=== PATIENT | male | born 1965 | race Caucasian/White ===

== ENCOUNTER 2018-12-09 13:43 | Outpatient (CLI) | payer MEDICARE, MEDICAID ==
[~2018-12-09 13:43] MED LIST: ALBU18HF2 INH; ALLO300T2 PO; ATEN-169 PO; ATOR20TA PO; BACL10TA PO; DILT30TA34 PO; DULO60CA45 PO; FLO0.4C PO; GABA-530 PO; GARL1TAB2 PO; LISI1TAB13 PO; MULT-1074 PO; NABU500T2 PO; NITR0.4T SL; OMEG1CAP2; OMEG300C3; OXYC-511 PO; PANT40TA4 PO; ZIPR60CA2 PO; marijuana
[2018-12-09] MEDS ORDERED: ALBU18HF2 INH (14:40)
[2018-12-09 15:03] LABS: BASOPHILS % (AUTO) 0.5 % (0-1); EOSINOPHILS # (AUTO) 0.3 X10'3 (0-0.9); LYMPHOCYTES # (AUTO) 1.2 X10'3 (1.1-4.8); LYMPHOCYTES % (AUTO) 14.3 % (21-51); MEAN CORPUSCULAR HEMOGLOBIN 31.1 PG (27.0-31.0); MEAN CORPUSCULAR HGB CONC 34.5 g/dL (33.0-36.5); MEAN CORPUSCULAR VOLUME 90.1 FL (78-98); MEAN PLATELET VOLUME 8.6 FL (7.4-10.4); MONOCYTES # (AUTO) 0.5 X10'3 (0-0.9); MONOCYTES % (AUTO) 6.3 % (2-12); NEUTROPHILS # (AUTO) 6.4 X10'3 (1.8-7.7); NEUTROPHILS % (AUTO) 75.9 % (42-75); PRE OP HEMATOCRIT 41.2 % (42.0-52.0); PRE OP HEMOGLOBIN 14.2 g/dL (14.0-17.9); PRE OP PLATELET COUNT 258 X10'3 (140-440); RED BLOOD COUNT 4.57 X10'6 (4.70-6.10); RED CELL DISTRIBUTION WIDTH 13.7 % (11.5-14.5)
[2018-12-09 15:10] LABS: CLARITY,URINE CLOUDY (Clear); COLOR,URINE YELLOW (Yellow); GLUCOSE, URINE NEGATIVE (Neg); KETONES,URINE NEGATIVE (Neg); LEUKOCYTE ESTERASE ,URINE MODERATE (Neg); NITRITES, URINE POSITIVE (Neg); OCCULT BLOOD,URINE TRACE-INTACT (Neg); PH,URINE 6.5 (4.8-8.0); PROTEIN,URINE NEGATIVE (Neg); UROBILINOGEN,URINE 0.2 E.U/dL (0.2-1.0)
[2018-12-09 15:12] LABS: UA COLLECTION TYPE NON-SPECIFIED
[2018-12-09 15:13] LABS: ALBUMIN 3.8 G/DL (3.4-5.0); ALBUMIN/GLOBULIN RATIO 1.1 (1.1-1.5); ALKALINE PHOSPHATASE 69 IU/L (46-116); BLOOD UREA NITROGEN 19 MG/DL (7-18); BUN/CREATININE RATIO 14.7 (5.4-32.0); CALCIUM 9.6 MG/DL (8.5-10.1); CHLORIDE 106 MMOL/L (99-107); CREATININE 1.29 MG/DL (0.60-1.10); PRE OP ALT 27 U/L (30-65); PRE OP ANION GAP 10 (8-16); PRE OP AST 15 U/L (10-37); PRE OP BILIRUB, TOTAL 0.2 MG/DL (0.0-1.0); PRE OP GLUCOSE 159 MG/DL (70-104); PRE OP POTASSIUM 4.4 MMOL/L (3.4-5.1); PRE OP SODIUM 142 MMOL/L (135-145); TOTAL CARBON DIOXIDE 26.5 MMOL/L (24-32); TOTAL PROTEIN 7.3 G/DL (6.4-8.2); eGFR 58 ML/MIN
[2018-12-09 15:18] LABS: BACTERIA,URINE 3+ /HPF (Neg); SQUAMOUS EPITHELIAL CELL,UR FEW /LPF (FEW)
[2018-12-09 15:19] LABS: RBC,URINE 0-2 /HPF (0-2)
[2018-12-09] MEDS ORDERED: ASCO500C15 PO (17:44)
[2018-12-09] MEDS ORDERED: NAPR220T67 PO (17:44)
[2018-12-09] MEDS ORDERED: ATOR20TA66 PO (17:47)
[2018-12-09] MEDS ORDERED: HYDR50TA3 PO (17:47)
[2018-12-09] MEDS ORDERED: LISI40TA4 PO (17:47)
[2018-12-09] MEDS ORDERED: METO-411 PO (17:47)
[2018-12-09] MEDS ORDERED: FENO160T30 PO (17:47)
== END 2018-12-09 23:59 | disposition home or self-care (01) ==
LOC: PRE-OP 13:43 → EDSTATUS 12-14 09:15
PROVIDERS: ATTEND Surgery
DX: K43.2 Incisional hernia without obstruction or gangrene (principal); Z53.9 Procedure and treatment not carried out, unspecified reason; Z01.810 Encounter for preprocedural cardiovascular examination; Z01.812 Encounter for preprocedural laboratory examination; N39.0 Urinary tract infection, site not specified; B96.20 Unspecified Escherichia coli [E. coli] as the cause of diseases classified elsewhere
CPT/HCPCS: 36415; 80053; 81001; 85025; 87077; 87088; 87186; 93005

== ENCOUNTER 2019-03-15 06:19 | Day surgery (SDC) | payer MEDICARE, MEDICAID ==
[2019-03-11 10:47] LABS: BASOPHILS # (AUTO) 0.1 X10'3 (0-0.2); BASOPHILS % (AUTO) 0.5 % (0-1); EOSINOPHILS # (AUTO) 0.2 X10'3 (0-0.9); EOSINOPHILS % (AUTO) 1.9 % (0-6); LYMPHOCYTES # (AUTO) 1.4 X10'3 (1.1-4.8); LYMPHOCYTES % (AUTO) 15.5 % (21-51); MEAN CORPUSCULAR HEMOGLOBIN 30.8 PG (27.0-31.0); MEAN CORPUSCULAR HGB CONC 33.5 g/dL (33.0-36.5); MONOCYTES # (AUTO) 0.8 X10'3 (0-0.9); MONOCYTES % (AUTO) 8.9 % (2-12); NEUTROPHILS # (AUTO) 6.8 X10'3 (1.8-7.7); NEUTROPHILS % (AUTO) 73.2 % (42-75); PRE OP HEMATOCRIT 43.8 % (42.0-52.0); PRE OP HEMOGLOBIN 14.7 g/dL (14.0-17.9); PRE OP PLATELET COUNT 245 X10'3 (140-440); RED BLOOD COUNT 4.77 X10'6 (4.70-6.10); RED CELL DISTRIBUTION WIDTH 13.3 % (11.5-14.5)
[2019-03-11 10:52] LABS: CLARITY,URINE CLEAR (Clear); COLOR,URINE YELLOW (Yellow); GLUCOSE, URINE NEGATIVE (Neg); KETONES,URINE NEGATIVE (Neg); LEUKOCYTE ESTERASE ,URINE NEGATIVE (Neg); NITRITES, URINE NEGATIVE (Neg); OCCULT BLOOD,URINE NEGATIVE (Neg); PROTEIN,URINE NEGATIVE (Neg); UROBILINOGEN,URINE 0.2 E.U/dL (0.2-1.0)
[2019-03-11 10:58] LABS: PRE OP PROTIME 10.6 SECONDS (9.0-12.0)
[2019-03-11 10:59] LABS: UA COLLECTION TYPE NON-SPECIFIED
[2019-03-11 11:01] LABS: ALBUMIN 4.5 G/DL (3.4-5.0); ALBUMIN/GLOBULIN RATIO 1.4 (1.1-1.5); ALKALINE PHOSPHATASE 63 IU/L (46-116); BLOOD UREA NITROGEN 32 MG/DL (7-18); BUN/CREATININE RATIO 18.3 (5.4-32.0); CALCIUM 9.5 MG/DL (8.5-10.1); CHLORIDE 99 MMOL/L (99-107); CREATININE 1.75 MG/DL (0.60-1.10); PRE OP ALT 30 U/L (30-65); PRE OP ANION GAP 11 (8-16); PRE OP AST 15 U/L (10-37); PRE OP BILIRUB, TOTAL 0.4 MG/DL (0.0-1.0); PRE OP GLUCOSE 109 MG/DL (70-104); PRE OP POTASSIUM 4.5 MMOL/L (3.4-5.1); PRE OP SODIUM 135 MMOL/L (135-145); TOTAL CARBON DIOXIDE 25.4 MMOL/L (24-32); TOTAL PROTEIN 7.7 G/DL (6.4-8.2); eGFR 41 ML/MIN
[~2019-03-15] VITALS: Ht 172.7 cm; Wt 122.5 kg
[~2019-03-15 06:19] MED LIST changes: +ALBU2.5V10; -ATEN-169 PO; -ATOR20TA PO; -BACL10TA PO; +DILT120C51 PO; -DILT30TA34 PO; +DOCUMENT DATE & TIME OF BETA-BLOCKER PO ONE; +FENO160T30 PO; +FISH12002 PO; -GARL1TAB2 PO; +HYDR50TA3 PO; +IBUP-1984 PO; -LISI1TAB13 PO; +LISI40TA4 PO; +METO-411 PO; -NABU500T2 PO; -NITR0.4T SL; +NUGENIX PO; -OMEG1CAP2; -OMEG300C3; -OXYC-511 PO; +albuterol 2.5 MG/3 ML nebule NEB ONE; +clindamycin-Cleocin 900mg/D5W 50 ML IV ONE; +famotidine 20mg tablet PO ONE; +ringers solution, lacted 1,000 ML IV SCH
[2019-03-15] MEDS ORDERED: BUPIVAcaine/PF 2.5 mg/ml (0.25%) 30ml vial ONE (06:46)
[2019-03-15] MEDS ORDERED: ceFAZolin 1000mg inj ONE (06:46)
[2019-03-15] MEDS ORDERED: acetaminophen 325mg tablet PO ONE (08:45)
--- NOTE | 2019-03-15 09:00 | NUR ---
(0650) ARRIVED TO PAS UNIT VS: T 103.3, BP139/75, P 101, R 20, SAO2 95%. PT STATES HE STARTED TO FEEL "BAD" YESTERDAY. MOIST COUGH PRESENT, DENIES SPUTUM. LS DIMINISHED BILAT. DR DACOSTA NOTIFIED. SURGERY CANCELED AND NEW ORDERS RECEIVED. (0840) CURRENT T 102.0. DR DACOSTA PRESENT AT BEDSIDE, DISCUSSED TREATMENT AND RESCHEDULING OF SURGERY WITH PT. PRESCRIPTION FAXED TO PT'S PHARMACY. (0900) PT VERBALIZED UNDERSTANDING OF DC INSTRUCTIONS, HOME VIA AMBULATORY WITH SON TO PRIVATE CAR.
== END 2019-03-15 09:00 | disposition home or self-care (01) ==
LOC: PAS 06:19
PROVIDERS: ATTEND Surgery
DX: K43.2 Incisional hernia without obstruction or gangrene (principal); Z53.8 Procedure and treatment not carried out for other reasons; J44.9 Chronic obstructive pulmonary disease, unspecified; K21.9 Gastro-esophageal reflux disease without esophagitis; F32.9 Major depressive disorder, single episode, unspecified; F41.9 Anxiety disorder, unspecified; Z87.891 Personal history of nicotine dependence; Z98.890 Other specified postprocedural states; Z90.49 Acquired absence of other specified parts of digestive tract; Z96.653 Presence of artificial knee joint, bilateral; Z88.0 Allergy status to penicillin
CPT/HCPCS: 36415; 71045; 80053; 81003; 85025; 85610; 85730; J0690; J3490; J7120

== ENCOUNTER 2019-03-29 10:48 | Observation (INO) | payer MEDICARE, MEDICAID ==
[2019-03-28 12:02] LABS: BASOPHILS % (AUTO) 0.4 % (0-1); EOSINOPHILS # (AUTO) 0.2 X10'3 (0-0.9); EOSINOPHILS % (AUTO) 1.6 % (0-6); LYMPHOCYTES # (AUTO) 1.2 X10'3 (1.1-4.8); LYMPHOCYTES % (AUTO) 11.5 % (21-51); MEAN CORPUSCULAR HEMOGLOBIN 30.9 PG (27.0-31.0); MEAN CORPUSCULAR HGB CONC 33.8 g/dL (33.0-36.5); MEAN CORPUSCULAR VOLUME 91.6 FL (78-98); MEAN PLATELET VOLUME 8.5 FL (7.4-10.4); MONOCYTES # (AUTO) 0.6 X10'3 (0-0.9); MONOCYTES % (AUTO) 6.2 % (2-12); NEUTROPHILS # (AUTO) 8.1 X10'3 (1.8-7.7); NEUTROPHILS % (AUTO) 80.3 % (42-75); PRE OP HEMATOCRIT 41.9 % (42.0-52.0); PRE OP HEMOGLOBIN 14.2 g/dL (14.0-17.9); PRE OP PLATELET COUNT 266 X10'3 (140-440); RED BLOOD COUNT 4.58 X10'6 (4.70-6.10); RED CELL DISTRIBUTION WIDTH 13.4 % (11.5-14.5)
[2019-03-28 12:07] LABS: CLARITY,URINE CLEAR (Clear); COLOR,URINE YELLOW (Yellow); GLUCOSE, URINE NEGATIVE (Neg); KETONES,URINE NEGATIVE (Neg); LEUKOCYTE ESTERASE ,URINE NEGATIVE (Neg); NITRITES, URINE NEGATIVE (Neg); OCCULT BLOOD,URINE NEGATIVE (Neg); PROTEIN,URINE NEGATIVE (Neg); UROBILINOGEN,URINE 0.2 E.U/dL (0.2-1.0)
[2019-03-28 12:09] LABS: UA COLLECTION TYPE CLN CATCH MIDSTREAM
[2019-03-28 12:12] LABS: ALBUMIN 3.9 G/DL (3.4-5.0); ALBUMIN/GLOBULIN RATIO 1.1 (1.1-1.5); ALKALINE PHOSPHATASE 64 IU/L (46-116); BLOOD UREA NITROGEN 28 MG/DL (7-18); BUN/CREATININE RATIO 19.2 (5.4-32.0); CALCIUM 9.2 MG/DL (8.5-10.1); CHLORIDE 107 MMOL/L (99-107); CREATININE 1.46 MG/DL (0.60-1.10); PRE OP ALT 33 U/L (30-65); PRE OP ANION GAP 6 (8-16); PRE OP AST 17 U/L (10-37); PRE OP BILIRUB, TOTAL 0.3 MG/DL (0.0-1.0); PRE OP GLUCOSE 129 MG/DL (70-104); PRE OP POTASSIUM 4.6 MMOL/L (3.4-5.1); PRE OP SODIUM 141 MMOL/L (135-145); TOTAL CARBON DIOXIDE 28.1 MMOL/L (24-32); TOTAL PROTEIN 7.3 G/DL (6.4-8.2); eGFR 50 ML/MIN
[2019-03-29] VITALS (20 sets, daily range): BP systolic 123–155; BP diastolic 73–94
[~2019-03-29] VITALS: Ht 172.7 cm; Wt 123.6 kg
[~2019-03-29 10:48] MED LIST changes: -albuterol 2.5 MG/3 ML nebule NEB ONE; -ringers solution, lacted 1,000 ML IV SCH
[2019-03-29] MEDS ORDERED: ringers solution, lacted 1,000 ML IV SCH (13:01)
[2019-03-29] MEDS ORDERED: ondansetron/PF 4mg/2ml inj IV PRN ×2 (13:05→15:30)
[2019-03-29] MEDS ORDERED: proCHLORperazine 10 MG/2 ml inj IV PRN (13:05)
[2019-03-29] MEDS ORDERED: meperidine/PF 25mg/ml syringe IV PRN ×3 (13:05)
[2019-03-29] MEDS ORDERED: morphine 4 MG/ML inj SYRINge IV PRN ×2 (13:05)
[2019-03-29] MEDS ORDERED: ceFAZolin 1000mg inj ONE (13:42)
[2019-03-29] MEDS ORDERED: BUPIVAcaine/PF 2.5 mg/ml (0.25%) 30ml vial ONE (13:42)
[2019-03-29] MEDS ORDERED: sevoflurane 250ml liquid IH ONE (13:46)
[2019-03-29] MEDS ORDERED: glycopyrrolate 0.2mg/ml inj ONE (13:46)
[2019-03-29] MEDS ORDERED: rocuronium 10mg/ml inj IV ONE ×2 (13:46→14:57)
[2019-03-29] MEDS ORDERED: midazolam 2 mg/2 ml injection ONE (13:56)
[2019-03-29] MEDS ORDERED: fentaNYL /PF 50mcg/ml 5ml ampule ONE (13:57)
[2019-03-29] MEDS ORDERED: propofol inj 20 ML IV ONE ×2 (13:57→14:57)
[2019-03-29] MEDS ORDERED: dexamethasone sod phosphate 4mg/ml inj. ONE (14:57)
[2019-03-29] MEDS ORDERED: neostigmine methylsulfate 1 MG/ML 10ml vial ONE (14:58)
[2019-03-29] MEDS ORDERED: ondansetron/PF 4mg/2ml inj ONE (14:58)
[2019-03-29] MEDS ORDERED: ePHEDrine 50MG/ML INJ. ONE (15:07)
[2019-03-29] MEDS ORDERED: HYDROcodone/acetaminophen 5mg/325mg tablet PO PRN (15:30)
--- NOTE | 2019-03-29 15:30 | NUR ---
Received from OR via bed, accompanied by Anesthesiologist. Report received. Initial physical assessment done and recorded.
--- NOTE | 2019-03-29 17:00 | NUR ---
Discharge criteria met, report to receiving floor. Transferred to room in stable condition.
[2019-03-29] MEDS: HYDROcodone/acetaminophen 10/325mg tab PO PRN ×2 (17:06→21:37)
[2019-03-29] MEDS: ketorolac tromethamine 15mg/ml inj. IV PRN (17:15)
[2019-03-29] MEDS ORDERED: ibuprofen 200mg tablet PO PRN (17:15)
[2019-03-29] MEDS ORDERED: albuterol 2.5 MG/3 ML nebule NEB PRN (17:15)
--- NOTE | 2019-03-29 17:29 | NUR ---
Patient arrived to unit in a lot of pain after walking to the bed. Patient tolerated well but needed pain medication right away. Pain meds given. Water given. Patient oriented to the room, call light within reach.
[2019-03-29] MEDS: potassium CL 20mEq in D5-1/2NS 1,000 ML IV SCH (18:40)
--- NOTE | 2019-03-29 18:40 | NUR ---
Received report from MARBELLA Reyes. Patient is awake and alert on room air, in no apparent distress. Call light and items of frequent use within reach. Will continue to monitor.
--- NOTE | 2019-03-29 18:50 | NUR ---
Report given to [facility] nurse.
[2019-03-29] MEDS: gabapentin 300mg capsule PO SCH (20:31)
[2019-03-29] MEDS: enoxaparin 30mg/0.3ml syringe SQ SCH (20:32)
[2019-03-29] MEDS: clindamycin 600mg/D5W 50ml 50 ML IV SCH (20:32)
[2019-03-29] MEDS ORDERED: ziprasidone 20mg capsule PO SCH (21:00)
[2019-03-29] MEDS ORDERED: diltiazem CD 120mg capsule (once-daily) PO SCH (21:00)
[2019-03-29] MEDS ORDERED: tamsulosin 0.4mg capsule PO SCH (21:00)
[2019-03-29] MEDS ORDERED: NUGENIX PO SCH (21:00)
[2019-03-30] VITALS: BP 106/76
[2019-03-30] MEDS: potassium CL 20mEq in D5-1/2NS 1,000 ML IV SCH ×2 (00:45→07:30)
[2019-03-30] MEDS: ketorolac tromethamine 15mg/ml inj. IV PRN ×2 (00:47→10:56)
[2019-03-30 04:00] VITALS: BP 139/85
[2019-03-30] MEDS: HYDROcodone/acetaminophen 10/325mg tab PO PRN ×2 (05:28→10:57)
--- NOTE | 2019-03-30 06:35 | NUR ---
Problems reprioritized. Patient report given, questions answered & plan of care reviewed with MARBELLA Reyes.
[2019-03-30 07:24] VITALS: BP 162/69
[2019-03-30] MEDS ORDERED: fenofibrate 145mg tablet PO SCH (08:00)
[2019-03-30] MEDS ORDERED: duloxetine 30mg CAPSULE.DR PO SCH (08:00)
[2019-03-30] MEDS ORDERED: HYDROchlorothiazide 25mg tablet PO SCH (08:00)
[2019-03-30] MEDS ORDERED: non-formulary drug (Fish Oil/Borage/Flax/Om3,6,9#1 (Omega 3-6-9 1,200 mg Softgel) 1 CAP) PO SCH (08:00)
[2019-03-30] MEDS ORDERED: lisinopril 20mg tablet PO SCH (08:00)
[2019-03-30] MEDS ORDERED: multivitamins, therapeutics tablet PO SCH (08:00)
[2019-03-30] MEDS ORDERED: metoprolol succinate 25mg (24-HOUR) SR. Tablet PO SCH (08:00)
[2019-03-30] MEDS ORDERED: allopurinol 300 MG tablet PO SCH (08:00)
[2019-03-30] MEDS ORDERED: pantoprazole 40mg Tablet.DR PO SCH (08:00)
[2019-03-30] MEDS: gabapentin 300mg capsule PO SCH ×2 (08:08→13:01)
[2019-03-30] MEDS: clindamycin 600mg/D5W 50ml 50 ML IV SCH (08:17)
[2019-03-30] MEDS: enoxaparin 30mg/0.3ml syringe SQ SCH (08:17)
[2019-03-30 11:00] VITALS: BP 139/80
--- NOTE | 2019-03-30 15:39 | NUR ---
Patient discharge on nursing end, waiting on ride from . all belongings packed with patient, VSS. Education completed. Patient will make appointment to see Dr. Rivera in 1 week. Medication doses went over with patient with understanding.
== END 2019-03-30 15:45 | disposition home or self-care (01) ==
LOC: PAS 10:48 → OBSVTOIN 17:13 → INTOOBSV 17:13 → SUR 3N 17:13
PROVIDERS: ADMIT Surgery; ATTEND Surgery
DX: K43.2 Incisional hernia without obstruction or gangrene (principal)
CPT/HCPCS: 36415; 49561; 80053; 81003; 82948; 85025; 87081; 96365; 96366; 96372; 96375; 96376; C1713; C1781; G0378; J0690; J1100; J1650; J1885; J2250; J2270; J2405; J2704; J2710; J3010; J3480; J3490; 88302; A4215; A4618; A6449; A7000; J7120

== ENCOUNTER 2019-04-01 09:20 | Inpatient (IN) | payer MEDICARE, MEDICAID ==
[~2019-04-01] VITALS: Ht 172.7 cm; Wt 125.0 kg
[2019-04-01] VITALS (15 sets, daily range): BP systolic 99–144; BP diastolic 48–90
[~2019-04-01 09:20] MED LIST changes: -DOCUMENT DATE & TIME OF BETA-BLOCKER PO ONE; -clindamycin-Cleocin 900mg/D5W 50 ML IV ONE; -famotidine 20mg tablet PO ONE
[2019-04-01 10:09] LABS: CLARITY,URINE CLEAR (Clear); COLOR,URINE STRAW (Yellow); GLUCOSE, URINE NEGATIVE (Neg); KETONES,URINE NEGATIVE (Neg); LEUKOCYTE ESTERASE ,URINE NEGATIVE (Neg); NITRITES, URINE NEGATIVE (Neg); OCCULT BLOOD,URINE NEGATIVE (Neg); PH,URINE 5.5 (4.8-8.0); PROTEIN,URINE NEGATIVE (Neg); UROBILINOGEN,URINE 0.2 E.U/dL (0.2-1.0)
[2019-04-01 10:11] LABS: UA COLLECTION TYPE NON-SPECIFIED
[2019-04-01 10:23] LABS: ALANINE AMINOTRANSFERASE 26 U/L (12-78); ALBUMIN/GLOBULIN RATIO 0.9 (1.1-1.5); ALKALINE PHOSPHATASE 49 IU/L (46-116); ANION GAP 6 (8-16); ASPARTATE AMINO TRANSFERASE 17 U/L (10-37); BASOPHILS % (AUTO) 0.1 % (0-1); BILIRUBIN,TOTAL 0.3 MG/DL (0.1-1.0); BLOOD UREA NITROGEN 50 MG/DL (7-18); BUN/CREATININE RATIO 25.5 (5.4-32.0); CALCIUM 9.1 MG/DL (8.5-10.1); CHLORIDE 101 MMOL/L (99-107); CREATININE 1.96 MG/DL (0.60-1.10); EOSINOPHILS # (AUTO) 0.1 X10'3 (0-0.9); EOSINOPHILS % (AUTO) 1.1 % (0-6); GLUCOSE 107 MG/DL (70-104); HEMATOCRIT 23.8 % (42.0-52.0); HEMOGLOBIN 8.2 g/dl (14.0-17.9); LIPASE 181 U/L (73-393); LYMPHOCYTES # (AUTO) 0.8 X10'3 (1.1-4.8); LYMPHOCYTES % (AUTO) 7.8 % (21-51); MEAN CORPUSCULAR HEMOGLOBIN 31.3 PG (27.0-31.0); MEAN CORPUSCULAR HGB CONC 34.5 g/dL (33.0-36.5); MEAN PLATELET VOLUME 9.4 FL (7.4-10.4); MONOCYTES # (AUTO) 1.3 X10'3 (0-0.9); MONOCYTES % (AUTO) 12.2 % (2-12); NEUTROPHILS # (AUTO) 8.4 X10'3 (1.8-7.7); NEUTROPHILS % (AUTO) 78.8 % (42-75); PLATELET COUNT 220 X10'3 (140-440); POTASSIUM 5.6 MMOL/L (3.5-5.1); RED BLOOD COUNT 2.61 X10'6 (4.70-6.10); RED CELL DISTRIBUTION WIDTH 13.7 % (11.5-14.5); SODIUM 134 MMOL/L (135-145); TOTAL CARBON DIOXIDE 27.1 MMOL/L (24-32); TOTAL PROTEIN 6.3 G/DL (6.4-8.2); WHITE BLOOD COUNT 10.7 X10'3 (4.5-11.0); eGFR 36 ML/MIN
[2019-04-01] MEDS ORDERED: insulin regular, human 10 units/0.1 ml syringe IV ONE (10:45)
[2019-04-01] MEDS ORDERED: dextrose 50%-water 50ml dispensing syringe IV ONE (10:45)
--- NOTE | 2019-04-01 10:54 | NUR ---
ASAD FRANCES [phone]
--- NOTE | 2019-04-01 10:58 | NUR ---
DR DACOSTA WAS AT BEDSIDE, BOTH DR DACOSTA AND DR LYA INFORMED THAT PATIENT HAS NO RETROPERITONEAL BRUISING OR TENDERNESS
[2019-04-01] MEDS ORDERED: sodium bicarbonate (8.4%) 1 mEq/ml syringe IV ONE (11:00)
[2019-04-01] MEDS ORDERED: normal saline 1000ML IV soln IVB ONE (11:00)
[2019-04-01] MEDS ORDERED: ondansetron/PF 4mg/2ml inj IV ONE (11:15)
[2019-04-01 11:21] LABS: PARTIAL THROMBOPLASTIN TIME 28 SECONDS (22-32)
[2019-04-01] MEDS: morphine 4 MG/ML inj SYRINge IV PRN ×2 (11:21→13:26)
--- NOTE | 2019-04-01 11:38 | NUR ---
PT TO CT AND BACK
[2019-04-01 11:46] LABS: MAGNESIUM 2.2 MG/DL (1.5-2.4)
[2019-04-01] MEDS ORDERED: ATOR20TA66 PO (12:46)
[2019-04-01] MEDS ORDERED: BACL20TA7 PO (12:46)
[2019-04-01] MEDS ORDERED: magnesium 4gm in 100ml NS 100 ML IV PRN (12:55)
[2019-04-01] MEDS ORDERED: ondansetron/PF 4mg/2ml inj IV PRN ×2 (12:55→17:30)
[2019-04-01] MEDS ORDERED: magnesium Cl slow-release 64mg tablet PO PRN (12:55)
[2019-04-01] MEDS ORDERED: HYDROmorphone inj. 0.5 MG/0.5 ML DISP.SYRIN IV PRN (12:55)
[2019-04-01] MEDS ORDERED: potassium Cl 20 mEq SR tablet PO PRN ×2 (12:55)
[2019-04-01] MEDS ORDERED: HYDROmorphone 1 mg/ml syringe IV PRN (12:55)
[2019-04-01] MEDS ORDERED: magnesium 2GM in 50ml NS 50 ML IV PRN (12:55)
[2019-04-01] MEDS ORDERED: potassium CL 10mEq/100ml bag 100 ML IV PRN ×2 (12:55)
[2019-04-01] MEDS: normal saline 1000ml 1,000 ML IV SCH ×2 (13:25→22:47)
[2019-04-01] MEDS: gabapentin 300mg capsule PO SCH ×2 (13:26→20:41)
[2019-04-01 13:34] LABS: BASOPHILS % (AUTO) 0.2 % (0-1); EOSINOPHILS # (AUTO) 0.2 X10'3 (0-0.9); EOSINOPHILS % (AUTO) 1.4 % (0-6); HEMATOCRIT 22.5 % (42.0-52.0); HEMOGLOBIN 7.7 g/dl (14.0-17.9); LYMPHOCYTES % (AUTO) 9.2 % (21-51); MEAN CORPUSCULAR HEMOGLOBIN 31.1 PG (27.0-31.0); MEAN CORPUSCULAR VOLUME 91.3 FL (78-98); MEAN PLATELET VOLUME 8.8 FL (7.4-10.4); MONOCYTES # (AUTO) 1.4 X10'3 (0-0.9); MONOCYTES % (AUTO) 13.1 % (2-12); NEUTROPHILS # (AUTO) 8.2 X10'3 (1.8-7.7); NEUTROPHILS % (AUTO) 76.1 % (42-75); PLATELET COUNT 235 X10'3 (140-440); RED BLOOD COUNT 2.46 X10'6 (4.70-6.10); RED CELL DISTRIBUTION WIDTH 13.5 % (11.5-14.5); WHITE BLOOD COUNT 10.8 X10'3 (4.5-11.0)
--- NOTE | 2019-04-01 13:41 | NUR ---
attempted to call report to surgical per Gretchen"RN is in a room"
[2019-04-01 13:50] LABS: ALANINE AMINOTRANSFERASE 24 U/L (12-78); ALBUMIN 2.8 G/DL (3.4-5.0); ALBUMIN/GLOBULIN RATIO 0.9 (1.1-1.5); ALKALINE PHOSPHATASE 44 IU/L (46-116); ANION GAP 3 (8-16); ASPARTATE AMINO TRANSFERASE 18 U/L (10-37); BILIRUBIN,TOTAL 0.4 MG/DL (0.1-1.0); BLOOD UREA NITROGEN 49 MG/DL (7-18); BUN/CREATININE RATIO 27.1 (5.4-32.0); CALCIUM 8.6 MG/DL (8.5-10.1); CHLORIDE 105 MMOL/L (99-107); CREATININE 1.81 MG/DL (0.60-1.10); GLUCOSE 93 MG/DL (70-104); SODIUM 137 MMOL/L (135-145); TOTAL CARBON DIOXIDE 29.5 MMOL/L (24-32); eGFR 39 ML/MIN
--- NOTE | 2019-04-01 14:00 | NUR ---
Received report from MARBELLA Vera in ED. Patient arrived to floor with BP 99/48, HR 83, temp of 97.9, O2 sats 98% on room air. Will continue to monitor.
[2019-04-01] MEDS ORDERED: dronabinol 2.5mg capsule PO PRN (15:50)
[2019-04-01] MEDS ORDERED: hydrALAZINE 20mg/ml inj. IV PRN (17:30)
[2019-04-01] MEDS ORDERED: ringers solution, lacted 1,000 ML IV SCH (17:30)
[2019-04-01] MEDS ORDERED: labetalol 20mg/4ml (5mg/ml) syringe IV PRN (17:30)
[2019-04-01] MEDS ORDERED: morphine 4 MG/ML inj SYRINge IV PRN ×2 (17:30)
[2019-04-01] MEDS ORDERED: fentaNYL/PF 50MCG/1 ML 2ML syringe IV PRN (17:30)
--- NOTE | 2019-04-01 17:37 | NUR ---
Report given to MARBELLA Clarke in OR -nurse will be taking care of this patient. All questions and concerns addressed. Patient to go to surgery will continue to monitor.
--- NOTE | 2019-04-01 17:51 | NUR ---
Patient left in hospital bed to OR with OR staff. Pre-op checklist completed, chlorahexadine prep done on abdominal area. Blood to be transfused in OR.
[2019-04-01] MEDS ORDERED: sevoflurane 250ml liquid IH ONE (17:57)
[2019-04-01] MEDS ORDERED: MIDAZolam 5mg/5ml vial ONE (17:59)
[2019-04-01] MEDS ORDERED: fentaNYL /PF 50mcg/ml 5ml ampule ONE (17:59)
[2019-04-01] MEDS ORDERED: clindamycin phosphate 150mg/ml inj. ONE (18:15)
[2019-04-01] MEDS ORDERED: etomidate 2mg/ml inj. ONE (18:18)
[2019-04-01] MEDS ORDERED: rocuronium 10mg/ml inj IV ONE (18:18)
[2019-04-01] MEDS ORDERED: phenylephrine 10mg/ml inj. ONE ×2 (18:18→18:39)
[2019-04-01] MEDS ORDERED: albumin (Human) 5% 250ml 250 ML IV ONE ×4 (18:20→18:34)
[2019-04-01] MEDS ORDERED: albumin (Human) 5% 250ml 750 ML IV ONE (18:28)
--- NOTE | 2019-04-01 18:30 | NUR ---
Patient in room RAO 344. I have received report from Mile TYSON and had the opportunity to ask questions and assume patient care.
[2019-04-01] MEDS ORDERED: dexamethasone sod phosphate 4mg/ml inj. ONE (18:38)
[2019-04-01] MEDS ORDERED: ondansetron/PF 4mg/2ml inj ONE (18:38)
[2019-04-01] MEDS ORDERED: ePHEDrine 50MG/ML INJ. ONE (18:39)
[2019-04-01] MEDS ORDERED: neostigmine methylsulfate 1 MG/ML 10ml vial ONE (18:47)
[2019-04-01] MEDS ORDERED: glycopyrrolate 0.2mg/ml inj ONE (18:47)
--- NOTE | 2019-04-01 19:35 | NUR ---
Received from OR via BED , accompanied by Anesthesiologist DR SOW and report given by Anesthesiolgist, PATIENT WAKING UP, DENIES PAIN, V/S WNL, CSM INTACT, ABDOMEN DRESSING CDI WITH RILEY DRAIN X2 WITH MINIMAL OUTPUT AT THIS TIME, SCD ON, 20G PIV TO RUE, , SCD ON, F/C DRAINING CLEAR YELLOW URINE. ISTAT DRAWN AND NO NEW ORDERS AFTER IOT BEING REVIEWED BY DR SOW.
[2019-04-01 19:50] LABS: ISTAT CREATININE 1.7 mg/dL (0.8-1.3); ISTAT HGB 8.5 g/dl (14.0-18.0); ISTAT IONIZED CALCIUM 1.27 mmol/L (1.03-1.32); ISTAT K 5.2 mmol/L (3.5-5.1); POC BUN/CREATININE RATIO 23.5 (5.4-32.0)
[2019-04-01] MEDS: fentaNYL/PF 50MCG/1 ML 2ML syringe IV PRN ×2 (20:16→20:21)
--- NOTE | 2019-04-01 20:25 | NUR ---
PATIENT A&OX4, STATES PAIN BETTER CONTROLLED NOW, V/S WNL, CSM INTACT, ABDOMEN DRESSING CDI WITH RILEY DRAIN X2 WITH MINIMAL OUTPUT AT THIS TIME, SCD ON, 20G PIV TO RUE, , SCD ON, F/C DRAINING CLEAR YELLOW URINE. PATIENT TAKEN TO 344A WITH ALL BELONGINGS AND HOOKED UP TO MONITORS IN ROOM AND REPORT GIVEN TO RN WHO HAS TAKEN OVER PATIENT CARE. ADMIT
[2019-04-01] MEDS: diltiazem CD 120mg capsule (once-daily) PO SCH (20:41)
[2019-04-01] MEDS: ziprasidone 20mg capsule PO SCH (20:41)
[2019-04-01] MEDS: tamsulosin 0.4mg capsule PO SCH (20:41)
[2019-04-01 21:57] LABS: BASOPHILS % (AUTO) 0.1 % (0-1); EOSINOPHILS # (AUTO) 0.1 X10'3 (0-0.9); EOSINOPHILS % (AUTO) 0.6 % (0-6); HEMATOCRIT 25.7 % (42.0-52.0); HEMOGLOBIN 8.7 g/dl (14.0-17.9); LYMPHOCYTES # (AUTO) 0.5 X10'3 (1.1-4.8); LYMPHOCYTES % (AUTO) 4.6 % (21-51); MEAN CORPUSCULAR HEMOGLOBIN 30.1 PG (27.0-31.0); MEAN CORPUSCULAR HGB CONC 33.9 g/dL (33.0-36.5); MEAN CORPUSCULAR VOLUME 88.8 FL (78-98); MONOCYTES # (AUTO) 0.6 X10'3 (0-0.9); MONOCYTES % (AUTO) 5.6 % (2-12); NEUTROPHILS # (AUTO) 9.2 X10'3 (1.8-7.7); NEUTROPHILS % (AUTO) 89.1 % (42-75); PLATELET COUNT 191 X10'3 (140-440); RED BLOOD COUNT 2.89 X10'6 (4.70-6.10); WHITE BLOOD COUNT 10.4 X10'3 (4.5-11.0)
[2019-04-01] MEDS ORDERED: CADD PCA waste documentation MC PRN (22:20)
[2019-04-01] MEDS ORDERED: naloxone 0.4 mg/ml inj IV PRN (22:20)
[2019-04-01] MEDS: HYDROmorphone/NS 1 mg/ml CADD 50 ML IV SCH (22:38)
[2019-04-02] VITALS: BP 119/71
[2019-04-02 00:15] VITALS: BP 114/65
[2019-04-02] MEDS: HYDROmorphone/NS 1 mg/ml CADD 50 ML IV SCH ×12 (00:43→22:38)
[2019-04-02 03:27] VITALS: BP 121/60
[2019-04-02 05:13] LABS: BASOPHILS % (AUTO) 0.1 % (0-1); EOSINOPHILS % (AUTO) 0 % (0-6); HEMOGLOBIN 8.4 g/dl (14.0-17.9); LYMPHOCYTES # (AUTO) 0.3 X10'3 (1.1-4.8); LYMPHOCYTES % (AUTO) 2.4 % (21-51); MEAN CORPUSCULAR HEMOGLOBIN 29.9 PG (27.0-31.0); MEAN CORPUSCULAR HGB CONC 33.4 g/dL (33.0-36.5); MEAN CORPUSCULAR VOLUME 89.5 FL (78-98); MEAN PLATELET VOLUME 8.8 FL (7.4-10.4); MONOCYTES # (AUTO) 0.7 X10'3 (0-0.9); MONOCYTES % (AUTO) 5.8 % (2-12); NEUTROPHILS # (AUTO) 10.8 X10'3 (1.8-7.7); NEUTROPHILS % (AUTO) 91.7 % (42-75); PLATELET COUNT 215 X10'3 (140-440); RED CELL DISTRIBUTION WIDTH 15.5 % (11.5-14.5); WHITE BLOOD COUNT 11.8 X10'3 (4.5-11.0)
[2019-04-02 05:42] LABS: ALANINE AMINOTRANSFERASE 23 U/L (12-78); ALBUMIN 3.2 G/DL (3.4-5.0); ALKALINE PHOSPHATASE 38 IU/L (46-116); ANION GAP 6 (8-16); ASPARTATE AMINO TRANSFERASE 15 U/L (10-37); BILIRUBIN,TOTAL 0.4 MG/DL (0.1-1.0); BLOOD UREA NITROGEN 33 MG/DL (7-18); BUN/CREATININE RATIO 21.9 (5.4-32.0); CALCIUM 8.6 MG/DL (8.5-10.1); CHLORIDE 106 MMOL/L (99-107); CREATININE 1.51 MG/DL (0.60-1.10); GLUCOSE 149 MG/DL (70-104); SODIUM 139 MMOL/L (135-145); TOTAL CARBON DIOXIDE 26.8 MMOL/L (24-32); TOTAL PROTEIN 6.4 G/DL (6.4-8.2); eGFR 48 ML/MIN
[2019-04-02 06:00] VITALS: BP 119/73
[2019-04-02 06:03] LABS: POTASSIUM 6.4 MMOL/L (3.5-5.1)
--- NOTE | 2019-04-02 06:10 | NUR ---
Patient in room RAO 344. I have received report from Flako TYSON and had the opportunity to ask questions and assume patient care.
--- NOTE | 2019-04-02 06:57 | NUR ---
Problems reprioritized. Patient report given, questions answered & plan of care reviewed with Julia TYSON.
--- NOTE | 2019-04-02 07:10 | NUR ---
Spoke with , no new diet order for pt,only small amt of ice chips and lozenges (Sucrets)
[2019-04-02] MEDS ORDERED: non-formulary drug (Fish Oil/Borage/Flax/Om3,6,9#1 (Omega 3-6-9 1,200 mg Softgel) 1 CAP) PO SCH (08:00)
[2019-04-02] MEDS: K and/or MAG REPLACEMENT MC SCH (08:00)
[2019-04-02] MEDS: benzocaine/menthol oral lozeng 1 EACH BOX MM PRN ×2 (08:17→09:10)
[2019-04-02] MEDS: normal saline 1000ml 1,000 ML IV SCH ×2 (09:02→19:21)
[2019-04-02] MEDS: duloxetine 30mg CAPSULE.DR PO SCH (09:09)
[2019-04-02] MEDS: pantoprazole 40mg Tablet.DR PO SCH (09:09)
[2019-04-02] MEDS: ziprasidone 20mg capsule PO SCH ×2 (09:09→21:07)
[2019-04-02] MEDS: gabapentin 300mg capsule PO SCH ×3 (09:09→21:07)
[2019-04-02] MEDS: fenofibrate 145mg tablet PO SCH (09:09)
[2019-04-02] MEDS: atorvastatin 20mg tablet PO SCH (09:09)
[2019-04-02] MEDS: metoprolol succinate 25mg (24-HOUR) SR. Tablet PO SCH (09:10)
[2019-04-02] MEDS: multivitamins, therapeutics tablet PO SCH (09:10)
[2019-04-02] MEDS ORDERED: sodium bicarbonate (8.4%) 1 mEq/ml syringe IV ONE ×2 (10:05→18:45)
[2019-04-02] MEDS ORDERED: dextrose 50%-water 50ml dispensing syringe IV ONE ×2 (10:05→18:45)
[2019-04-02] MEDS ORDERED: insulin regular, human 10 units/0.1 ml syringe IV ONE ×2 (10:05→18:45)
[2019-04-02] MEDS ORDERED: calcium chloride 100 MG/1 ML inj IV ONE ×2 (10:05→18:45)
[2019-04-02] MEDS ORDERED: albuterol 2.5 MG/3 ML nebule NEB ONE (10:05)
[2019-04-02] MEDS ORDERED: LORazepam 1 MG tablet PO PRN (10:10)
--- NOTE | 2019-04-02 10:10 | NUR ---
spoke with MD alvarado elevated potassium,new orders received
[2019-04-02 11:00] VITALS: BP 126/69
[2019-04-02 11:37] LABS: BASOPHILS % (AUTO) 0.1 % (0-1); EOSINOPHILS % (AUTO) 0 % (0-6); HEMATOCRIT 25.4 % (42.0-52.0); HEMOGLOBIN 8.6 g/dl (14.0-17.9); LYMPHOCYTES # (AUTO) 0.4 X10'3 (1.1-4.8); LYMPHOCYTES % (AUTO) 3.3 % (21-51); MEAN CORPUSCULAR HEMOGLOBIN 30.7 PG (27.0-31.0); MEAN CORPUSCULAR HGB CONC 34.1 g/dL (33.0-36.5); MEAN CORPUSCULAR VOLUME 90.2 FL (78-98); MEAN PLATELET VOLUME 8.6 FL (7.4-10.4); MONOCYTES # (AUTO) 1.2 X10'3 (0-0.9); MONOCYTES % (AUTO) 8.7 % (2-12); NEUTROPHILS # (AUTO) 11.8 X10'3 (1.8-7.7); NEUTROPHILS % (AUTO) 87.9 % (42-75); PLATELET COUNT 255 X10'3 (140-440); RED BLOOD COUNT 2.81 X10'6 (4.70-6.10); RED CELL DISTRIBUTION WIDTH 15.5 % (11.5-14.5); WHITE BLOOD COUNT 13.4 X10'3 (4.5-11.0)
[2019-04-02 12:35] LABS: BASOPHILS % (AUTO) 0.3 % (0-1); EOSINOPHILS % (AUTO) 0 % (0-6); HEMATOCRIT 26.1 % (42.0-52.0); HEMOGLOBIN 8.8 g/dl (14.0-17.9); LYMPHOCYTES # (AUTO) 0.4 X10'3 (1.1-4.8); LYMPHOCYTES % (AUTO) 3.3 % (21-51); MEAN CORPUSCULAR HEMOGLOBIN 29.9 PG (27.0-31.0); MEAN CORPUSCULAR HGB CONC 33.8 g/dL (33.0-36.5); MEAN CORPUSCULAR VOLUME 88.6 FL (78-98); MEAN PLATELET VOLUME 8.3 FL (7.4-10.4); MONOCYTES # (AUTO) 1.2 X10'3 (0-0.9); MONOCYTES % (AUTO) 9.8 % (2-12); NEUTROPHILS # (AUTO) 10.9 X10'3 (1.8-7.7); NEUTROPHILS % (AUTO) 86.6 % (42-75); PLATELET COUNT 261 X10'3 (140-440); RED BLOOD COUNT 2.95 X10'6 (4.70-6.10); RED CELL DISTRIBUTION WIDTH 15.4 % (11.5-14.5); WHITE BLOOD COUNT 12.6 X10'3 (4.5-11.0)
[2019-04-02 12:51] LABS: ALANINE AMINOTRANSFERASE 24 U/L (12-78); ALBUMIN 3.1 G/DL (3.4-5.0); ALBUMIN/GLOBULIN RATIO 0.9 (1.1-1.5); ALKALINE PHOSPHATASE 40 IU/L (46-116); ANION GAP 7 (8-16); ASPARTATE AMINO TRANSFERASE 18 U/L (10-37); BILIRUBIN,TOTAL 0.5 MG/DL (0.1-1.0); BLOOD UREA NITROGEN 25 MG/DL (7-18); BUN/CREATININE RATIO 17.6 (5.4-32.0); CALCIUM 9.9 MG/DL (8.5-10.1); CHLORIDE 106 MMOL/L (99-107); CREATININE 1.42 MG/DL (0.60-1.10); GLUCOSE 114 MG/DL (70-104); POTASSIUM 5.2 MMOL/L (3.5-5.1); SODIUM 141 MMOL/L (135-145); TOTAL CARBON DIOXIDE 28.4 MMOL/L (24-32); TOTAL PROTEIN 6.6 G/DL (6.4-8.2); eGFR 52 ML/MIN
[2019-04-02 18:00] VITALS: BP 131/67
--- NOTE | 2019-04-02 18:03 | NUR ---
Problems reprioritized. Patient report given, questions answered & plan of care reviewed with Flako TYSON.
--- NOTE | 2019-04-02 18:30 | NUR ---
Patient in room RAO 344. I have received report from Julia TYSON and had the opportunity to ask questions and assume patient care.
[2019-04-02 18:35] LABS: ALANINE AMINOTRANSFERASE 25 U/L (12-78); ALBUMIN 3.1 G/DL (3.4-5.0); ALBUMIN/GLOBULIN RATIO 0.8 (1.1-1.5); ALKALINE PHOSPHATASE 43 IU/L (46-116); ANION GAP 8 (8-16); ASPARTATE AMINO TRANSFERASE 25 U/L (10-37); BILIRUBIN,TOTAL 0.7 MG/DL (0.1-1.0); BLOOD UREA NITROGEN 22 MG/DL (7-18); BUN/CREATININE RATIO 16.4 (5.4-32.0); CALCIUM 9.9 MG/DL (8.5-10.1); CHLORIDE 104 MMOL/L (99-107); CREATININE 1.34 MG/DL (0.60-1.10); GLUCOSE 121 MG/DL (70-104); POTASSIUM 5.5 MMOL/L (3.5-5.1); SODIUM 141 MMOL/L (135-145); TOTAL CARBON DIOXIDE 28.6 MMOL/L (24-32); TOTAL PROTEIN 6.8 G/DL (6.4-8.2); eGFR 55 ML/MIN
[2019-04-02] MEDS ORDERED: sodium polystyrene sulfonate 15gm/60ml oral suspension PO ONE (18:45)
--- NOTE | 2019-04-02 19:11 | NUR ---
Per pharmacist Santos, Sodium Bicarbonate and calcium chloride do not have to be diluted for IV push in the case of hyperkalemia. These medications were given to this patient earlier today for hyperkalemia undiluted.
[2019-04-02] MEDS ORDERED: calcium chloride inj. 1,000 MG in normal saline 100ml IV soln 90 ML IV ONE (19:35)
--- NOTE | 2019-04-02 20:22 | NUR ---
Called Tru GREENE about pt c/o and some altered mental state at times. Pt states odd things like " I thought I was in a different room" and is acting impulsive. Will continue to monitor patient closely and recheck K+ in AM per .
[2019-04-02] MEDS: diltiazem CD 120mg capsule (once-daily) PO SCH (21:07)
[2019-04-02] MEDS: tamsulosin 0.4mg capsule PO SCH (21:07)
[2019-04-03] VITALS (9 sets, daily range): BP systolic 133–185; BP diastolic 73–111
[2019-04-03] MEDS: HYDROmorphone/NS 1 mg/ml CADD 50 ML IV SCH ×12 (00:37→23:00)
--- NOTE | 2019-04-03 02:15 | NUR ---
Patient found to have drank "two sips" of a soda that his snuck into the hospital for him. Pt began to vomit the soda he drank and stated "help, I drank something I wasn't supposed to" several times. Pt soda put away and pt reeducated on post-op diet. Pt soon said he did not have nausea and did not have pain. Will continue to monitor.
--- NOTE | 2019-04-03 04:27 | NUR ---
Mor Ott MD PAGER ID: [phone] MESSAGE: Selene LaughlinA Surgical 5471 Flako RN Pt drank soda his gave him, is now vomiting bile. Pt was NPO post surgery. Batsheva not working. Please advise. Addendum: 04/03/19 at 0655 by Lux Linares RN Received order for NG tube, this RN, another RN, and ore charger attempted to place 16 fr in each nostril with no success. Pt stated "I have had my nose broken several times." Pt continued to vomit dark green emesis during this process. Order for reglan received and given IV. At this time, pt stated he felt a "pop" in his abdomen. Abdomen midline observed and seen that alexis were still intact under dressing, but small amts of serosanguinous drainage on gauze over midline. Drainage circled at 0600. Miguel GREENE called and gave orders for strict NPO and lidocaine for ng insertion and ok to try 14 fr ng tube. Lidocaine used, and 14 fr NG placed successfully. Placement was confirmed. 1400 Dark green stomach contents removed and ng set to low continuous. Pt states he felt relief. Continuing to monitor closely. Vitals as charted. As of 644, patient is lying in bed asleep with no s/s of distress. Breathing even and unlabored.
[2019-04-03] MEDS ORDERED: metoclopramide 5 mg/ml inj IV ONE (05:25)
[2019-04-03] MEDS ORDERED: LORazepam 2 mg/ml vial IV PRN (05:40)
[2019-04-03] MEDS ORDERED: LIDOcaine 2% 5ml jelly MM ONE (05:45)
[2019-04-03] MEDS: normal saline 1000ml 1,000 ML IV SCH ×2 (05:47→15:14)
[2019-04-03 06:18] LABS: BASOPHILS % (AUTO) 0.2 % (0-1); EOSINOPHILS % (AUTO) 0.1 % (0-6); HEMATOCRIT 31.2 % (42.0-52.0); HEMOGLOBIN 10.3 g/dl (14.0-17.9); LYMPHOCYTES # (AUTO) 0.7 X10'3 (1.1-4.8); LYMPHOCYTES % (AUTO) 4.1 % (21-51); MEAN CORPUSCULAR HEMOGLOBIN 29.9 PG (27.0-31.0); MEAN CORPUSCULAR HGB CONC 33.1 g/dL (33.0-36.5); MEAN CORPUSCULAR VOLUME 90.2 FL (78-98); MEAN PLATELET VOLUME 8.8 FL (7.4-10.4); MONOCYTES # (AUTO) 2.2 X10'3 (0-0.9); MONOCYTES % (AUTO) 12.5 % (2-12); NEUTROPHILS # (AUTO) 14.5 X10'3 (1.8-7.7); NEUTROPHILS % (AUTO) 83.1 % (42-75); PLATELET COUNT 398 X10'3 (140-440); RED BLOOD COUNT 3.46 X10'6 (4.70-6.10); RED CELL DISTRIBUTION WIDTH 15.8 % (11.5-14.5); WHITE BLOOD COUNT 17.4 X10'3 (4.5-11.0)
--- NOTE | 2019-04-03 06:24 | NUR ---
Patient in room RAO 344. I have received report from Flako TYSON and had the opportunity to ask questions and assume patient care.
[2019-04-03 06:27] LABS: ALANINE AMINOTRANSFERASE 25 U/L (12-78); ALBUMIN 2.9 G/DL (3.4-5.0); ALBUMIN/GLOBULIN RATIO 0.8 (1.1-1.5); ALKALINE PHOSPHATASE 47 IU/L (46-116); ANION GAP 6 (8-16); ASPARTATE AMINO TRANSFERASE 23 U/L (10-37); BLOOD UREA NITROGEN 19 MG/DL (7-18); BUN/CREATININE RATIO 13.7 (5.4-32.0); CALCIUM 10.2 MG/DL (8.5-10.1); CHLORIDE 105 MMOL/L (99-107); CREATININE 1.39 MG/DL (0.60-1.10); GLUCOSE 145 MG/DL (70-104); MAGNESIUM 1.4 MG/DL (1.5-2.4); POTASSIUM 4.7 MMOL/L (3.5-5.1); SODIUM 141 MMOL/L (135-145); TOTAL CARBON DIOXIDE 29.6 MMOL/L (24-32); TOTAL PROTEIN 6.7 G/DL (6.4-8.2); eGFR 53 ML/MIN
--- NOTE | 2019-04-03 06:30 | NUR ---
Problems reprioritized. Patient report given, questions answered & plan of care reviewed with Chey TYSON.
[2019-04-03 06:48] LABS: TOTAL CELLS COUNTED 100
[2019-04-03 06:49] LABS: ANISOCYTOSIS 1+; HYPOCHROMASIA 1+; PLATELET ESTIMATE NORMAL; POLYCHROMASIA 1+; TOXIC GRANULATION 1+
[2019-04-03] MEDS: gabapentin 300mg capsule PO SCH ×3 (08:00→20:37)
[2019-04-03] MEDS: multivitamins, therapeutics tablet PO SCH (08:00)
[2019-04-03] MEDS: ziprasidone 20mg capsule PO SCH ×2 (08:00→20:00)
[2019-04-03] MEDS: duloxetine 30mg CAPSULE.DR PO SCH (08:00)
[2019-04-03] MEDS: atorvastatin 20mg tablet PO SCH (08:00)
[2019-04-03] MEDS: pantoprazole 40mg Tablet.DR PO SCH (08:00)
[2019-04-03] MEDS: K and/or MAG REPLACEMENT MC SCH (08:00)
[2019-04-03] MEDS: metoprolol succinate 25mg (24-HOUR) SR. Tablet PO SCH (08:00)
[2019-04-03] MEDS: fenofibrate 145mg tablet PO SCH (08:10)
--- NOTE | 2019-04-03 11:59 | NUR ---
1100 vital signs 185/[address] Claros paged. manually rechecked 185/[address] Ladonna Claros Repaged awaiting reply
--- NOTE | 2019-04-03 12:22 | NUR ---
Repeat B/P 151/[address] Claros present on floor to see patient.
--- NOTE | 2019-04-03 13:34 | NUR ---
pt arrived to unit in a [facility] bed with all known belongings from Surgical unit. family at bed side. pt vss.
--- NOTE | 2019-04-03 13:34 | NUR ---
patient is for transfer to ACCE unit . Report given to christine TYSON. patient transferred 1330hrs . family present.
[2019-04-03] MEDS: metoprolol tartrate 1mg/ml inj IV SCH ×3 (13:52→20:06)
[2019-04-03] MEDS: baclofen 10mg tablet PO PRN (14:35)
--- NOTE | 2019-04-03 15:16 | NUR ---
TPN Consult: Pt s/p evacuation of large abdominal wall hematoma, reduction of small bowel, and repair of midline dehiscence per MD note. Per RN pt abdomen became distended today 2 days post-op and NG placed -1400ml output noted. To remains NPO pending PICC for TPN tomorrow per RN. Pt is only 2 days post-op and would benefit from opioid antagonist per MD approval for further GI stimulation post-op which RD d/w RN; received dilaudid previously. Pt did receive once dose reglan. LBM 03/31. Given only 2 days post-op, no BM yet post-op, and GI integrity remains intact TPN only indicated if expected 7-10 days NPO per ASPEN guidelines. No new notes yet today; will monitor for further GI results and MD notes. TPN recs below in case prolonged NPO. Rec: 1. IF TPN; Clinimix E 5/15 at 100ml/hr goal 2. IF TPN; separate 120ml 20% intralipid infusion to run Q12 hours daily at 10ml/hr 3. In total; to provide 2400ml fluid, 120g AA, 360g DEX(2.04mg/kg/min), and 1464 total non-protein kcals. Initiate at 30ml/hr and if tolerated Q12 advance to goal. 4. pro-kinetics and opioid antagonist post-op per MD approval 5. advance diet per MD to heart healthy Addendum: 04/03/19 at [address] Amended: Links added.
--- NOTE | 2019-04-03 16:50 | NUR ---
Pt O2 sat was dropping, so pt placed on 2L NC. Also, pt IV had been pulled out, so new access was obtained.
--- NOTE | 2019-04-03 17:36 | NUR ---
PAGER ID: [phone] MESSAGE: Good afternoon Dr. Loi Morton in 313 is dropping in saturation. We have called RT, but they would like you to evaluate for C-pap, Bi-pap. Art, [phone]
--- NOTE | 2019-04-03 18:00 | NUR ---
Patient in room MED 315. I have received report from MARBELLA Alcantar and had the opportunity to ask questions and assume patient care.
--- NOTE | 2019-04-03 18:19 | NUR ---
PAGER ID: [phone] MESSAGE: pt Nitish Morton rm 315. he has PO meds ordered. would you like the NG turned off for 30 mins after giving or how should we address the PO meds. Thank you MARBELLA Harrison ext [phone]
[2019-04-03] MEDS: metroNIDAZOLE-Flagyl 500mg/NS 100 ML IV SCH (18:40)
[2019-04-03] MEDS: lactobacillus rhamnosus 10,000 MMU CELLS/CAPSULE PO SCH (20:00)
[2019-04-03] MEDS: ciprofloxacin/D5W 200mg/100mL 100 ML IV SCH (20:06)
[2019-04-03] MEDS: tamsulosin 0.4mg capsule PO SCH (20:37)
--- NOTE | 2019-04-03 22:18 | NUR ---
Respiratory- Patient in 315 on ACCE, has high flow in the room. Need assistance setting up. Patient currently on NC with 2L. MARBELLA Bull ACCE [id number]
[2019-04-04] MEDS: metroNIDAZOLE-Flagyl 500mg/NS 100 ML IV SCH ×4 (00:14→23:58)
[2019-04-04] MEDS: normal saline 1000ml 1,000 ML IV SCH ×3 (00:55→20:55)
[2019-04-04 02:00] VITALS: BP 133/82
[2019-04-04] MEDS: HYDROmorphone/NS 1 mg/ml CADD 50 ML IV SCH ×12 (02:00→23:00)
--- NOTE | 2019-04-04 02:02 | NUR ---
Respiratory- pt: Blaire Morton in rm 315, orders in place for BiPaP/CPAP. Sent RT notification. Thank you, MARBELLA Bull [phone]
[2019-04-04] MEDS: metoprolol tartrate 1mg/ml inj IV SCH ×3 (02:13→21:00)
[2019-04-04 05:17] LABS: BASOPHILS % (AUTO) 0.1 % (0-1); EOSINOPHILS # (AUTO) 0.2 X10'3 (0-0.9); EOSINOPHILS % (AUTO) 2.3 % (0-6); HEMOGLOBIN 9.7 g/dl (14.0-17.9); LYMPHOCYTES # (AUTO) 0.7 X10'3 (1.1-4.8); LYMPHOCYTES % (AUTO) 9.2 % (21-51); MEAN CORPUSCULAR HEMOGLOBIN 30.3 PG (27.0-31.0); MEAN CORPUSCULAR HGB CONC 33.3 g/dL (33.0-36.5); MONOCYTES # (AUTO) 1.3 X10'3 (0-0.9); MONOCYTES % (AUTO) 17.1 % (2-12); NEUTROPHILS # (AUTO) 5.2 X10'3 (1.8-7.7); NEUTROPHILS % (AUTO) 71.3 % (42-75); PLATELET COUNT 374 X10'3 (140-440); RED BLOOD COUNT 3.19 X10'6 (4.70-6.10); RED CELL DISTRIBUTION WIDTH 15.2 % (11.5-14.5); WHITE BLOOD COUNT 7.3 X10'3 (4.5-11.0)
[2019-04-04 05:28] LABS: ALANINE AMINOTRANSFERASE 30 U/L (12-78); ALBUMIN 2.4 G/DL (3.4-5.0); ALBUMIN/GLOBULIN RATIO 0.6 (1.1-1.5); ALKALINE PHOSPHATASE 49 IU/L (46-116); ANION GAP 6 (8-16); ASPARTATE AMINO TRANSFERASE 23 U/L (10-37); BILIRUBIN,TOTAL 1.2 MG/DL (0.1-1.0); BLOOD UREA NITROGEN 23 MG/DL (7-18); BUN/CREATININE RATIO 18.5 (5.4-32.0); CALCIUM 9.2 MG/DL (8.5-10.1); CHLORIDE 105 MMOL/L (99-107); CREATININE 1.24 MG/DL (0.60-1.10); GLUCOSE 121 MG/DL (70-104); MAGNESIUM 1.5 MG/DL (1.5-2.4); POTASSIUM 4.2 MMOL/L (3.5-5.1); SODIUM 141 MMOL/L (135-145); TOTAL PROTEIN 6.1 G/DL (6.4-8.2); eGFR 61 ML/MIN
[2019-04-04 06:00] VITALS: BP 138/79
[2019-04-04 06:05] LABS: TOTAL CELLS COUNTED 100
[2019-04-04 06:06] LABS: PLATELET ESTIMATE NORMAL
[2019-04-04 06:07] LABS: POLYCHROMASIA 1+
--- NOTE | 2019-04-04 06:33 | NUR ---
Patient in room MED 315. I have received report from Katharine and had the opportunity to ask questions and assume patient care.
--- NOTE | 2019-04-04 06:38 | NUR ---
Patient in room MED 315. I have received report from Ml and had the opportunity to ask questions and assume patient care.
[2019-04-04] MEDS: gabapentin 300mg capsule PO SCH ×3 (07:58→20:30)
[2019-04-04] MEDS: ziprasidone 20mg capsule PO SCH ×2 (07:59→20:00)
[2019-04-04] MEDS: duloxetine 30mg CAPSULE.DR PO SCH (08:00)
[2019-04-04] MEDS: K and/or MAG REPLACEMENT MC SCH (08:00)
[2019-04-04] MEDS: lactobacillus rhamnosus 10,000 MMU CELLS/CAPSULE PO SCH ×2 (08:01→20:00)
[2019-04-04] MEDS: multivitamins, therapeutics tablet PO SCH (08:01)
[2019-04-04] MEDS: atorvastatin 20mg tablet PO SCH (08:01)
[2019-04-04] MEDS: fenofibrate 145mg tablet PO SCH (08:01)
[2019-04-04] MEDS: ciprofloxacin/D5W 200mg/100mL 100 ML IV SCH ×2 (08:05→21:00)
--- NOTE | 2019-04-04 08:10 | NUR ---
PAGER ID: [phone] MESSAGE: [phone]-Karen. Can I start this pt's oral meds and hold suction for 30mins or do you want to continue to hold. Pt. does have psyc meds. Do you want to switch to IV? Dennys TYSON [phone]
[2019-04-04] MEDS: ipratropium/albuterol 3ml nebule NEB PRN (09:45)
[2019-04-04 11:00] VITALS: BP 144/90
--- NOTE | 2019-04-04 12:09 | NUR ---
PAGER ID: [phone] MESSAGE: [phone]-[id number]. Do you want to sign this pt's PICC consent? Dr. Rivera did not do it. Dennys TYSON [phone]
--- NOTE | 2019-04-04 13:34 | NUR ---
TPN Consult: per CT note from today patient has dilated, air filled loops concerning for small bowel obstruction. Pt s/p evacuation of large abdominal wall hematoma, reduction of small bowel, and repair of midline dehiscence per MD note. PICC line placement pending. Per RN pt abdomen became distended today 2 days post-op and NG placed -1400ml output noted. LBM 8/1. Given only 2 days post-op, no BM yet post-op, and GI integrity remains intact TPN only indicated if expected 7-10 days NPO. Rec: 1. Clinimix E 5/15 at 100ml/hr goal to run continuously 2. Separate 120ml 20% intralipid infusion to run Q12 hours daily at 10ml/hr 3. In total; to provide 2400ml fluid, 120g AA, 360g DEX(2.04mg/kg/min), and 1464 total non-protein kcals. Initiate at 30ml/hr and if tolerated Q12 advance to goal. 4. advance diet per MD as medically indicated when bowel obstruction resolves to heart healthy Addendum: 04/04/19 at [address] Amended: Links added.
[2019-04-04] MEDS ORDERED: metoprolol tartrate 1mg/ml inj IV SCH (14:00)
[2019-04-04 15:00] VITALS: BP 149/85
[2019-04-04] MEDS ORDERED: metroNIDAZOLE 500mg tablet PO SCH (16:00)
[2019-04-04] MEDS ORDERED: Trace element-5 inj. 0.5 ML in AA 5%/cal/electrolyte-TPN/D15W 1,000 ML IV SCH (17:00)
[2019-04-04 18:00] VITALS: BP 150/85
--- NOTE | 2019-04-04 19:29 | NUR ---
Patient in room MED 315. I have received report from Dennys TYSON and had the opportunity to ask questions and assume patient care.
[2019-04-04] MEDS: tamsulosin 0.4mg capsule PO SCH (20:30)
[2019-04-04] MEDS: fat emulsion IV bag 250 ML IV SCH (21:00)
[2019-04-04 22:00] VITALS: BP 139/78
[2019-04-04] MEDS ORDERED: ciprofloxacin 250mg tablet PO SCH (22:00)
[2019-04-05] MEDS: HYDROmorphone/NS 1 mg/ml CADD 50 ML IV SCH ×12 (01:00→23:00)
[2019-04-05 02:00] VITALS: BP 158/87
[2019-04-05] MEDS: metoprolol tartrate 1mg/ml inj IV SCH ×4 (02:05→20:59)
[2019-04-05] MEDS: normal saline 1000ml 1,000 ML IV SCH ×2 (02:29→17:04)
[2019-04-05 05:42] LABS: ALANINE AMINOTRANSFERASE 34 U/L (12-78); ALBUMIN 2.3 G/DL (3.4-5.0); ALBUMIN/GLOBULIN RATIO 0.6 (1.1-1.5); ALKALINE PHOSPHATASE 56 IU/L (46-116); ANION GAP 5 (8-16); ASPARTATE AMINO TRANSFERASE 25 U/L (10-37); BLOOD UREA NITROGEN 25 MG/DL (7-18); BUN/CREATININE RATIO 21.2 (5.4-32.0); CHLORIDE 107 MMOL/L (99-107); CREATININE 1.18 MG/DL (0.60-1.10); GLUCOSE 125 MG/DL (70-104); MAGNESIUM 1.7 MG/DL (1.5-2.4); POTASSIUM 3.9 MMOL/L (3.5-5.1); SODIUM 143 MMOL/L (135-145); TOTAL CARBON DIOXIDE 30.7 MMOL/L (24-32); TOTAL PROTEIN 5.9 G/DL (6.4-8.2); eGFR 64 ML/MIN
[2019-04-05 05:48] LABS: BASOPHILS % (AUTO) 0.1 % (0-1); EOSINOPHILS # (AUTO) 0.3 X10'3 (0-0.9); EOSINOPHILS % (AUTO) 3.7 % (0-6); HEMATOCRIT 26.3 % (42.0-52.0); HEMOGLOBIN 8.9 g/dl (14.0-17.9); LYMPHOCYTES # (AUTO) 0.6 X10'3 (1.1-4.8); LYMPHOCYTES % (AUTO) 9.1 % (21-51); MEAN CORPUSCULAR HEMOGLOBIN 30.3 PG (27.0-31.0); MEAN CORPUSCULAR HGB CONC 33.9 g/dL (33.0-36.5); MEAN CORPUSCULAR VOLUME 89.3 FL (78-98); MEAN PLATELET VOLUME 7.9 FL (7.4-10.4); MONOCYTES # (AUTO) 0.9 X10'3 (0-0.9); MONOCYTES % (AUTO) 13.2 % (2-12); NEUTROPHILS # (AUTO) 5.2 X10'3 (1.8-7.7); NEUTROPHILS % (AUTO) 73.9 % (42-75); PLATELET COUNT 358 X10'3 (140-440); RED BLOOD COUNT 2.95 X10'6 (4.70-6.10); RED CELL DISTRIBUTION WIDTH 15.2 % (11.5-14.5)
[2019-04-05 06:00] VITALS: BP 145/78
--- NOTE | 2019-04-05 06:28 | NUR ---
orienteer documentation: I have reviewed and agree with all interventions, assessments performed and documented by MARBELLA Coleman. Orienteer Medication Administration: For this medication-pass time frame, all medication were reviewed, dispensed, administered and documented per hospital policy by MARBELLA Coleman .
--- NOTE | 2019-04-05 06:34 | NUR ---
Problems reprioritized. Patient report given, questions answered & plan of care reviewed with MARBELLA Noyola.
[2019-04-05] MEDS: lactobacillus rhamnosus 10,000 MMU CELLS/CAPSULE PO SCH ×2 (08:00→19:47)
[2019-04-05] MEDS: duloxetine 30mg CAPSULE.DR PO SCH (08:00)
[2019-04-05] MEDS: ziprasidone 20mg capsule PO SCH ×2 (08:00→19:47)
[2019-04-05] MEDS: K and/or MAG REPLACEMENT MC SCH (08:00)
[2019-04-05] MEDS: atorvastatin 20mg tablet PO SCH (08:00)
[2019-04-05] MEDS: gabapentin 300mg capsule PO SCH ×3 (08:00→21:00)
[2019-04-05] MEDS ORDERED: metoprolol succinate 25mg (24-HOUR) SR. Tablet PO SCH (08:00)
[2019-04-05] MEDS: fenofibrate 145mg tablet PO SCH (08:30)
[2019-04-05] MEDS: metroNIDAZOLE-Flagyl 500mg/NS 100 ML IV SCH ×2 (08:40→16:41)
[2019-04-05] MEDS: ciprofloxacin/D5W 200mg/100mL 100 ML IV SCH ×2 (08:41→20:58)
[2019-04-05 08:59] LABS: PHOSPHORUS 3.6 MG/DL (2.3-4.5)
--- NOTE | 2019-04-05 09:20 | NUR ---
PAGER ID: [phone] MESSAGE: 315, Nitish Morton. radiologist called and said he was concerned with morning x-ray . Anastasia [phone]
[2019-04-05] MEDS: MVI, adult No.4 with vit. K 10 ML in normal saline 500ml IV soln 500 ML IV SCH ×2 (10:00)
[2019-04-05 11:00] VITALS: BP 128/79
[2019-04-05] MEDS: Trace element-5 inj. 0.5 ML in AA 5%/cal/electrolyte-TPN/D15W 1,000 ML IV SCH (13:49)
[2019-04-05 15:00] VITALS: BP 152/93
--- NOTE | 2019-04-05 17:56 | NUR ---
Orienteer documentation: I have reviewed and agree with all interventions, assessments performed and documented by Anastasia TYSON.
[2019-04-05 18:00] VITALS: BP 154/81
[2019-04-05] MEDS: fat emulsion IV bag 250 ML IV SCH (20:58)
[2019-04-05] MEDS: tamsulosin 0.4mg capsule PO SCH (21:00)
[2019-04-05 22:00] VITALS: BP 147/87
[2019-04-06] MEDS: metroNIDAZOLE-Flagyl 500mg/NS 100 ML IV SCH ×3 (00:39→16:34)
[2019-04-06] MEDS: HYDROmorphone/NS 1 mg/ml CADD 50 ML IV SCH ×12 (01:00→23:00)
[2019-04-06 02:00] VITALS: BP 137/79
[2019-04-06] MEDS: Trace element-5 inj. 0.5 ML in AA 5%/cal/electrolyte-TPN/D15W 1,000 ML IV SCH ×3 (02:35→20:10)
[2019-04-06] MEDS: normal saline 1000ml 1,000 ML IV SCH ×3 (02:55→22:55)
[2019-04-06] MEDS: metoprolol tartrate 1mg/ml inj IV SCH ×4 (03:09→20:05)
[2019-04-06 03:24] LABS: BASOPHILS % (AUTO) 0.4 % (0-1); EOSINOPHILS # (AUTO) 0.3 X10'3 (0-0.9); EOSINOPHILS % (AUTO) 3.3 % (0-6); HEMATOCRIT 23.4 % (42.0-52.0); HEMOGLOBIN 8.4 g/dl (14.0-17.9); LYMPHOCYTES # (AUTO) 0.6 X10'3 (1.1-4.8); LYMPHOCYTES % (AUTO) 7.2 % (21-51); MEAN CORPUSCULAR HEMOGLOBIN 32.5 PG (27.0-31.0); MEAN CORPUSCULAR HGB CONC 35.8 g/dL (33.0-36.5); MEAN CORPUSCULAR VOLUME 90.9 FL (78-98); MEAN PLATELET VOLUME 7.8 FL (7.4-10.4); MONOCYTES # (AUTO) 0.9 X10'3 (0-0.9); NEUTROPHILS # (AUTO) 6.4 X10'3 (1.8-7.7); NEUTROPHILS % (AUTO) 78.1 % (42-75); PLATELET COUNT 345 X10'3 (140-440); RED BLOOD COUNT 2.57 X10'6 (4.70-6.10); RED CELL DISTRIBUTION WIDTH 15.1 % (11.5-14.5); WHITE BLOOD COUNT 8.2 X10'3 (4.5-11.0)
[2019-04-06 03:35] LABS: ALBUMIN 1.9 G/DL (3.4-5.0); ALKALINE PHOSPHATASE 49 IU/L (46-116); ANION GAP 7 (8-16); BILIRUBIN,TOTAL 0.8 MG/DL (0.1-1.0); BLOOD UREA NITROGEN 19 MG/DL (7-18); BUN/CREATININE RATIO 21.6 (5.4-32.0); CALCIUM 7.3 MG/DL (8.5-10.1); CHLORIDE 109 MMOL/L (99-107); CREATININE 0.88 MG/DL (0.60-1.10); MAGNESIUM 1.3 MG/DL (1.5-2.4); PHOSPHORUS 3.3 MG/DL (2.3-4.5); PREALBUMIN 13.7 MG/DL (19-36); SODIUM 142 MMOL/L (135-145); TOTAL CARBON DIOXIDE 26.1 MMOL/L (24-32); TRIGLYCERIDES 605 MG/DL (20-135); eGFR 90 ML/MIN
[2019-04-06 03:51] LABS: ALANINE AMINOTRANSFERASE 34 U/L (12-78); ASPARTATE AMINO TRANSFERASE 20 U/L (10-37)
[2019-04-06 03:53] LABS: ALBUMIN/GLOBULIN RATIO 0.6 (1.1-1.5); GLUCOSE 126 MG/DL (70-104); POTASSIUM 3.3 MMOL/L (3.5-5.1)
[2019-04-06 06:00] VITALS: BP 146/84
--- NOTE | 2019-04-06 06:31 | NUR ---
Problems reprioritized. Patient report given, questions answered & plan of care reviewed with Art, RN.
[2019-04-06] MEDS: gabapentin 300mg capsule PO SCH ×3 (08:00→19:50)
[2019-04-06] MEDS: ziprasidone 20mg capsule PO SCH ×2 (08:00→19:50)
[2019-04-06] MEDS: duloxetine 30mg CAPSULE.DR PO SCH (08:00)
[2019-04-06] MEDS: atorvastatin 20mg tablet PO SCH (08:00)
[2019-04-06] MEDS: K and/or MAG REPLACEMENT MC SCH (08:00)
[2019-04-06] MEDS: lactobacillus rhamnosus 10,000 MMU CELLS/CAPSULE PO SCH ×2 (08:00→19:48)
[2019-04-06] MEDS: fenofibrate 145mg tablet PO SCH (08:30)
[2019-04-06] MEDS: ciprofloxacin/D5W 200mg/100mL 100 ML IV SCH ×2 (08:33→20:05)
[2019-04-06 11:00] VITALS: BP 149/81
[2019-04-06] MEDS: MVI, adult No.4 with vit. K 10 ML in normal saline 500ml IV soln 500 ML IV SCH ×2 (12:11)
--- NOTE | 2019-04-06 12:44 | NUR ---
Reassessment: Patient now receiving TPN at goal rate. Noted that K and mag now below normal limits not receiving replacement, d/w pharmacy. Patient with elevated TG of 605 however this is the first TG lab draw so unknown if serum TG has changed since initiation of TPN. Per FDA a minimum 8-10% of the caloric input should be supplied by intralipid 20% in order to provide adequate amounts of EFAs, recommend Clinimix-E 5/15 increase to 110 mL/hr with separate 84 mL intralipids 20% to run for 7 mL/hr to provide 16.8 g lipids (8% of total kcal). Recommendations d/w pharmacy. Per MD notes patient's SO brought in soda despite pt being NPO which resulted in pt vomiting all night. Pt to remain strict NPO at this time. Pt continue with NG tube for suctioning with decreasing output of 180 mL 04/05 per I&O. Patient's weight has changed +15.37 kg with no documented method of how new wt was obtained. Likely pt has not gained this much weight as he is NPO and with -11,789 mL fluid balance over the last 5 days. LBM 04/06. Will continue to follow. Rec: 1. Clinimix E 5/15 at 110ml/hr goal to run continuously for 24 hours to provide: 132 g AA and 396 g dextrose (2.24 mg/kg/min dext load) 2. Separate 84 mL 20% intralipid infusion to run Q12 hours daily at 7 mL/hr to provide 16.8 g lipids (8% total kcal from fat) 3. In total; to provide 2,724 mL volume/day, 1514.4 total non-protein kcals and 2042.4 total kcal. Initiate at 30ml/hr and if tolerated Q12 advance to goal. 4. electrolyte replacement PRN 5. advance diet per MD as medically indicated to heart healthy Addendum: 04/06/19 at [address] Amended: Links added.
[2019-04-06] MEDS ORDERED: magnesium 2GM in 50ml NS 50 ML IV PRN (12:50)
[2019-04-06] MEDS ORDERED: magnesium 4gm in 100ml NS 100 ML IV PRN (12:50)
[2019-04-06] MEDS ORDERED: potassium Cl 20 mEq SR tablet PO PRN ×2 (12:50)
[2019-04-06 15:00] VITALS: BP 141/78
[2019-04-06] MEDS: fat emulsion IV bag 250 ML IV SCH (16:34)
--- NOTE | 2019-04-06 17:53 | NUR ---
Orientee documentation: I have reviewed and agree with all interventions, assessments performed and documented by MARBELLA Harrison .
--- NOTE | 2019-04-06 18:10 | NUR ---
Patient in room MED 315. I have received report from Christy-RN and Art-RN and had the opportunity to ask questions and assume patient care.
--- NOTE | 2019-04-06 18:15 | NUR ---
Patient in room MED 315. I have received report from Christy RN (orienteer) and Mio RN and had the opportunity to ask questions and assume patient care. Noted that Lipids continued to run through day shift. Will keep off until tommorow night NOC shift since this ran for 24 hours. I spoke with pharmacist regarding this matter. He advised me to keep the Lipids off until the next time they are due.
--- NOTE | 2019-04-06 18:19 | NUR ---
Problems reprioritized. Patient report given, questions answered & plan of care reviewed with MARBELLA Bull.
--- NOTE | 2019-04-06 19:20 | NUR ---
CT-Patient Nitish Morton in room 315, scheduled for 0300. Looking at the [employer] orders for prep. Confusion about when to start the prep as unsure of actual time of CT scan. [phone]. MARBELLA BullE
--- NOTE | 2019-04-06 19:25 | NUR ---
Juliet from CT called back to let me know that she is unsure of the order as well and that she is going to contact Dr. Rivera and Dr. Claros to Clarify exactly what they are wanting with the order is. Dr. Claros came by with Juliet and clarified the order to start prep per usual: 2100, [address] before administering for the last time.
[2019-04-06] MEDS: tamsulosin 0.4mg capsule PO SCH (19:50)
[2019-04-06 21:59] VITALS: BP 136/65
[2019-04-06 22:00] VITALS: BP 137/75
[2019-04-06] MEDS: diatr meglu/diatrizoate 30ml oral sol.-(3 dose) bottle PO SCH (22:35)
[2019-04-06] MEDS: ipratropium/albuterol 3ml nebule NEB PRN (23:38)
[2019-04-07] MEDS: HYDROmorphone/NS 1 mg/ml CADD 50 ML IV SCH ×12 (01:00→23:00)
[2019-04-07] MEDS: metroNIDAZOLE-Flagyl 500mg/NS 100 ML IV SCH ×3 (01:13→15:26)
[2019-04-07] MEDS: metoprolol tartrate 1mg/ml inj IV SCH ×4 (01:14→19:47)
[2019-04-07 02:00] VITALS: BP 136/76
[2019-04-07] MEDS: potassium CL 10mEq/100ml bag 100 ML IV PRN ×2 (02:44→04:32)
[2019-04-07] MEDS: Trace element-5 inj. 0.5 ML in AA 5%/cal/electrolyte-TPN/D15W 1,000 ML IV SCH ×3 (05:10→21:44)
--- NOTE | 2019-04-07 05:30 | NUR ---
Orienteer documentation: I have reviewed and agree with all interventions, assessments performed and documented by MARBELLA Sun. Orienteer Medication Administration: For this medication-pass time frame, all medication were reviewed, dispensed, administered and documented per hospital policy by MARBELLA Sun.
[2019-04-07 06:00] VITALS: BP 150/85
--- NOTE | 2019-04-07 06:00 | NUR ---
Patient in room MED 315. I have received report from Ml and had the opportunity to ask questions and assume patient care. Addendum: 04/07/19 at 0952 by José Marquez RN CADD settings assessment were not completed for 0500 in [facility]
--- NOTE | 2019-04-07 06:32 | NUR ---
Problems reprioritized. Patient report given, questions answered & plan of care reviewed with MARBELLA Meza.
[2019-04-07] MEDS: diatr meglu/diatrizoate 30ml oral sol.-(3 dose) bottle PO SCH ×2 (07:11→10:31)
[2019-04-07] MEDS: ciprofloxacin/D5W 200mg/100mL 100 ML IV SCH ×2 (07:12→19:47)
[2019-04-07] MEDS: lactobacillus rhamnosus 10,000 MMU CELLS/CAPSULE PO SCH ×2 (07:12→20:00)
[2019-04-07] MEDS: ziprasidone 20mg capsule PO SCH ×2 (07:13→20:00)
[2019-04-07] MEDS: atorvastatin 20mg tablet PO SCH (07:13)
[2019-04-07] MEDS: gabapentin 300mg capsule PO SCH ×3 (07:13→21:00)
[2019-04-07] MEDS: duloxetine 30mg CAPSULE.DR PO SCH (07:13)
[2019-04-07 07:21] LABS: MAGNESIUM 2.3 MG/DL (1.5-2.4); PHOSPHORUS 4.3 MG/DL (2.3-4.5); PREALBUMIN 16.5 MG/DL (19-36)
[2019-04-07] MEDS: K and/or MAG REPLACEMENT MC SCH (08:00)
[2019-04-07] MEDS: fenofibrate 145mg tablet PO SCH (08:30)
[2019-04-07] MEDS: normal saline 1000ml 1,000 ML IV SCH ×2 (08:55→14:01)
[2019-04-07 10:39] LABS: BASOPHILS % (AUTO) 0.2 % (0-1); EOSINOPHILS # (AUTO) 0.3 X10'3 (0-0.9); EOSINOPHILS % (AUTO) 2.7 % (0-6); HEMATOCRIT 27.1 % (42.0-52.0); HEMOGLOBIN 9.2 g/dl (14.0-17.9); LYMPHOCYTES # (AUTO) 0.7 X10'3 (1.1-4.8); MEAN CORPUSCULAR HGB CONC 33.8 g/dL (33.0-36.5); MEAN CORPUSCULAR VOLUME 88.7 FL (78-98); MEAN PLATELET VOLUME 7.5 FL (7.4-10.4); MONOCYTES % (AUTO) 8.7 % (2-12); NEUTROPHILS # (AUTO) 9.2 X10'3 (1.8-7.7); NEUTROPHILS % (AUTO) 82.4 % (42-75); PLATELET COUNT 390 X10'3 (140-440); RED BLOOD COUNT 3.05 X10'6 (4.70-6.10); RED CELL DISTRIBUTION WIDTH 14.9 % (11.5-14.5); WHITE BLOOD COUNT 11.2 X10'3 (4.5-11.0)
[2019-04-07 10:43] LABS: ALANINE AMINOTRANSFERASE 44 U/L (12-78); ALBUMIN 2.1 G/DL (3.4-5.0); ALBUMIN/GLOBULIN RATIO 0.6 (1.1-1.5); ALKALINE PHOSPHATASE 59 IU/L (46-116); ANION GAP 6 (8-16); ASPARTATE AMINO TRANSFERASE 28 U/L (10-37); BILIRUBIN,TOTAL 0.6 MG/DL (0.1-1.0); BLOOD UREA NITROGEN 17 MG/DL (7-18); BUN/CREATININE RATIO 20.5 (5.4-32.0); CALCIUM 8.5 MG/DL (8.5-10.1); CHLORIDE 104 MMOL/L (99-107); CREATININE 0.83 MG/DL (0.60-1.10); GLUCOSE 119 MG/DL (70-104); POTASSIUM 3.8 MMOL/L (3.5-5.1); SODIUM 138 MMOL/L (135-145); TOTAL PROTEIN 5.7 G/DL (6.4-8.2); eGFR > 90 ML/MIN
[2019-04-07 10:52] LABS: PARTIAL THROMBOPLASTIN TIME 28 SECONDS (22-32)
[2019-04-07 11:00] VITALS: BP 135/80
[2019-04-07] MEDS: MVI, adult No.4 with vit. K 10 ML in normal saline 500ml IV soln 500 ML IV SCH ×2 (11:58)
[2019-04-07 15:00] VITALS: BP 149/83
[2019-04-07] MEDS: methylnaltrexone br 12mg/0.6ml inj***SubQ only SQ SCH (15:29)
--- NOTE | 2019-04-07 18:10 | NUR ---
Problems reprioritized. Patient report given, questions answered & plan of care reviewed with Naeem TYSON.
[2019-04-07 19:00] VITALS: BP 134/74
[2019-04-07] MEDS: fat emulsion IV bag 250 ML IV SCH (19:47)
[2019-04-07] MEDS: tamsulosin 0.4mg capsule PO SCH (21:00)
[2019-04-07 23:00] VITALS: BP 148/92
[2019-04-08] VITALS (7 sets, daily range): BP systolic 98–147; BP diastolic 50–75
[2019-04-08] MEDS: metroNIDAZOLE-Flagyl 500mg/NS 100 ML IV SCH ×3 (00:17→16:25)
[2019-04-08] MEDS: normal saline 1000ml 1,000 ML IV SCH ×2 (00:59→16:26)
[2019-04-08] MEDS: HYDROmorphone/NS 1 mg/ml CADD 50 ML IV SCH ×12 (01:00→23:00)
[2019-04-08] MEDS: metoprolol tartrate 1mg/ml inj IV SCH ×4 (02:26→20:06)
[2019-04-08 03:09] LABS: ALANINE AMINOTRANSFERASE 46 U/L (12-78); ALBUMIN/GLOBULIN RATIO 0.6 (1.1-1.5); ALKALINE PHOSPHATASE 63 IU/L (46-116); ANION GAP 7 (8-16); ASPARTATE AMINO TRANSFERASE 29 U/L (10-37); BILIRUBIN,TOTAL 0.8 MG/DL (0.1-1.0); BLOOD UREA NITROGEN 19 MG/DL (7-18); BUN/CREATININE RATIO 21.6 (5.4-32.0); CALCIUM 8.4 MG/DL (8.5-10.1); CHLORIDE 103 MMOL/L (99-107); CREATININE 0.88 MG/DL (0.60-1.10); MAGNESIUM 1.5 MG/DL (1.5-2.4); PHOSPHORUS 3.2 MG/DL (2.3-4.5); POTASSIUM 3.8 MMOL/L (3.5-5.1); SODIUM 136 MMOL/L (135-145); TOTAL CARBON DIOXIDE 25.8 MMOL/L (24-32); TOTAL PROTEIN 5.4 G/DL (6.4-8.2); eGFR 90 ML/MIN
[2019-04-08 03:17] LABS: GLUCOSE 130 MG/DL (70-104)
[2019-04-08 03:47] LABS: BASOPHILS % (AUTO) 0.2 % (0-1); EOSINOPHILS # (AUTO) 0.4 X10'3 (0-0.9); HEMATOCRIT 26.2 % (42.0-52.0); HEMOGLOBIN 8.7 g/dl (14.0-17.9); LYMPHOCYTES # (AUTO) 0.8 X10'3 (1.1-4.8); LYMPHOCYTES % (AUTO) 5.6 % (21-51); MEAN CORPUSCULAR HEMOGLOBIN 29.7 PG (27.0-31.0); MEAN CORPUSCULAR HGB CONC 33.2 g/dL (33.0-36.5); MEAN CORPUSCULAR VOLUME 89.4 FL (78-98); MEAN PLATELET VOLUME 7.2 FL (7.4-10.4); MONOCYTES # (AUTO) 1.2 X10'3 (0-0.9); MONOCYTES % (AUTO) 8.3 % (2-12); NEUTROPHILS # (AUTO) 11.8 X10'3 (1.8-7.7); NEUTROPHILS % (AUTO) 82.9 % (42-75); PLATELET COUNT 360 X10'3 (140-440); RED BLOOD COUNT 2.93 X10'6 (4.70-6.10); WHITE BLOOD COUNT 14.2 X10'3 (4.5-11.0)
[2019-04-08] MEDS: Trace element-5 inj. 0.5 ML in AA 5%/cal/electrolyte-TPN/D15W 1,000 ML IV SCH (05:26)
--- NOTE | 2019-04-08 06:05 | NUR ---
Patient in room MED 315. I have received report from LISSETT TYSON and had the opportunity to ask questions and assume patient care.
[2019-04-08] MEDS: ziprasidone 20mg capsule PO SCH ×2 (08:00→20:07)
[2019-04-08] MEDS: K and/or MAG REPLACEMENT MC SCH (08:00)
[2019-04-08] MEDS: ciprofloxacin/D5W 200mg/100mL 100 ML IV SCH ×2 (09:27→20:06)
[2019-04-08] MEDS: atorvastatin 20mg tablet PO SCH (09:28)
[2019-04-08] MEDS: lactobacillus rhamnosus 10,000 MMU CELLS/CAPSULE PO SCH ×2 (09:28→20:07)
[2019-04-08] MEDS: baclofen 10mg tablet PO PRN (09:28)
[2019-04-08] MEDS: fenofibrate 145mg tablet PO SCH (09:29)
[2019-04-08] MEDS: duloxetine 30mg CAPSULE.DR PO SCH (09:29)
[2019-04-08] MEDS: gabapentin 300mg capsule PO SCH ×3 (09:29→20:36)
[2019-04-08] MEDS: MVI, adult No.4 with vit. K 10 ML in normal saline 500ml IV soln 500 ML IV SCH ×2 (10:29)
--- NOTE | 2019-04-08 11:15 | NUR ---
Dr. Rivera at bedside, gave the okay for sips of water while maintaining NG at low intermittent suction.
[2019-04-08] MEDS: ipratropium/albuterol 3ml nebule NEB PRN (11:21)
--- NOTE | 2019-04-08 12:41 | NUR ---
Reassessment: Pt receiving TPN at adjusted goal rate with no s/s refeeding syndrome, electrolytes and TG now WNL. Bed scaled weights stable. Pt s/p CT with findings of multiple distended loops of small bowel consistent with SBO, now with routine Relistor per MD notes. CT report indicates diverticulosis without any finding of diverticulitis. LBM 8 documented as small however with large BM 04/07. Pt continues with NG tube for suctioning 59 mL output 04/07. Will continue to follow. Reassessment: Patient now receiving TPN at goal rate. Noted that K and mag now below normal limits not receiving replacement, d/w pharmacy. Patient with elevated TG of 605 however this is the first TG lab draw so unknown if serum TG has changed since initiation of TPN. Per FDA a minimum 8-10% of the caloric input should be supplied by intralipid 20% in order to provide adequate amounts of EFAs, recommend Clinimix-E 5/15 increase to 110 mL/hr with separate 84 mL intralipids 20% to run for 7 mL/hr to provide 16.8 g lipids (8% of total kcal). Recommendations d/w pharmacy. Per MD notes patient's SO brought in soda despite pt being NPO which resulted in pt vomiting all night. Pt to remain strict NPO at this time. Pt continue with NG tube for suctioning with decreasing output of 180 mL 04/05 per I&O. Patient's weight has changed +15.37 kg with no documented method of how new wt was obtained. Likely pt has not gained this much weight as he is NPO and with -11,789 mL fluid balance over the last 5 days. LBM 8. Will continue to follow. Rec: 1. Clinimix E 5/15 at 110ml/hr goal to run continuously for 24 hours to provide: 132 g AA and 396 g dextrose (2.24 mg/kg/min dext load) 2. Separate 84 mL 20% intralipid infusion to run Q12 hours daily at 7 mL/hr to provide 16.8 g lipids (8% total kcal from fat) 3. In total; to provide 2,724 mL volume/day, 1514.4 total non-protein kcals and 2042.4 total kcal. Initiate at 30ml/hr and if tolerated Q12 advance to goal. 4. electrolyte replacement PRN 5. advance diet per MD as medically indicated to heart healthy Addendum: 04/08/19 at [address] Amended: Links added.
[2019-04-08] MEDS: Trace element-5 inj. 1 ML in AA 5%/cal/electrolyte-TPN/D15W 2,000 ML IV SCH (14:28)
[2019-04-08] MEDS ORDERED: Trace element-5 inj. 1 ML in AA 5%/cal/electrolyte-TPN/D15W 2,000 ML IV SCH (15:00)
--- NOTE | 2019-04-08 18:00 | NUR ---
Patient in room MED 315. I have received report from NILO TYSON and had the opportunity to ask questions and assume patient care.
--- NOTE | 2019-04-08 18:00 | NUR ---
Patient in room MED 315. I have received report from NILO TYSON and had the opportunity to ask questions and assume patient care.
--- NOTE | 2019-04-08 18:11 | NUR ---
Problems reprioritized. Patient report given, questions answered & plan of care reviewed with Naeem TYSON.
[2019-04-08] MEDS: fat emulsion IV bag 120 ML IV SCH (20:04)
[2019-04-08] MEDS: tamsulosin 0.4mg capsule PO SCH (20:36)
[2019-04-09] MEDS: metroNIDAZOLE-Flagyl 500mg/NS 100 ML IV SCH ×3 (00:21→16:51)
[2019-04-09] MEDS: HYDROmorphone/NS 1 mg/ml CADD 50 ML IV SCH ×9 (01:00→16:51)
[2019-04-09] MEDS: metoprolol tartrate 1mg/ml inj IV SCH ×4 (02:06→21:07)
[2019-04-09] MEDS: normal saline 1000ml 1,000 ML IV SCH ×3 (02:32→21:36)
[2019-04-09 03:00] VITALS: BP 131/63
[2019-04-09 04:06] LABS: BASOPHILS % (AUTO) 0.3 % (0-1); EOSINOPHILS # (AUTO) 0.3 X10'3 (0-0.9); EOSINOPHILS % (AUTO) 2.3 % (0-6); HEMOGLOBIN 7.9 g/dl (14.0-17.9); LYMPHOCYTES # (AUTO) 0.9 X10'3 (1.1-4.8); LYMPHOCYTES % (AUTO) 5.9 % (21-51); MEAN CORPUSCULAR HEMOGLOBIN 29.4 PG (27.0-31.0); MEAN CORPUSCULAR HGB CONC 32.8 g/dL (33.0-36.5); MEAN CORPUSCULAR VOLUME 89.7 FL (78-98); MEAN PLATELET VOLUME 7.7 FL (7.4-10.4); MONOCYTES # (AUTO) 1.4 X10'3 (0-0.9); MONOCYTES % (AUTO) 9.3 % (2-12); NEUTROPHILS # (AUTO) 12.2 X10'3 (1.8-7.7); NEUTROPHILS % (AUTO) 82.2 % (42-75); PLATELET COUNT 370 X10'3 (140-440); RED BLOOD COUNT 2.67 X10'6 (4.70-6.10); RED CELL DISTRIBUTION WIDTH 14.9 % (11.5-14.5); WHITE BLOOD COUNT 14.8 X10'3 (4.5-11.0)
[2019-04-09 04:20] LABS: ALANINE AMINOTRANSFERASE 43 U/L (12-78); ALBUMIN 2.2 G/DL (3.4-5.0); ALBUMIN/GLOBULIN RATIO 0.6 (1.1-1.5); ALKALINE PHOSPHATASE 66 IU/L (46-116); ANION GAP 9 (8-16); ASPARTATE AMINO TRANSFERASE 26 U/L (10-37); BILIRUBIN,TOTAL 0.8 MG/DL (0.1-1.0); BLOOD UREA NITROGEN 17 MG/DL (7-18); BUN/CREATININE RATIO 18.3 (5.4-32.0); CALCIUM 8.4 MG/DL (8.5-10.1); CHLORIDE 105 MMOL/L (99-107); CREATININE 0.93 MG/DL (0.60-1.10); GLUCOSE 123 MG/DL (70-104); POTASSIUM 3.9 MMOL/L (3.5-5.1); SODIUM 139 MMOL/L (135-145); TOTAL CARBON DIOXIDE 24.7 MMOL/L (24-32); TOTAL PROTEIN 5.8 G/DL (6.4-8.2); eGFR 84 ML/MIN
[2019-04-09 06:00] VITALS: BP 145/68
[2019-04-09] MEDS: K and/or MAG REPLACEMENT MC SCH (06:59)
[2019-04-09] MEDS: ciprofloxacin/D5W 200mg/100mL 100 ML IV SCH ×2 (07:44→21:09)
[2019-04-09] MEDS: lactobacillus rhamnosus 10,000 MMU CELLS/CAPSULE PO SCH ×3 (07:45→21:10)
[2019-04-09] MEDS: fenofibrate 145mg tablet PO SCH (07:45)
[2019-04-09] MEDS: duloxetine 30mg CAPSULE.DR PO SCH (07:45)
[2019-04-09] MEDS: gabapentin 300mg capsule PO SCH ×3 (07:45→21:08)
[2019-04-09] MEDS: methylnaltrexone br 12mg/0.6ml inj***SubQ only SQ SCH (07:45)
[2019-04-09] MEDS: atorvastatin 20mg tablet PO SCH (07:45)
[2019-04-09] MEDS: ziprasidone 20mg capsule PO SCH ×2 (07:46→21:09)
--- NOTE | 2019-04-09 08:47 | NUR ---
radiology paged 315: NAVEED - 2 view abd xray ordered. patient able to get into wc. let us know when you're ready for him. ty
[2019-04-09] MEDS: MVI, adult No.4 with vit. K 10 ML in normal saline 500ml IV soln 500 ML IV SCH ×2 (10:21)
[2019-04-09 10:33] VITALS: BP 133/73
[2019-04-09] MEDS: Trace element-5 inj. 1 ML in AA 5%/cal/electrolyte-TPN/D15W 2,000 ML IV SCH (11:01)
--- NOTE | 2019-04-09 12:24 | NUR ---
Contacted Dr. Rivera to make aware of small-moderate serosanguineous drainage from lower abdominal incision, placed ABD pad and paper tape, will change when saturated PRN to keep dressing clean and dry. Also gave orders to rotate clamping NG tube for [address] to low intermittent suction for 1 hour and measure output for the 1 hour open, rotate doing this until further notice.
[2019-04-09 15:00] VITALS: BP 144/76
[2019-04-09] MEDS ORDERED: HYDROmorphone inj. 0.5 MG/0.5 ML DISP.SYRIN IV PRN (17:35)
--- NOTE | 2019-04-09 18:32 | NUR ---
Patient in room MED 315. I have received report from Sierra TYSON and had the opportunity to ask questions and assume patient care.
--- NOTE | 2019-04-09 18:50 | NUR ---
Dr Rivera at bedside. pt dressing saturated with serosanguineous drainage. Some [place] removed. Surgical wound packed with iodoform gauze, covered with 4X4, and ABD pad. Culture obtained and sent to lab. Will continue to monitor.
[2019-04-09 19:00] VITALS: BP 149/75
[2019-04-09] MEDS: fat emulsion IV bag 120 ML IV SCH (20:00)
[2019-04-09] MEDS: tamsulosin 0.4mg capsule PO SCH (21:09)
[2019-04-09 23:00] VITALS: BP 123/66
[2019-04-10] MEDS: metoprolol tartrate 1mg/ml inj IV SCH (01:17)
[2019-04-10] MEDS: metroNIDAZOLE-Flagyl 500mg/NS 100 ML IV SCH ×4 (01:18→23:48)
[2019-04-10] MEDS: normal saline 1000ml 1,000 ML IV SCH ×2 (01:20→17:19)
[2019-04-10 03:00] VITALS: BP 135/70
--- NOTE | 2019-04-10 03:21 | NUR ---
Pt NG tube came out approximately 3 cm. Pushed back in place. Will confirm placement in the morning KUB
[2019-04-10 06:00] VITALS: BP 126/73
--- NOTE | 2019-04-10 06:28 | NUR ---
Problems reprioritized. Patient report given, questions answered & plan of care reviewed with Dennys TYSON.
--- NOTE | 2019-04-10 06:34 | NUR ---
Patient in room MED 315. I have received report from MARBELLA Iqbal and had the opportunity to ask questions and assume patient care.
[2019-04-10 07:12] LABS: BASOPHILS % (AUTO) 0.2 % (0-1); EOSINOPHILS # (AUTO) 0.3 X10'3 (0-0.9); EOSINOPHILS % (AUTO) 2.7 % (0-6); HEMATOCRIT 24.6 % (42.0-52.0); HEMOGLOBIN 8.3 g/dl (14.0-17.9); LYMPHOCYTES % (AUTO) 8.3 % (21-51); MEAN CORPUSCULAR HEMOGLOBIN 29.8 PG (27.0-31.0); MEAN CORPUSCULAR HGB CONC 33.7 g/dL (33.0-36.5); MEAN CORPUSCULAR VOLUME 88.3 FL (78-98); MEAN PLATELET VOLUME 7.7 FL (7.4-10.4); MONOCYTES # (AUTO) 1.2 X10'3 (0-0.9); MONOCYTES % (AUTO) 10.1 % (2-12); NEUTROPHILS % (AUTO) 78.7 % (42-75); PLATELET COUNT 347 X10'3 (140-440); RED BLOOD COUNT 2.78 X10'6 (4.70-6.10); RED CELL DISTRIBUTION WIDTH 14.9 % (11.5-14.5); WHITE BLOOD COUNT 11.5 X10'3 (4.5-11.0)
--- NOTE | 2019-04-10 07:16 | NUR ---
PAGED DR. CABA FOR [facility] "RE: ZA LUCIO IN 315. CAN WE CHANGE IV LOPRESSOR TO PO? ALSO WOULD LIKE [facility] ORDERS FOR THIS PATIENT, HE IS NOT CARDIAC. THANK YOU, NICOLE MOLINA [phone]"
[2019-04-10 07:25] LABS: ALANINE AMINOTRANSFERASE 40 U/L (12-78); ALBUMIN 2.2 G/DL (3.4-5.0); ALBUMIN/GLOBULIN RATIO 0.6 (1.1-1.5); ALKALINE PHOSPHATASE 76 IU/L (46-116); ANION GAP 10 (8-16); ASPARTATE AMINO TRANSFERASE 19 U/L (10-37); BILIRUBIN,TOTAL 0.6 MG/DL (0.1-1.0); BLOOD UREA NITROGEN 16 MG/DL (7-18); CALCIUM 8.4 MG/DL (8.5-10.1); CHLORIDE 107 MMOL/L (99-107); GLUCOSE 133 MG/DL (70-104); PHOSPHORUS 3.9 MG/DL (2.3-4.5); SODIUM 143 MMOL/L (135-145); TOTAL CARBON DIOXIDE 26.4 MMOL/L (24-32); TOTAL PROTEIN 5.7 G/DL (6.4-8.2); eGFR 78 ML/MIN
[2019-04-10] MEDS: K and/or MAG REPLACEMENT MC SCH (08:00)
[2019-04-10] MEDS: Trace element-5 inj. 1 ML in AA 5%/cal/electrolyte-TPN/D15W 2,000 ML IV SCH (08:24)
[2019-04-10] MEDS: ziprasidone 20mg capsule PO SCH ×2 (08:51→22:09)
[2019-04-10] MEDS: fenofibrate 145mg tablet PO SCH (08:51)
[2019-04-10] MEDS: gabapentin 300mg capsule PO SCH ×3 (08:51→22:09)
[2019-04-10] MEDS: duloxetine 30mg CAPSULE.DR PO SCH (08:52)
[2019-04-10] MEDS: ciprofloxacin/D5W 200mg/100mL 100 ML IV SCH ×2 (08:53→20:13)
[2019-04-10] MEDS: atorvastatin 20mg tablet PO SCH (08:53)
[2019-04-10] MEDS: metoprolol succinate 25mg (24-HOUR) SR. Tablet PO SCH (10:50)
[2019-04-10] MEDS: MVI, adult No.4 with vit. K 10 ML in normal saline 500ml IV soln 500 ML IV SCH ×2 (10:50)
[2019-04-10 11:00] VITALS: BP 136/79
[2019-04-10 15:00] VITALS: BP 136/60
--- NOTE | 2019-04-10 16:02 | NUR ---
Tried to call and get report RN getting Tele for patient will call me back ( per Yanni)
--- NOTE | 2019-04-10 16:18 | NUR ---
Patient in room MED 315. I have received report from Dennys TYSON and had the opportunity to ask questions Leonard RN will assume patient care when patient comes to the floor/
--- NOTE | 2019-04-10 16:30 | NUR ---
Patient in room RAO 349. I have received report from KESHIA TYSON and had the opportunity to ask questions and assume patient care.
--- NOTE | 2019-04-10 16:45 | NUR ---
PATIENT ARRIVED TO FLOOR AND WAS SETTLED INTO ROOM AT THIS TIME. PATIENT SAT IN BEDSIDE CHAIR AT THIS TIME. PATIENT STATED HE WAS DOING WELL AND DIDN'T NEED ANY ADDITIONAL ITEMS AT THIS TIME.
--- NOTE | 2019-04-10 17:15 | NUR ---
Orienteer documentation: I have reviewed and agree with all interventions, assessments performed and documented by Anastasia TYSON.
--- NOTE | 2019-04-10 18:30 | NUR ---
Problems reprioritized. Patient report given, questions answered & plan of care reviewed with ABRAHAM TYSON.
[2019-04-10 20:00] VITALS: BP 123/64
--- NOTE | 2019-04-10 20:10 | NUR ---
24hr urine collection started tonight @1999. Will END 04/11 @1999. Patient educated about informing nursing staff every time he voids, And states understanding that we are saving all his urine.
[2019-04-10] MEDS: fat emulsion IV bag 120 ML IV SCH (20:28)
[2019-04-10] MEDS: tamsulosin 0.4mg capsule PO SCH (22:09)
[2019-04-10] MEDS: lactobacillus rhamnosus 10,000 MMU CELLS/CAPSULE PO SCH (22:09)
[2019-04-11] VITALS: BP 131/68
[2019-04-11] MEDS: benzocaine/menthol oral lozeng 1 EACH BOX MM PRN ×2 (02:33→18:21)
[2019-04-11] MEDS: HYDROmorphone 1 mg/ml syringe IV PRN (02:41)
[2019-04-11] MEDS: baclofen 10mg tablet PO PRN (02:41)
[2019-04-11] MEDS: normal saline 1000ml 1,000 ML IV SCH (04:19)
[2019-04-11] MEDS: Trace element-5 inj. 1 ML in AA 5%/cal/electrolyte-TPN/D15W 2,000 ML IV SCH ×2 (04:19→23:06)
--- NOTE | 2019-04-11 05:00 | NUR ---
Abd dressing changed this morning. Drainage leaked out to some of his gown. Surgical site has alexis in place and packing noted. RILEY noted to bilateral sides. Patient is passing gas and has good bowel sounds. Last BM was light night, 04/10. TPN going at goal 100ml/hr. Lipids infusing at 10ml/hr. Will report off to nurse to take down at 0800 this morning. N/S TKO @20ml/hr. Will continue with care.
[2019-04-11 05:41] LABS: ALANINE AMINOTRANSFERASE 35 U/L (12-78); ALBUMIN 2.1 G/DL (3.4-5.0); ALBUMIN/GLOBULIN RATIO 0.6 (1.1-1.5); ALKALINE PHOSPHATASE 65 IU/L (46-116); ANION GAP 7 (8-16); ASPARTATE AMINO TRANSFERASE 18 U/L (10-37); BILIRUBIN,TOTAL 0.5 MG/DL (0.1-1.0); BLOOD UREA NITROGEN 16 MG/DL (7-18); BUN/CREATININE RATIO 15.1 (5.4-32.0); CALCIUM 8.1 MG/DL (8.5-10.1); CHLORIDE 108 MMOL/L (99-107); CREATININE 1.06 MG/DL (0.60-1.10); GLUCOSE 145 MG/DL (70-104); MAGNESIUM 1.5 MG/DL (1.5-2.4); PREALBUMIN 15.8 MG/DL (19-36); SODIUM 142 MMOL/L (135-145); TOTAL CARBON DIOXIDE 26.7 MMOL/L (24-32); TOTAL PROTEIN 5.6 G/DL (6.4-8.2); TRIGLYCERIDES 152 MG/DL (20-135); eGFR 73 ML/MIN
--- NOTE | 2019-04-11 06:36 | NUR ---
Problems reprioritized. Patient report given, questions answered & plan of care reviewed with Maryellen TYSON.
--- NOTE | 2019-04-11 06:37 | NUR ---
Patient in room RAO 349. I have received report from MARBELLA Temple and had the opportunity to ask questions and assume patient care.
[2019-04-11 07:00] VITALS: BP 133/86
[2019-04-11] MEDS: K and/or MAG REPLACEMENT MC SCH (07:48)
[2019-04-11] MEDS: ciprofloxacin/D5W 200mg/100mL 100 ML IV SCH ×2 (08:02→20:09)
[2019-04-11] MEDS: metroNIDAZOLE-Flagyl 500mg/NS 100 ML IV SCH ×3 (08:43→23:59)
[2019-04-11] MEDS: gabapentin 300mg capsule PO SCH ×3 (08:44→21:01)
[2019-04-11] MEDS: fenofibrate 145mg tablet PO SCH (08:44)
[2019-04-11] MEDS: metoprolol succinate 25mg (24-HOUR) SR. Tablet PO SCH (08:44)
[2019-04-11] MEDS: lactobacillus rhamnosus 10,000 MMU CELLS/CAPSULE PO SCH ×2 (08:44→20:10)
[2019-04-11] MEDS: duloxetine 30mg CAPSULE.DR PO SCH (08:44)
[2019-04-11] MEDS: atorvastatin 20mg tablet PO SCH (08:44)
[2019-04-11] MEDS: ziprasidone 20mg capsule PO SCH ×2 (08:44→20:10)
[2019-04-11] MEDS: methylnaltrexone br 12mg/0.6ml inj***SubQ only SQ SCH (08:45)
[2019-04-11] MEDS: MVI, adult No.4 with vit. K 10 ML in normal saline 500ml IV soln 500 ML IV SCH ×2 (10:16)
[2019-04-11 11:00] VITALS: BP 130/70
--- NOTE | 2019-04-11 11:18 | NUR ---
Patient to ER X-Ray via wheelchair and taken from unit with x1 RN. Patient TPN is still running and RN went with him to monitor. Tele chambers notified.
[2019-04-11 11:28] LABS: BASOPHILS % (AUTO) 0.3 % (0-1); EOSINOPHILS # (AUTO) 0.3 X10'3 (0-0.9); EOSINOPHILS % (AUTO) 2.5 % (0-6); HEMATOCRIT 25.6 % (42.0-52.0); HEMOGLOBIN 8.6 g/dl (14.0-17.9); LYMPHOCYTES % (AUTO) 7.3 % (21-51); MEAN CORPUSCULAR HEMOGLOBIN 29.7 PG (27.0-31.0); MEAN CORPUSCULAR HGB CONC 33.5 g/dL (33.0-36.5); MEAN CORPUSCULAR VOLUME 88.6 FL (78-98); MEAN PLATELET VOLUME 7.4 FL (7.4-10.4); MONOCYTES # (AUTO) 1.2 X10'3 (0-0.9); MONOCYTES % (AUTO) 9.4 % (2-12); NEUTROPHILS # (AUTO) 10.5 X10'3 (1.8-7.7); NEUTROPHILS % (AUTO) 80.5 % (42-75); PLATELET COUNT 375 X10'3 (140-440); RED BLOOD COUNT 2.89 X10'6 (4.70-6.10); RED CELL DISTRIBUTION WIDTH 14.8 % (11.5-14.5); WHITE BLOOD COUNT 13.1 X10'3 (4.5-11.0)
[2019-04-11 14:01] LABS: TOTAL CELLS COUNTED 100
[2019-04-11 14:03] LABS: HYPOCHROMASIA 1+; PLATELET ESTIMATE NORMAL; POLYCHROMASIA 1+
--- NOTE | 2019-04-11 16:27 | NUR ---
Reassessment: Pt noted to have copious BMs x5 past 24 hours receiving relistor. PO 100% clear liquid diet in addition to tolerating TPN at goal. TPN decreased to 100ml/hr w/ no lipid changes past [address] recs. RD d/w pharmacy now returned to 110ml/hr w/ new lipid adjustments meeting needs. Abdomen x-ray shows potential for resolving ileus. IF fully functional gut in addition to pt tolerating PO meals then TPN no longer indicated at this time. Will monitor for further GI results and new MD recs. Rec: 1. Clinimix E 01/12 at 110ml/hr goal to run continuously for 24 hours to provide: 132 g AA and 396 g dextrose (2.24 mg/kg/min dext load) 2. Separate 84 mL 20% intralipid infusion to run Q12 hours daily at 7 mL/hr to provide 16.8 g lipids (8% total kcal from fat) 3. In total; to provide 2,724 mL volume/day, 1514.4 total non-protein kcals and 2042.4 total kcal. Initiate at 30ml/hr and if tolerated Q12 advance to goal. 4. advance diet per MD to heart healthy 5. routine bowel care Addendum: 04/11/19 at [address]28 [address] Amended: Links added.
--- NOTE | 2019-04-11 18:15 | NUR ---
Problems reprioritized. Patient report given, questions answered & plan of care reviewed with MARBELLA Lopez.
[2019-04-11 18:30] VITALS: BP 130/66
[2019-04-11] MEDS: FAT EMULSION IV SCH (20:10)
[2019-04-11] MEDS: tamsulosin 0.4mg capsule PO SCH (21:01)
[2019-04-11] MEDS: HYDROcodone/acetaminophen 5mg/325mg tablet PO PRN (21:43)
[2019-04-11 21:56] LABS: UREA NITROGEN 24HR,URINE 15.8 GM/24HR (7-20)
[2019-04-12] VITALS: BP 128/87
[2019-04-12 03:40] LABS: BASOPHILS % (AUTO) 0.2 % (0-1); EOSINOPHILS # (AUTO) 0.3 X10'3 (0-0.9); EOSINOPHILS % (AUTO) 2.9 % (0-6); HEMATOCRIT 22.9 % (42.0-52.0); HEMOGLOBIN 7.6 g/dl (14.0-17.9); LYMPHOCYTES # (AUTO) 0.9 X10'3 (1.1-4.8); MEAN CORPUSCULAR HEMOGLOBIN 29.6 PG (27.0-31.0); MEAN CORPUSCULAR HGB CONC 33.1 g/dL (33.0-36.5); MEAN CORPUSCULAR VOLUME 89.5 FL (78-98); MEAN PLATELET VOLUME 7.4 FL (7.4-10.4); MONOCYTES # (AUTO) 1.1 X10'3 (0-0.9); MONOCYTES % (AUTO) 9.6 % (2-12); NEUTROPHILS % (AUTO) 79.3 % (42-75); PLATELET COUNT 353 X10'3 (140-440); RED BLOOD COUNT 2.56 X10'6 (4.70-6.10); RED CELL DISTRIBUTION WIDTH 14.7 % (11.5-14.5); WHITE BLOOD COUNT 11.3 X10'3 (4.5-11.0)
[2019-04-12 03:56] LABS: ALANINE AMINOTRANSFERASE 30 U/L (12-78); ALBUMIN 2.2 G/DL (3.4-5.0); ALBUMIN/GLOBULIN RATIO 0.6 (1.1-1.5); ALKALINE PHOSPHATASE 59 IU/L (46-116); ANION GAP 4 (8-16); ASPARTATE AMINO TRANSFERASE 18 U/L (10-37); BILIRUBIN,TOTAL 0.5 MG/DL (0.1-1.0); BLOOD UREA NITROGEN 17 MG/DL (7-18); BUN/CREATININE RATIO 13.8 (5.4-32.0); CALCIUM 8.3 MG/DL (8.5-10.1); CHLORIDE 107 MMOL/L (99-107); CREATININE 1.23 MG/DL (0.60-1.10); GLUCOSE 129 MG/DL (70-104); POTASSIUM 4.1 MMOL/L (3.5-5.1); SODIUM 141 MMOL/L (135-145); TOTAL CARBON DIOXIDE 30.5 MMOL/L (24-32); TOTAL PROTEIN 5.8 G/DL (6.4-8.2); eGFR 61 ML/MIN
--- NOTE | 2019-04-12 06:37 | NUR ---
Problems reprioritized. Patient report given, questions answered & plan of care reviewed with Maryellen. Addendum: 04/12/19 at 0637 by Zaki Ventura RN Amended: Links added.
[2019-04-12 07:00] VITALS: BP 120/52
[2019-04-12] MEDS: K and/or MAG REPLACEMENT MC SCH (07:02)
[2019-04-12] MEDS: ziprasidone 20mg capsule PO SCH ×2 (08:04→20:03)
[2019-04-12] MEDS: metroNIDAZOLE-Flagyl 500mg/NS 100 ML IV SCH ×3 (08:04→23:50)
[2019-04-12] MEDS: lactobacillus rhamnosus 10,000 MMU CELLS/CAPSULE PO SCH ×2 (08:04→20:02)
[2019-04-12] MEDS: duloxetine 30mg CAPSULE.DR PO SCH (08:04)
[2019-04-12] MEDS: gabapentin 300mg capsule PO SCH ×3 (08:05→22:30)
[2019-04-12] MEDS: atorvastatin 20mg tablet PO SCH (08:05)
[2019-04-12] MEDS: fenofibrate 145mg tablet PO SCH (08:05)
[2019-04-12] MEDS: metoprolol succinate 25mg (24-HOUR) SR. Tablet PO SCH (08:05)
[2019-04-12] MEDS: ciprofloxacin/D5W 200mg/100mL 100 ML IV SCH ×2 (09:11→20:03)
[2019-04-12] MEDS: MVI, adult No.4 with vit. K 10 ML in normal saline 500ml IV soln 500 ML IV SCH ×2 (09:11)
[2019-04-12 11:00] VITALS: BP 150/75
[2019-04-12] MEDS: HYDROcodone/acetaminophen 5mg/325mg tablet PO PRN (11:20)
[2019-04-12] MEDS: Trace element-5 inj. 1 ML in AA 5%/cal/electrolyte-TPN/D15W 2,000 ML IV SCH (16:27)
[2019-04-12] MEDS: normal saline 1000ml 1,000 ML IV SCH (17:19)
--- NOTE | 2019-04-12 18:19 | NUR ---
Problems reprioritized. Patient report given, questions answered & plan of care reviewed with MARBELLA Chávez.
--- NOTE | 2019-04-12 18:28 | NUR ---
Patient in room RAO 349. I have received report from Maryellen TYSON and had the opportunity to ask questions and assume patient care.
[2019-04-12] MEDS: FAT EMULSION IV SCH (20:03)
[2019-04-12] MEDS: tamsulosin 0.4mg capsule PO SCH (22:30)
[2019-04-12] MEDS: diatr meglu/diatrizoate 30ml oral sol.-(3 dose) bottle PO SCH (23:50)
[2019-04-13] MEDS: normal saline 1000ml 1,000 ML IV SCH (01:26)
--- NOTE | 2019-04-13 06:40 | NUR ---
Problems reprioritized. Patient report given, questions answered & plan of care reviewed with KRISTA TYSON.
[2019-04-13 06:44] LABS: BASOPHILS % (AUTO) 0.3 % (0-1); EOSINOPHILS # (AUTO) 0.3 X10'3 (0-0.9); EOSINOPHILS % (AUTO) 3.6 % (0-6); HEMOGLOBIN 7.4 g/dl (14.0-17.9); LYMPHOCYTES # (AUTO) 0.8 X10'3 (1.1-4.8); LYMPHOCYTES % (AUTO) 8.8 % (21-51); MEAN CORPUSCULAR HEMOGLOBIN 29.6 PG (27.0-31.0); MEAN CORPUSCULAR HGB CONC 33.7 g/dL (33.0-36.5); MEAN CORPUSCULAR VOLUME 87.6 FL (78-98); MEAN PLATELET VOLUME 7.1 FL (7.4-10.4); MONOCYTES # (AUTO) 0.9 X10'3 (0-0.9); MONOCYTES % (AUTO) 9.7 % (2-12); NEUTROPHILS # (AUTO) 7.1 X10'3 (1.8-7.7); NEUTROPHILS % (AUTO) 77.6 % (42-75); PLATELET COUNT 340 X10'3 (140-440); RED CELL DISTRIBUTION WIDTH 14.6 % (11.5-14.5); WHITE BLOOD COUNT 9.1 X10'3 (4.5-11.0)
[2019-04-13 06:50] LABS: HEMATOCRIT 21.9 % (42.0-52.0)
[2019-04-13 06:57] LABS: ALANINE AMINOTRANSFERASE 26 U/L (12-78); ALBUMIN 2.1 G/DL (3.4-5.0); ALBUMIN/GLOBULIN RATIO 0.6 (1.1-1.5); ALKALINE PHOSPHATASE 50 IU/L (46-116); ANION GAP 6 (8-16); ASPARTATE AMINO TRANSFERASE 17 U/L (10-37); BILIRUBIN,TOTAL 0.5 MG/DL (0.1-1.0); BLOOD UREA NITROGEN 17 MG/DL (7-18); CALCIUM 8.2 MG/DL (8.5-10.1); CHLORIDE 108 MMOL/L (99-107); CREATININE 1.21 MG/DL (0.60-1.10); GLUCOSE 120 MG/DL (70-104); POTASSIUM 4.1 MMOL/L (3.5-5.1); SODIUM 143 MMOL/L (135-145); TOTAL CARBON DIOXIDE 28.8 MMOL/L (24-32); TOTAL PROTEIN 5.6 G/DL (6.4-8.2); eGFR 62 ML/MIN
[2019-04-13 07:00] VITALS: BP 150/85
[2019-04-13] MEDS: K and/or MAG REPLACEMENT MC SCH (07:17)
[2019-04-13] MEDS: duloxetine 30mg CAPSULE.DR PO SCH (07:31)
[2019-04-13] MEDS: diatr meglu/diatrizoate 30ml oral sol.-(3 dose) bottle PO SCH ×2 (07:31→09:42)
[2019-04-13] MEDS: ciprofloxacin/D5W 200mg/100mL 100 ML IV SCH ×2 (07:31→20:41)
[2019-04-13] MEDS: lactobacillus rhamnosus 10,000 MMU CELLS/CAPSULE PO SCH ×2 (07:31→20:46)
[2019-04-13] MEDS: ziprasidone 20mg capsule PO SCH ×2 (07:31→20:46)
[2019-04-13] MEDS: methylnaltrexone br 12mg/0.6ml inj***SubQ only SQ SCH (07:32)
[2019-04-13] MEDS: gabapentin 300mg capsule PO SCH ×3 (07:32→20:46)
[2019-04-13] MEDS: atorvastatin 20mg tablet PO SCH (07:32)
[2019-04-13] MEDS: metoprolol succinate 25mg (24-HOUR) SR. Tablet PO SCH (07:32)
[2019-04-13] MEDS: fenofibrate 145mg tablet PO SCH (07:33)
[2019-04-13] MEDS: metroNIDAZOLE-Flagyl 500mg/NS 100 ML IV SCH ×2 (08:36→16:43)
[2019-04-13] MEDS: MVI, adult No.4 with vit. K 10 ML in normal saline 500ml IV soln 500 ML IV SCH ×2 (10:17)
[2019-04-13] MEDS: Trace element-5 inj. 1 ML in AA 5%/cal/electrolyte-TPN/D15W 2,000 ML IV SCH (10:27)
[2019-04-13 11:00] VITALS: BP 121/70
[2019-04-13] MEDS: HYDROcodone/acetaminophen 5mg/325mg tablet PO PRN (12:03)
--- NOTE | 2019-04-13 13:30 | NUR ---
WOUND VAC EDUCATION PROVIDED BY WOUND CARE 1. Patient instructed to call the Wound Center or their Home Health Agency immediately if: * They notice a change in the color or amount of the fluid in the canister. * Their wound looks more red than usual or has a foul smell. * The skin around their wound looks reddened or irritated. * The dressing feels loose or appears to be loose. * They experience any increase or changes in their pain. * The alarm will not turn off. 2. Patient instructed that they should not be disconnected from suction for more than 2 hours at a time. * If they are not able to get the suction back on, they need to remove the dressing and take all of the foam out of the wound. * Then moisten sterile gauze with normal saline and place on/in the wound. * Change the dressing once a day until arrangements have been made to replace the wound vac dressing. 3. Patient instructed to turn the wound vac machine OFF and call 911 or go to the ED immediately if their canister fills rapidly with blood. 4. If any of these occur while in the hospital tell a nurse immediately. Addendum: 04/13/19 at 1330 by Sina Heller RN Amended: Links added.
--- NOTE | 2019-04-13 18:07 | NUR ---
Problems reprioritized. Patient report given, questions answered & plan of care reviewed with MARBELLA Chávez.
--- NOTE | 2019-04-13 18:39 | NUR ---
Patient in room RAO 349. I have received report from Maryellen TYSON and had the opportunity to ask questions and assume patient care.
[2019-04-13 20:00] VITALS: BP 129/68
[2019-04-13] MEDS: FAT EMULSION IV SCH (20:45)
[2019-04-13] MEDS: tamsulosin 0.4mg capsule PO SCH (20:46)
[2019-04-13] MEDS ORDERED: VANCOMYCIN LEVEL IV ONE (23:30)
[2019-04-14 00:07] VITALS: BP 130/72
[2019-04-14] MEDS: metroNIDAZOLE-Flagyl 500mg/NS 100 ML IV SCH ×3 (00:20→16:31)
[2019-04-14] MEDS: Trace element-5 inj. 1 ML in AA 5%/cal/electrolyte-TPN/D15W 2,000 ML IV SCH ×2 (04:42→22:35)
[2019-04-14] MEDS: normal saline 1000ml 1,000 ML IV SCH (04:42)
[2019-04-14 05:07] LABS: BASOPHILS # (AUTO) 0.1 X10'3 (0-0.2); BASOPHILS % (AUTO) 0.8 % (0-1); EOSINOPHILS # (AUTO) 0.3 X10'3 (0-0.9); EOSINOPHILS % (AUTO) 4.5 % (0-6); HEMOGLOBIN 7.3 g/dl (14.0-17.9); LYMPHOCYTES # (AUTO) 0.6 X10'3 (1.1-4.8); LYMPHOCYTES % (AUTO) 8.5 % (21-51); MEAN CORPUSCULAR HEMOGLOBIN 34.4 PG (27.0-31.0); MEAN CORPUSCULAR HGB CONC 38.5 g/dL (33.0-36.5); MEAN CORPUSCULAR VOLUME 89.5 FL (78-98); MEAN PLATELET VOLUME 8.4 FL (7.4-10.4); MONOCYTES # (AUTO) 0.6 X10'3 (0-0.9); MONOCYTES % (AUTO) 9.7 % (2-12); NEUTROPHILS % (AUTO) 76.5 % (42-75); PLATELET COUNT 316 X10'3 (140-440); RED BLOOD COUNT 2.13 X10'6 (4.70-6.10); RED CELL DISTRIBUTION WIDTH 14.6 % (11.5-14.5); WHITE BLOOD COUNT 6.6 X10'3 (4.5-11.0)
[2019-04-14 06:16] LABS: ALBUMIN 1.7 G/DL (3.4-5.0); CREATININE 0.91 MG/DL (0.60-1.10); MAGNESIUM 1.1 MG/DL (1.5-2.4); TRIGLYCERIDES 853 MG/DL (20-135); eGFR 86 ML/MIN
--- NOTE | 2019-04-14 06:41 | NUR ---
Problems reprioritized. Patient report given, questions answered & plan of care reviewed with Chey TYSON.
[2019-04-14 06:51] LABS: HEMATOCRIT 19.1 % (42.0-52.0)
[2019-04-14 06:59] LABS: ALANINE AMINOTRANSFERASE 19 U/L (12-78); ALBUMIN/GLOBULIN RATIO 0.5 (1.1-1.5); ALKALINE PHOSPHATASE 37 IU/L (46-116); ANION GAP 11 (8-16); ASPARTATE AMINO TRANSFERASE 19 U/L (10-37); BILIRUBIN,TOTAL 0.3 MG/DL (0.1-1.0); BLOOD UREA NITROGEN 14 MG/DL (7-18); BUN/CREATININE RATIO 15.4 (5.4-32.0); CALCIUM 6.9 MG/DL (8.5-10.1); CHLORIDE 111 MMOL/L (99-107); GLUCOSE 105 MG/DL (70-104); PHOSPHORUS 3.8 MG/DL (2.3-4.5); POTASSIUM 3.4 MMOL/L (3.5-5.1); SODIUM 143 MMOL/L (135-145); TOTAL PROTEIN 4.8 G/DL (6.4-8.2)
--- NOTE | 2019-04-14 07:00 | NUR ---
Patient in room [facility] 349. I have received report from Saira TYSON and had the opportunity to ask questions and assume patient care.
[2019-04-14 07:15] VITALS: BP 158/83
[2019-04-14] MEDS: K and/or MAG REPLACEMENT MC SCH (08:00)
[2019-04-14] MEDS: gabapentin 300mg capsule PO SCH ×3 (08:54→21:25)
[2019-04-14] MEDS: ziprasidone 20mg capsule PO SCH ×2 (08:55→20:02)
[2019-04-14] MEDS: atorvastatin 20mg tablet PO SCH (08:56)
[2019-04-14] MEDS: fenofibrate 145mg tablet PO SCH (08:56)
[2019-04-14] MEDS: duloxetine 30mg CAPSULE.DR PO SCH (08:56)
[2019-04-14] MEDS: lactobacillus rhamnosus 10,000 MMU CELLS/CAPSULE PO SCH ×2 (08:56→20:06)
[2019-04-14] MEDS: metoprolol succinate 25mg (24-HOUR) SR. Tablet PO SCH (08:56)
[2019-04-14] MEDS: baclofen 10mg tablet PO PRN (10:37)
[2019-04-14] MEDS: ciprofloxacin/D5W 200mg/100mL 100 ML IV SCH ×2 (10:37→20:07)
[2019-04-14] MEDS: HYDROmorphone 1 mg/ml syringe IV PRN (10:37)
--- NOTE | 2019-04-14 10:53 | NUR ---
Wound care POC. Arrived at bedside to assess wound vac and dressing. Explained to pt and pt gave informed verbal consent. Assessed drainage which is a dark serosangunieous, about 150 mL since vac placement. Pt reports no new/increasing discomfort or pain in his abdomen since vac placement. Assessed dressing and dressing is CDI with proper suction at this time.
[2019-04-14 11:00] VITALS: BP 130/66
[2019-04-14] MEDS: MVI, adult No.4 with vit. K 10 ML in normal saline 500ml IV soln 500 ML IV SCH ×2 (11:20)
--- NOTE | 2019-04-14 11:31 | NUR ---
patient ambulated x1, medicated for pain in abdomen x1. resting at tis time.
[2019-04-14 11:33] LABS: PLATELET ESTIMATE NORMAL; POLYCHROMASIA 1+
[2019-04-14 11:34] LABS: TEAR DROP CELLS 1+
[2019-04-14 11:35] LABS: ELLIPTOCYTES FEW; ROULEAUX 2+
--- NOTE | 2019-04-14 16:00 | NUR ---
Reassessment: Pt PO 100% clear liquids LBM 04/13 w/ no bowel obstruction per imaging. Given PO diet tolerance and bowel function [employer] regarding weaning TPN and PO diet advancement since contraindicated at this time w/ functional gut. No new notes at this time. Pt TG 853 RD requested redraw per MD approval and resulting TG 66 WNL. Pt tolerating TPN at goal meeting nutrient needs. Will monitor for diet advancement and additional PO protein needs. Rec: 1. Clinimix E 15 at 110ml/hr goal to run continuously for 24 hours to provide: 132 g AA and 396 g dextrose (2.24 mg/kg/min dext load) 2. Separate 84 mL 20% intralipid infusion to run Q12 hours daily at 7 mL/hr to provide 16.8 g lipids (8% total kcal from fat) 3. In total; to provide 2,724 mL volume/day, 1514.4 total non-protein kcals and 2042.4 total kcal. Initiate at 30ml/hr and if tolerated Q12 advance to goal. 4. Per MD approval; wean TPN and advance diet to heart healthy given functioning gut and tolerating PO diet 5. routine bowel care Addendum: 04/14/19 at [address] Amended: Links added.
[2019-04-14] MEDS: ipratropium/albuterol 3ml nebule NEB PRN (16:59)
--- NOTE | 2019-04-14 18:31 | NUR ---
patient up and about in room. Wound vac in place no leaks. All cares given. Report given to Prudence RN
--- NOTE | 2019-04-14 18:44 | NUR ---
Patient in room [facility] 349. I have received report from Chey TYSON and had the opportunity to ask questions and assume patient care.
[2019-04-14 20:00] VITALS: BP 123/71
[2019-04-14] MEDS: magnesium Cl slow-release 64mg tablet PO PRN (20:03)
[2019-04-14] MEDS: HYDROcodone/acetaminophen 5mg/325mg tablet PO PRN (20:04)
[2019-04-14] MEDS: FAT EMULSION IV SCH (20:06)
[2019-04-14] MEDS: tamsulosin 0.4mg capsule PO SCH (21:25)
[2019-04-15] VITALS: BP 142/72
[2019-04-15] MEDS: metroNIDAZOLE-Flagyl 500mg/NS 100 ML IV SCH ×3 (00:27→16:14)
--- NOTE | 2019-04-15 06:48 | NUR ---
Problems reprioritized. Patient report given, questions answered & plan of care reviewed with Mary Jo TYSON.
--- NOTE | 2019-04-15 06:59 | NUR ---
Patient in room [facility] 349. I have received report from MARY TYSON and had the opportunity to ask questions and assume patient care.
[2019-04-15] MEDS: lactobacillus rhamnosus 10,000 MMU CELLS/CAPSULE PO SCH ×2 (08:00→21:09)
[2019-04-15] MEDS: K and/or MAG REPLACEMENT MC SCH (08:00)
[2019-04-15] MEDS ORDERED: VANCOMYCIN LEVEL IV ONE (08:30)
[2019-04-15] MEDS: duloxetine 30mg CAPSULE.DR PO SCH (09:35)
[2019-04-15] MEDS: gabapentin 300mg capsule PO SCH ×3 (09:35→21:29)
[2019-04-15] MEDS: fenofibrate 145mg tablet PO SCH (09:35)
[2019-04-15] MEDS: ziprasidone 20mg capsule PO SCH ×2 (09:36→21:08)
[2019-04-15] MEDS: metoprolol succinate 25mg (24-HOUR) SR. Tablet PO SCH (09:36)
[2019-04-15] MEDS: atorvastatin 20mg tablet PO SCH (09:36)
[2019-04-15] MEDS: ciprofloxacin/D5W 200mg/100mL 100 ML IV SCH ×2 (09:36→21:09)
[2019-04-15] MEDS: HYDROcodone/acetaminophen 5mg/325mg tablet PO PRN (09:54)
[2019-04-15] MEDS: baclofen 10mg tablet PO PRN (09:54)
[2019-04-15 11:00] VITALS: BP 126/67
[2019-04-15] MEDS: methylnaltrexone br 12mg/0.6ml inj***SubQ only SQ SCH (13:29)
--- NOTE | 2019-04-15 16:10 | NUR ---
WAITING FOR TPN. SPOKE WITH PHARMACY THEY ARE WORKING ON IT
[2019-04-15] MEDS: MVI, adult No.4 with vit. K 10 ML in normal saline 500ml IV soln 500 ML IV SCH ×2 (16:51)
[2019-04-15] MEDS: Trace element-5 inj. 1 ML in AA 5%/cal/electrolyte-TPN/D15W 2,000 ML IV SCH (16:51)
--- NOTE | 2019-04-15 18:05 | NUR ---
Patient in room [facility] 349. I have received report from Mary Jo TYSON and had the opportunity to ask questions and assume patient care.
[2019-04-15 20:00] VITALS: BP 135/77
[2019-04-15] MEDS: diatr meglu/diatrizoate 30ml oral sol.-(3 dose) bottle PO SCH (21:00)
[2019-04-15] MEDS: FAT EMULSION IV SCH (21:09)
[2019-04-15] MEDS: tamsulosin 0.4mg capsule PO SCH (21:29)
[2019-04-15] MEDS: vancomycin inj 1,250 MG in normal saline 250ml IV soln 250 ML IV SCH (23:04)
[2019-04-16] VITALS: BP 125/84
[2019-04-16] MEDS: metroNIDAZOLE-Flagyl 500mg/NS 100 ML IV SCH ×3 (01:01→16:20)
[2019-04-16] MEDS: vancomycin inj 1,250 MG in normal saline 250ml IV soln 250 ML IV SCH ×3 (05:07→21:55)
[2019-04-16] MEDS: normal saline 1000ml 1,000 ML IV SCH (05:17)
--- NOTE | 2019-04-16 06:26 | NUR ---
Patient in room [facility]O 349. I have received report from AISHA TYSON and had the opportunity to ask questions and assume patient care.
--- NOTE | 2019-04-16 06:31 | NUR ---
Problems reprioritized. Patient report given, questions answered & plan of care reviewed with Mary Jo TYSON.
[2019-04-16 07:00] VITALS: BP 164/76
[2019-04-16] MEDS: diatr meglu/diatrizoate 30ml oral sol.-(3 dose) bottle PO SCH ×2 (07:00→21:00)
[2019-04-16] MEDS: K and/or MAG REPLACEMENT MC SCH (08:00)
[2019-04-16] MEDS: ciprofloxacin/D5W 200mg/100mL 100 ML IV SCH (09:04)
[2019-04-16] MEDS: gabapentin 300mg capsule PO SCH ×3 (09:04→21:20)
[2019-04-16] MEDS: lactobacillus rhamnosus 10,000 MMU CELLS/CAPSULE PO SCH ×2 (09:04→21:20)
[2019-04-16] MEDS: fenofibrate 145mg tablet PO SCH (09:04)
[2019-04-16] MEDS: duloxetine 30mg CAPSULE.DR PO SCH (09:04)
[2019-04-16] MEDS: metoprolol succinate 25mg (24-HOUR) SR. Tablet PO SCH (09:05)
[2019-04-16] MEDS: ziprasidone 20mg capsule PO SCH ×2 (09:05→21:20)
[2019-04-16] MEDS: atorvastatin 20mg tablet PO SCH (09:05)
[2019-04-16 09:10] LABS: BASOPHILS # (AUTO) 0.1 X10'3 (0-0.2); BASOPHILS % (AUTO) 1.1 % (0-1); EOSINOPHILS # (AUTO) 0.3 X10'3 (0-0.9); HEMATOCRIT 24.3 % (42.0-52.0); HEMOGLOBIN 8.1 g/dl (14.0-17.9); LYMPHOCYTES # (AUTO) 0.6 X10'3 (1.1-4.8); LYMPHOCYTES % (AUTO) 9.9 % (21-51); MEAN CORPUSCULAR HEMOGLOBIN 29.5 PG (27.0-31.0); MEAN CORPUSCULAR HGB CONC 33.4 g/dL (33.0-36.5); MEAN CORPUSCULAR VOLUME 88.3 FL (78-98); MEAN PLATELET VOLUME 7.5 FL (7.4-10.4); MONOCYTES # (AUTO) 0.7 X10'3 (0-0.9); MONOCYTES % (AUTO) 10.9 % (2-12); NEUTROPHILS # (AUTO) 4.7 X10'3 (1.8-7.7); NEUTROPHILS % (AUTO) 73.1 % (42-75); PLATELET COUNT 412 X10'3 (140-440); RED BLOOD COUNT 2.76 X10'6 (4.70-6.10); RED CELL DISTRIBUTION WIDTH 15.1 % (11.5-14.5); WHITE BLOOD COUNT 6.5 X10'3 (4.5-11.0)
[2019-04-16 09:22] LABS: ALANINE AMINOTRANSFERASE 21 U/L (12-78); ALBUMIN 2.4 G/DL (3.4-5.0); ALBUMIN/GLOBULIN RATIO 0.6 (1.1-1.5); ALKALINE PHOSPHATASE 47 IU/L (46-116); ANION GAP 7 (8-16); ASPARTATE AMINO TRANSFERASE 13 U/L (10-37); BILIRUBIN,TOTAL 0.3 MG/DL (0.1-1.0); BLOOD UREA NITROGEN 18 MG/DL (7-18); BUN/CREATININE RATIO 15.4 (5.4-32.0); CALCIUM 9.1 MG/DL (8.5-10.1); CHLORIDE 107 MMOL/L (99-107); CREATININE 1.17 MG/DL (0.60-1.10); GLUCOSE 179 MG/DL (70-104); POTASSIUM 4.4 MMOL/L (3.5-5.1); SODIUM 141 MMOL/L (135-145); TOTAL CARBON DIOXIDE 27.4 MMOL/L (24-32); TOTAL PROTEIN 6.5 G/DL (6.4-8.2); eGFR 65 ML/MIN
[2019-04-16] MEDS: MVI, adult No.4 with vit. K 10 ML in normal saline 500ml IV soln 500 ML IV SCH ×2 (10:23)
[2019-04-16] MEDS: Trace element-5 inj. 1 ML in AA 5%/cal/electrolyte-TPN/D15W 2,000 ML IV SCH (12:01)
--- NOTE | 2019-04-16 12:20 | NUR ---
BROUGHT PT COFFEE. CHANGED HIS BEDDING. HE IS IN A CHAIR WATCHING TV
--- NOTE | 2019-04-16 17:59 | NUR ---
Problems reprioritized. Patient report given, questions answered & plan of care reviewed with AISHA TYSON.
[2019-04-16 20:00] VITALS: BP 125/65
[2019-04-16] MEDS ORDERED: lactobacillus rhamnosus 10,000 MMU CELLS/CAPSULE PO SCH (20:00)
[2019-04-16] MEDS ORDERED: VANCOMYCIN LEVEL IV ONE (20:30)
[2019-04-16] MEDS: FAT EMULSION IV SCH (21:20)
[2019-04-16] MEDS: tamsulosin 0.4mg capsule PO SCH (21:20)
[2019-04-16] MEDS: HYDROcodone/acetaminophen 5mg/325mg tablet PO PRN (21:54)
[2019-04-16] MEDS: baclofen 10mg tablet PO PRN (21:54)
[2019-04-17] VITALS: BP 109/67
[2019-04-17] MEDS: cefepime 1GM in D5W 50mL 50 ML IV SCH ×3 (00:33→16:44)
[2019-04-17] MEDS: vancomycin inj 1,250 MG in normal saline 250ml IV soln 250 ML IV SCH ×3 (05:07→21:38)
[2019-04-17] MEDS: Trace element-5 inj. 1 ML in AA 5%/cal/electrolyte-TPN/D15W 2,000 ML IV SCH (05:08)
--- NOTE | 2019-04-17 06:56 | NUR ---
Problems reprioritized. Patient report given, questions answered & plan of care reviewed with Amy TYSON.
--- NOTE | 2019-04-17 06:56 | NUR ---
Patient in room [facility] 349. I have received report from John TYSON and had the opportunity to ask questions and assume patient care.
[2019-04-17 07:13] VITALS: BP 146/83
[2019-04-17] MEDS: gabapentin 300mg capsule PO SCH ×3 (07:57→20:43)
[2019-04-17] MEDS: ziprasidone 20mg capsule PO SCH ×2 (07:58→20:42)
[2019-04-17] MEDS: atorvastatin 20mg tablet PO SCH (07:58)
[2019-04-17] MEDS: duloxetine 30mg CAPSULE.DR PO SCH (07:58)
[2019-04-17] MEDS: lactobacillus rhamnosus 10,000 MMU CELLS/CAPSULE PO SCH ×2 (07:58→20:42)
[2019-04-17] MEDS: metoprolol succinate 25mg (24-HOUR) SR. Tablet PO SCH (07:58)
[2019-04-17] MEDS: fenofibrate 145mg tablet PO SCH (07:58)
[2019-04-17] MEDS: K and/or MAG REPLACEMENT MC SCH (08:00)
[2019-04-17] MEDS: methylnaltrexone br 12mg/0.6ml inj***SubQ only SQ SCH (08:03)
[2019-04-17 10:10] LABS: BASOPHILS % (AUTO) 0.6 % (0-1); EOSINOPHILS # (AUTO) 0.3 X10'3 (0-0.9); EOSINOPHILS % (AUTO) 5.2 % (0-6); HEMATOCRIT 29.2 % (42.0-52.0); HEMOGLOBIN 9.5 g/dl (14.0-17.9); LYMPHOCYTES # (AUTO) 0.7 X10'3 (1.1-4.8); LYMPHOCYTES % (AUTO) 11.4 % (21-51); MEAN CORPUSCULAR HEMOGLOBIN 28.5 PG (27.0-31.0); MEAN CORPUSCULAR HGB CONC 32.5 g/dL (33.0-36.5); MEAN CORPUSCULAR VOLUME 87.9 FL (78-98); MONOCYTES # (AUTO) 0.6 X10'3 (0-0.9); MONOCYTES % (AUTO) 9.7 % (2-12); NEUTROPHILS # (AUTO) 4.5 X10'3 (1.8-7.7); NEUTROPHILS % (AUTO) 73.1 % (42-75); PLATELET COUNT 425 X10'3 (140-440); RED BLOOD COUNT 3.32 X10'6 (4.70-6.10); RED CELL DISTRIBUTION WIDTH 15.4 % (11.5-14.5); WHITE BLOOD COUNT 6.1 X10'3 (4.5-11.0)
[2019-04-17 11:02] VITALS: BP 113/69
--- NOTE | 2019-04-17 11:21 | NUR ---
PICC line not drawing any longer, notified lab that patient will be a draw from lab.
[2019-04-17] MEDS: magnesium Cl slow-release 64mg tablet PO PRN (11:53)
--- NOTE | 2019-04-17 13:18 | NUR ---
Reassessment: Pt PO 75-100% clear liquids passing gas and continues to have BM's w/ functioning gut. TPN continues at goal though RD rec weaning w/ functional gut to maintain gut integrity and prevent bacterial translocation. TPN to continue pending CT tomorrow per MD note and if CT results OK pt d/c on PO diet. Rec: 1. Clinimix E 5/15 at 110ml/hr goal to run continuously for 24 hours to provide: 132 g AA and 396 g dextrose (2.24 mg/kg/min dext load) 2. Separate 84 mL 20% intralipid infusion to run Q12 hours daily at 7 mL/hr to provide 16.8 g lipids (8% total kcal from fat) 3. In total; to provide 2,724 mL volume/day, 1514.4 total non-protein kcals and 2042.4 total kcal. Initiate at 30ml/hr and if tolerated Q12 advance to goal. 4. Per MD approval; wean TPN and advance diet to heart healthy given functioning gut and tolerating PO diet 5. routine bowel care Addendum: 04/17/19 at [address] Amended: Links added.
--- NOTE | 2019-04-17 18:15 | NUR ---
Patient in room RAO 349. I have received report from Amy TYSON and had the opportunity to ask questions and assume patient care.
--- NOTE | 2019-04-17 18:24 | NUR ---
Problems reprioritized. Patient report given, questions answered & plan of care reviewed with John TYSON.
[2019-04-17 20:00] VITALS: BP 113/70
[2019-04-17] MEDS: magnesium Cl slow-release 64mg tablet PO SCH (20:43)
[2019-04-17] MEDS: baclofen 10mg tablet PO PRN (20:43)
[2019-04-17] MEDS: HYDROcodone/acetaminophen 5mg/325mg tablet PO PRN (20:43)
[2019-04-17] MEDS: FAT EMULSION IV SCH (20:43)
[2019-04-17] MEDS: tamsulosin 0.4mg capsule PO SCH (20:43)
[2019-04-17] MEDS: diatr meglu/diatrizoate 30ml oral sol.-(3 dose) bottle PO SCH (21:36)
[2019-04-18] VITALS: BP 132/72
[2019-04-18] MEDS: Trace element-5 inj. 1 ML in AA 5%/cal/electrolyte-TPN/D15W 2,000 ML IV SCH (00:26)
[2019-04-18] MEDS: cefepime 1GM in D5W 50mL 50 ML IV SCH ×4 (00:26→23:51)
[2019-04-18] MEDS: vancomycin inj 1,250 MG in normal saline 250ml IV soln 250 ML IV SCH ×3 (05:43→21:49)
--- NOTE | 2019-04-18 06:08 | NUR ---
Patient in room [facility] 349. I have received report from John TYSON and had the opportunity to ask questions and assume patient care.
--- NOTE | 2019-04-18 06:25 | NUR ---
Problems reprioritized. Patient report given, questions answered & plan of care reviewed with Amy TYSON.
[2019-04-18] MEDS: diatr meglu/diatrizoate 30ml oral sol.-(3 dose) bottle PO SCH ×2 (07:11→12:07)
[2019-04-18 08:00] VITALS: BP 144/81
[2019-04-18] MEDS: K and/or MAG REPLACEMENT MC SCH (08:00)
[2019-04-18] MEDS: HYDROcodone/acetaminophen 5mg/325mg tablet PO PRN ×2 (08:47→21:49)
[2019-04-18] MEDS ORDERED: iohexol 300mg/ml 100ml inj. ONE (09:28)
[2019-04-18 12:16] VITALS: BP 135/88
[2019-04-18] MEDS: duloxetine 30mg CAPSULE.DR PO SCH (12:35)
[2019-04-18] MEDS: fenofibrate 145mg tablet PO SCH (12:35)
[2019-04-18] MEDS: metoprolol succinate 25mg (24-HOUR) SR. Tablet PO SCH (12:35)
[2019-04-18] MEDS: atorvastatin 20mg tablet PO SCH (12:35)
[2019-04-18] MEDS: ziprasidone 20mg capsule PO SCH ×2 (12:35→21:48)
[2019-04-18] MEDS: gabapentin 300mg capsule PO SCH ×3 (12:36→21:48)
[2019-04-18] MEDS: lactobacillus rhamnosus 10,000 MMU CELLS/CAPSULE PO SCH ×2 (12:36→21:48)
[2019-04-18] MEDS: magnesium Cl slow-release 64mg tablet PO SCH ×2 (12:36→14:27)
[2019-04-18 13:15] LABS: BASOPHILS # (AUTO) 0.1 X10'3 (0-0.2); BASOPHILS % (AUTO) 0.8 % (0-1); EOSINOPHILS # (AUTO) 0.3 X10'3 (0-0.9); EOSINOPHILS % (AUTO) 4.7 % (0-6); HEMATOCRIT 28.1 % (42.0-52.0); HEMOGLOBIN 9.1 g/dl (14.0-17.9); LYMPHOCYTES # (AUTO) 0.9 X10'3 (1.1-4.8); LYMPHOCYTES % (AUTO) 12.7 % (21-51); MEAN CORPUSCULAR HEMOGLOBIN 28.5 PG (27.0-31.0); MEAN CORPUSCULAR HGB CONC 32.5 g/dL (33.0-36.5); MEAN CORPUSCULAR VOLUME 87.8 FL (78-98); MEAN PLATELET VOLUME 7.4 FL (7.4-10.4); MONOCYTES # (AUTO) 0.6 X10'3 (0-0.9); MONOCYTES % (AUTO) 9.3 % (2-12); NEUTROPHILS % (AUTO) 72.5 % (42-75); PLATELET COUNT 499 X10'3 (140-440); RED CELL DISTRIBUTION WIDTH 15.2 % (11.5-14.5); WHITE BLOOD COUNT 6.8 X10'3 (4.5-11.0)
[2019-04-18 13:24] LABS: ALANINE AMINOTRANSFERASE 23 U/L (12-78); ALBUMIN 2.8 G/DL (3.4-5.0); ALBUMIN/GLOBULIN RATIO 0.6 (1.1-1.5); ALKALINE PHOSPHATASE 51 IU/L (46-116); ANION GAP 6 (8-16); ASPARTATE AMINO TRANSFERASE 13 U/L (10-37); BILIRUBIN,TOTAL 0.3 MG/DL (0.1-1.0); BLOOD UREA NITROGEN 18 MG/DL (7-18); BUN/CREATININE RATIO 14.4 (5.4-32.0); CALCIUM 9.6 MG/DL (8.5-10.1); CHLORIDE 104 MMOL/L (99-107); CREATININE 1.25 MG/DL (0.60-1.10); GLUCOSE 124 MG/DL (70-104); MAGNESIUM 1.3 MG/DL (1.5-2.4); PHOSPHORUS 4.2 MG/DL (2.3-4.5); POTASSIUM 4.3 MMOL/L (3.5-5.1); PREALBUMIN 22.9 MG/DL (19-36); SODIUM 138 MMOL/L (135-145); TOTAL CARBON DIOXIDE 28.5 MMOL/L (24-32); TOTAL PROTEIN 7.4 G/DL (6.4-8.2); TRIGLYCERIDES 125 MG/DL (20-135); eGFR 60 ML/MIN
--- NOTE | 2019-04-18 13:37 | NUR ---
24 hour urine completed, start on 04/17/19 @ 1310, stop on 04/18/19 @1320
[2019-04-18 14:28] LABS: UREA NITROGEN 24HR,URINE 12.3 GM/24HR (7-20)
[2019-04-18] MEDS: normal saline 1000ml 1,000 ML IV SCH (14:56)
[2019-04-18] MEDS: Trace element-5 inj. 0.5 ML in AA 5%/cal/electrolyte-TPN/D15W 1,000 ML IV SCH ×2 (16:45→22:19)
--- NOTE | 2019-04-18 16:45 | NUR ---
TPN rate cut into half, 55 ml/hr per protocol.
--- NOTE | 2019-04-18 17:46 | NUR ---
Order in for CM to set up Patient with HH on discharge, Home [place], and visit Qweek to wound clinic.
--- NOTE | 2019-04-18 18:14 | NUR ---
Problems reprioritized. Patient report given, questions answered & plan of care reviewed with Windy TYSON.
--- NOTE | 2019-04-18 18:23 | NUR ---
Spoke with Israel in pharmacy, do not start lipids until accu check done at 2300 to see if TPN will continue or stop with weaning protocol. If continued start lipids as ordered.
[2019-04-18 20:00] VITALS: BP 125/70
[2019-04-18] MEDS: tamsulosin 0.4mg capsule PO SCH (21:48)
[2019-04-18] MEDS: baclofen 10mg tablet PO PRN (21:48)
[2019-04-18] MEDS: FAT EMULSION IV SCH (22:14)
--- NOTE | 2019-04-18 23:39 | NUR ---
BS check @3810, 101. Patient BS is within parameters of 80-140. TPN discontinued to night per protocol.
[2019-04-19] VITALS: BP 116/65
[2019-04-19] MEDS: magnesium Cl slow-release 64mg tablet PO PRN ×3 (00:19→15:01)
[2019-04-19 05:18] LABS: MAGNESIUM 1.4 MG/DL (1.5-2.4); POTASSIUM 4.5 MMOL/L (3.5-5.1)
[2019-04-19 05:26] LABS: BASOPHILS % (AUTO) 0.5 % (0-1); EOSINOPHILS # (AUTO) 0.4 X10'3 (0-0.9); EOSINOPHILS % (AUTO) 5.3 % (0-6); HEMATOCRIT 27.2 % (42.0-52.0); HEMOGLOBIN 9.1 g/dl (14.0-17.9); LYMPHOCYTES % (AUTO) 15.2 % (21-51); MEAN CORPUSCULAR HEMOGLOBIN 29.3 PG (27.0-31.0); MEAN CORPUSCULAR HGB CONC 33.6 g/dL (33.0-36.5); MEAN CORPUSCULAR VOLUME 87.1 FL (78-98); MEAN PLATELET VOLUME 7.4 FL (7.4-10.4); MONOCYTES # (AUTO) 0.8 X10'3 (0-0.9); MONOCYTES % (AUTO) 11.3 % (2-12); NEUTROPHILS # (AUTO) 4.6 X10'3 (1.8-7.7); NEUTROPHILS % (AUTO) 67.7 % (42-75); PLATELET COUNT 454 X10'3 (140-440); RED BLOOD COUNT 3.12 X10'6 (4.70-6.10); RED CELL DISTRIBUTION WIDTH 15.5 % (11.5-14.5); WHITE BLOOD COUNT 6.8 X10'3 (4.5-11.0)
[2019-04-19] MEDS: vancomycin inj 1,250 MG in normal saline 250ml IV soln 250 ML IV SCH ×2 (05:29→12:12)
--- NOTE | 2019-04-19 05:31 | NUR ---
Blood sugar check this morning 6 hrs after TPN discontinued. 81. Will continue with care. 2 juice box given to patient.
[2019-04-19] MEDS ORDERED: cefepime 1GM/NS ADD-VANTAGE 100 ML IV SCH ×2 (06:18→16:00)
[2019-04-19 06:56] VITALS: BP 138/78
[2019-04-19] MEDS: diatr meglu/diatrizoate 30ml oral sol.-(3 dose) bottle PO SCH (07:00)
[2019-04-19] MEDS: methylnaltrexone br 12mg/0.6ml inj***SubQ only SQ SCH (07:14)
[2019-04-19] MEDS: ziprasidone 20mg capsule PO SCH (07:15)
[2019-04-19] MEDS: metoprolol succinate 25mg (24-HOUR) SR. Tablet PO SCH (07:15)
[2019-04-19] MEDS: lactobacillus rhamnosus 10,000 MMU CELLS/CAPSULE PO SCH (07:15)
[2019-04-19] MEDS: gabapentin 300mg capsule PO SCH ×2 (07:16→12:12)
[2019-04-19] MEDS: atorvastatin 20mg tablet PO SCH (07:16)
[2019-04-19] MEDS: magnesium Cl slow-release 64mg tablet PO SCH (07:16)
[2019-04-19] MEDS: duloxetine 30mg CAPSULE.DR PO SCH (07:16)
[2019-04-19] MEDS: K and/or MAG REPLACEMENT MC SCH (07:17)
[2019-04-19] MEDS: baclofen 10mg tablet PO PRN (08:30)
[2019-04-19] MEDS: cefepime 1GM in D5W 50mL 50 ML IV SCH (08:30)
[2019-04-19] MEDS: fenofibrate 145mg tablet PO SCH (08:30)
[2019-04-19] MEDS: HYDROcodone/acetaminophen 5mg/325mg tablet PO PRN (08:31)
[2019-04-19 11:30] VITALS: BP 115/59
--- NOTE | 2019-04-19 12:12 | NUR ---
Reassessment: TPN has been d/c'ed and PO diet has been advanced to mechanical soft CHO controlled, documented with 100% PO intake meeting nutrient needs. Noted that pt c/o hunger per physical assessment, will send double protein TID. Pt with no PMH of DM although A1c 6.4 on admit. BG levels well controlled during admit with range 81-179. Patient's current wt +2.27 kg since admit however -5.9 kg since 04/13. Wt loss likely r/t fluid as pt documented with -15.8 L fluid balance over the last 5 days. LBM 04/18. Will continue to follow. Rec: 1. Continue mechanical soft diet. Consider diet change to heart healthy rather than CHO controlled d/t no documented hx of DM and BG levels well controlled throughout LOS 2. Double protein TID 3. routine bowel care 4. Wt per rx Addendum: 04/19/19 at [address] Amended: Links added.
--- NOTE | 2019-04-19 15:00 | NUR ---
Pt. transferred to [facility]. PICC left in place. Wound Vac tubing clamped for transport. Report called in to [facility]. Pt. dressed, belongings gathered. [facility] transport her to pickling operator pt. Pt. left on [facility] with two [facility] staff members. Magnesium replacement finished before pt. transferred.
== END 2019-04-19 15:15 | DRG 908 ==
LOC: ER 09:21 → SUR 3N 14:25 → MED 3N 04-03 13:28 → SUR 3N 04-10 16:59
PROVIDERS: ADMIT Family Medicine; ATTEND Family Medicine
PROC: 0WQF0ZZ Repair Abdominal Wall, Open Approach (ICD-10-PCS; 2019-04-01)
PROC: 30233N1 Transfusion of Nonautologous Red Blood Cells into Peripheral Vein, Percutaneous Approach (ICD-10-PCS; 2019-04-01)
PROC: 0DC80ZZ Extirpation of Matter from Small Intestine, Open Approach (ICD-10-PCS; principal; 2019-04-01 17:57)
PROC: 0D9670Z Drainage of Stomach with Drainage Device, Via Natural or Artificial Opening (ICD-10-PCS; 2019-04-03)
PROC: 5A09357 Assistance with Respiratory Ventilation, Less than 24 Consecutive Hours, Continuous Positive Airway Pressure (ICD-10-PCS; 2019-04-04)
PROC: 02HV33Z Insertion of Infusion Device into Superior Vena Cava, Percutaneous Approach (ICD-10-PCS; 2019-04-04)
PROC: B548ZZA Ultrasonography of Superior Vena Cava, Guidance (ICD-10-PCS; 2019-04-04)
PROC: 5A09357 Assistance with Respiratory Ventilation, Less than 24 Consecutive Hours, Continuous Positive Airway Pressure (ICD-10-PCS; 2019-04-05)
PROC: 5A09357 Assistance with Respiratory Ventilation, Less than 24 Consecutive Hours, Continuous Positive Airway Pressure (ICD-10-PCS; 2019-04-06)
PROC: 5A09357 Assistance with Respiratory Ventilation, Less than 24 Consecutive Hours, Continuous Positive Airway Pressure (ICD-10-PCS; 2019-04-07)
PROC: BW211ZZ Computerized Tomography (CT Scan) of Abdomen and Pelvis using Low Osmolar Contrast (ICD-10-PCS; 2019-04-18)
DX: T81.32XA Disruption of internal operation (surgical) wound, not elsewhere classified, initial encounter (principal); J44.1 Chronic obstructive pulmonary disease with (acute) exacerbation; D62 Acute posthemorrhagic anemia; K91.31 Postprocedural partial intestinal obstruction; N17.9 Acute kidney failure, unspecified; K56.7 Ileus, unspecified; Z96.653 Presence of artificial knee joint, bilateral; F32.9 Major depressive disorder, single episode, unspecified; M10.9 Gout, unspecified; M19.90 Unspecified osteoarthritis, unspecified site; N18.3 Chronic kidney disease, stage 3 (moderate); M54.30 Sciatica, unspecified side; R00.0 Tachycardia, unspecified; F41.9 Anxiety disorder, unspecified; I95.9 Hypotension, unspecified; K43.2 Incisional hernia without obstruction or gangrene; Y83.8 Other surgical procedures as the cause of abnormal reaction of the patient, or of later complication, without mention of misadventure at the time of the procedure; S30.1XXA Contusion of abdominal wall, initial encounter; B95.62 Methicillin resistant Staphylococcus aureus infection as the cause of diseases classified elsewhere; E87.5 Hyperkalemia; E78.5 Hyperlipidemia, unspecified; E87.6 Hypokalemia; F43.10 Post-traumatic stress disorder, unspecified; B95.2 Enterococcus as the cause of diseases classified elsewhere; G89.4 Chronic pain syndrome; I12.9 Hypertensive chronic kidney disease with stage 1 through stage 4 chronic kidney disease, or unspecified chronic kidney disease; N40.0 Benign prostatic hyperplasia without lower urinary tract symptoms; Z80.3 Family history of malignant neoplasm of breast; Z81.8 Family history of other mental and behavioral disorders; Z82.5 Family history of asthma and other chronic lower respiratory diseases; Z88.0 Allergy status to penicillin; Z88.1 Allergy status to other antibiotic agents; Z79.899 Other long term (current) drug therapy; Z90.49 Acquired absence of other specified parts of digestive tract; Y92.89 Other specified places as the place of occurrence of the external cause
CPT/HCPCS: 36415; 36569; 74018; 74021; 74176; 74177; 76937; 80047; 80053; 80202; 81003; 82948; 83036; 83605; 83690; 83735; 84100; 84132; 84134; 84145; 84478; 84560; 85025; 85610; 85730; 86885; 86900; 86901; 86920; 87040; 87070; 87075; 87077; 87081; 87186; 88302; 93005; 94640; 94660; 94667; 94668; 94760; 96361; 96374; 96375; 96376; 97161; 97530; 99285; A4338; A4618; A6449; A7000; C1713; G0378; J0692; J0744; J1100; J1170; J1815; J2212; J2250; J2270; J2370; J2405; J2710; J2765; J3010; J3370; J3475; J3480; J3490; J7030; J7040; J7050; J7120; P9016; P9045; Q0167; Q9963; Q9967

== ENCOUNTER 2019-05-09 09:20 | Day surgery (SDC) | payer MEDICARE, MEDICAID ==
[~2019-05-09 09:20] MED LIST changes: -ALBU2.5V10; +ATOR20TA66 PO; +BACL20TA7 PO; -marijuana
[2019-05-09] MEDS ORDERED: LIDOcaine 2% 5ml jelly ONE ×2 (10:41)
== END 2019-05-09 12:07 | disposition home or self-care (01) ==
LOC: WOUND CARE 09:20
PROVIDERS: ATTEND Surgery
DX: T81.89XA Other complications of procedures, not elsewhere classified, initial encounter (principal); N40.0 Benign prostatic hyperplasia without lower urinary tract symptoms; J44.9 Chronic obstructive pulmonary disease, unspecified; G89.4 Chronic pain syndrome; M10.9 Gout, unspecified; E78.5 Hyperlipidemia, unspecified; I12.9 Hypertensive chronic kidney disease with stage 1 through stage 4 chronic kidney disease, or unspecified chronic kidney disease; N18.3 Chronic kidney disease, stage 3 (moderate); M19.90 Unspecified osteoarthritis, unspecified site; K21.9 Gastro-esophageal reflux disease without esophagitis; M81.0 Age-related osteoporosis without current pathological fracture; F32.9 Major depressive disorder, single episode, unspecified; F41.9 Anxiety disorder, unspecified; Z79.899 Other long term (current) drug therapy; Z96.653 Presence of artificial knee joint, bilateral; Z87.891 Personal history of nicotine dependence; Z90.49 Acquired absence of other specified parts of digestive tract; Z98.890 Other specified postprocedural states; Y83.8 Other surgical procedures as the cause of abnormal reaction of the patient, or of later complication, without mention of misadventure at the time of the procedure
CPT/HCPCS: 11045; 97605; A4456; A4663; A6234

== ENCOUNTER 2019-05-16 08:24 | Day surgery (SDC) | payer MEDICARE, MEDICAID ==
[2019-05-16] MEDS ORDERED: LIDOcaine 2% 5ml jelly ONE (09:00)
== END 2019-05-16 11:27 | disposition home or self-care (01) ==
LOC: WOUND CARE 08:24
PROVIDERS: ATTEND Surgery
DX: T81.89XD Other complications of procedures, not elsewhere classified, subsequent encounter (principal); L98.492 Non-pressure chronic ulcer of skin of other sites with fat layer exposed; N40.0 Benign prostatic hyperplasia without lower urinary tract symptoms; J44.9 Chronic obstructive pulmonary disease, unspecified; G89.4 Chronic pain syndrome; M10.9 Gout, unspecified; E78.5 Hyperlipidemia, unspecified; I12.9 Hypertensive chronic kidney disease with stage 1 through stage 4 chronic kidney disease, or unspecified chronic kidney disease; N18.3 Chronic kidney disease, stage 3 (moderate); M19.90 Unspecified osteoarthritis, unspecified site; K21.9 Gastro-esophageal reflux disease without esophagitis; M81.0 Age-related osteoporosis without current pathological fracture; F32.9 Major depressive disorder, single episode, unspecified; F41.9 Anxiety disorder, unspecified; Z79.899 Other long term (current) drug therapy; Z96.653 Presence of artificial knee joint, bilateral; Z87.891 Personal history of nicotine dependence; Z90.49 Acquired absence of other specified parts of digestive tract; Z98.890 Other specified postprocedural states; Y83.8 Other surgical procedures as the cause of abnormal reaction of the patient, or of later complication, without mention of misadventure at the time of the procedure
CPT/HCPCS: 97597; 97598; A6266; A4456; A4663

== ENCOUNTER 2019-05-23 08:17 | Day surgery (SDC) | payer MEDICARE, MEDICAID | END 2019-05-23 10:45 | disposition home or self-care (01) | LOC: WOUND CARE 08:17 | PROVIDERS: ATTEND Surgery | DX: T81.89XD Other complications of procedures, not elsewhere classified, subsequent encounter (principal); L98.492 Non-pressure chronic ulcer of skin of other sites with fat layer exposed; N40.0 Benign prostatic hyperplasia without lower urinary tract symptoms; J44.9 Chronic obstructive pulmonary disease, unspecified; G89.4 Chronic pain syndrome; M10.9 Gout, unspecified; E78.5 Hyperlipidemia, unspecified; I12.9 Hypertensive chronic kidney disease with stage 1 through stage 4 chronic kidney disease, or unspecified chronic kidney disease; N18.3 Chronic kidney disease, stage 3 (moderate); M19.90 Unspecified osteoarthritis, unspecified site; K21.9 Gastro-esophageal reflux disease without esophagitis; M81.0 Age-related osteoporosis without current pathological fracture; F32.9 Major depressive disorder, single episode, unspecified; F41.9 Anxiety disorder, unspecified; Z79.899 Other long term (current) drug therapy; Z96.653 Presence of artificial knee joint, bilateral; Z87.891 Personal history of nicotine dependence; Z90.49 Acquired absence of other specified parts of digestive tract; Z98.890 Other specified postprocedural states; Y83.8 Other surgical procedures as the cause of abnormal reaction of the patient, or of later complication, without mention of misadventure at the time of the procedure | CPT/HCPCS: 87070; 87075; 87102; 97597; 97598; A6266; 87077; 87186; A4456; A4663 ==

== ENCOUNTER 2019-05-27 08:17 | Day surgery (SDC) | payer MEDICARE, MEDICAID ==
[2019-05-27] MEDS ORDERED: LIDOcaine/PRILOcaine 5gm cream TP ONE (09:10)
[2019-05-27] MEDS ORDERED: LIDOcaine 1%/PF 5ML 10 MG/ML VIAL ONE (09:55)
== END 2019-05-27 10:40 | disposition home or self-care (01) ==
LOC: WOUND CARE 08:17
PROVIDERS: ATTEND Surgery
DX: T81.89XD Other complications of procedures, not elsewhere classified, subsequent encounter (principal); L98.492 Non-pressure chronic ulcer of skin of other sites with fat layer exposed; N40.0 Benign prostatic hyperplasia without lower urinary tract symptoms; J44.9 Chronic obstructive pulmonary disease, unspecified; G89.4 Chronic pain syndrome; M10.9 Gout, unspecified; E78.5 Hyperlipidemia, unspecified; I12.9 Hypertensive chronic kidney disease with stage 1 through stage 4 chronic kidney disease, or unspecified chronic kidney disease; N18.3 Chronic kidney disease, stage 3 (moderate); M19.90 Unspecified osteoarthritis, unspecified site; K21.9 Gastro-esophageal reflux disease without esophagitis; M81.0 Age-related osteoporosis without current pathological fracture; F32.9 Major depressive disorder, single episode, unspecified; F41.9 Anxiety disorder, unspecified; Z79.899 Other long term (current) drug therapy; Z96.653 Presence of artificial knee joint, bilateral; Z87.891 Personal history of nicotine dependence; Z90.49 Acquired absence of other specified parts of digestive tract; Z98.890 Other specified postprocedural states; Y83.8 Other surgical procedures as the cause of abnormal reaction of the patient, or of later complication, without mention of misadventure at the time of the procedure
CPT/HCPCS: 97605; A4663; A6234

== ENCOUNTER 2019-06-03 08:30 | Outpatient (CLI) | payer MEDICARE, MEDICAID | END 2019-06-03 09:41 | disposition home or self-care (01) | LOC: WOUND CARE 08:30 → EDSTATUS 08:30 → WOUND CARE 09:41 | PROVIDERS: ATTEND Surgery | DX: T81.89XD Other complications of procedures, not elsewhere classified, subsequent encounter (principal); L98.492 Non-pressure chronic ulcer of skin of other sites with fat layer exposed; N40.0 Benign prostatic hyperplasia without lower urinary tract symptoms; J44.9 Chronic obstructive pulmonary disease, unspecified; G89.4 Chronic pain syndrome; M10.9 Gout, unspecified; E78.5 Hyperlipidemia, unspecified; I12.9 Hypertensive chronic kidney disease with stage 1 through stage 4 chronic kidney disease, or unspecified chronic kidney disease; N18.3 Chronic kidney disease, stage 3 (moderate); M19.90 Unspecified osteoarthritis, unspecified site; K21.9 Gastro-esophageal reflux disease without esophagitis; M81.0 Age-related osteoporosis without current pathological fracture; F32.9 Major depressive disorder, single episode, unspecified; F41.9 Anxiety disorder, unspecified; Z79.899 Other long term (current) drug therapy; Z96.653 Presence of artificial knee joint, bilateral; Z87.891 Personal history of nicotine dependence; Z90.49 Acquired absence of other specified parts of digestive tract; Z98.890 Other specified postprocedural states; Y83.8 Other surgical procedures as the cause of abnormal reaction of the patient, or of later complication, without mention of misadventure at the time of the procedure | CPT/HCPCS: 97605; A4663; A6234 ==

== ENCOUNTER 2019-06-10 08:50 | Day surgery (SDC) | payer MEDICARE, MEDICAID ==
[2019-06-10] MEDS ORDERED: LIDOcaine/PRILOcaine 5gm cream TP ONE (09:15)
== END 2019-06-10 10:50 | disposition home or self-care (01) ==
LOC: WOUND CARE 08:50
PROVIDERS: ATTEND Surgery
DX: T81.89XD Other complications of procedures, not elsewhere classified, subsequent encounter (principal); L98.492 Non-pressure chronic ulcer of skin of other sites with fat layer exposed; N40.0 Benign prostatic hyperplasia without lower urinary tract symptoms; J44.9 Chronic obstructive pulmonary disease, unspecified; G89.4 Chronic pain syndrome; M10.9 Gout, unspecified; E78.5 Hyperlipidemia, unspecified; I12.9 Hypertensive chronic kidney disease with stage 1 through stage 4 chronic kidney disease, or unspecified chronic kidney disease; N18.3 Chronic kidney disease, stage 3 (moderate); M19.90 Unspecified osteoarthritis, unspecified site; K21.9 Gastro-esophageal reflux disease without esophagitis; M81.0 Age-related osteoporosis without current pathological fracture; F32.9 Major depressive disorder, single episode, unspecified; F41.9 Anxiety disorder, unspecified; Z79.899 Other long term (current) drug therapy; Z96.653 Presence of artificial knee joint, bilateral; Z87.891 Personal history of nicotine dependence; Z90.49 Acquired absence of other specified parts of digestive tract; Z98.890 Other specified postprocedural states; Y83.8 Other surgical procedures as the cause of abnormal reaction of the patient, or of later complication, without mention of misadventure at the time of the procedure
CPT/HCPCS: 97597; A4663

== ENCOUNTER 2019-06-17 08:15 | Day surgery (SDC) | payer MEDICARE, MEDICAID ==
[2019-06-17] MEDS ORDERED: LIDOcaine/PRILOcaine 5gm cream TP ONE (08:57)
== END 2019-06-17 10:30 | disposition home or self-care (01) ==
LOC: WOUND CARE 08:15
PROVIDERS: ATTEND Surgery
DX: T81.89XD Other complications of procedures, not elsewhere classified, subsequent encounter (principal); L98.492 Non-pressure chronic ulcer of skin of other sites with fat layer exposed; N40.0 Benign prostatic hyperplasia without lower urinary tract symptoms; J44.9 Chronic obstructive pulmonary disease, unspecified; G89.4 Chronic pain syndrome; M10.9 Gout, unspecified; E78.5 Hyperlipidemia, unspecified; I12.9 Hypertensive chronic kidney disease with stage 1 through stage 4 chronic kidney disease, or unspecified chronic kidney disease; N18.3 Chronic kidney disease, stage 3 (moderate); M19.90 Unspecified osteoarthritis, unspecified site; K21.9 Gastro-esophageal reflux disease without esophagitis; M81.0 Age-related osteoporosis without current pathological fracture; F32.9 Major depressive disorder, single episode, unspecified; F41.9 Anxiety disorder, unspecified; Z79.899 Other long term (current) drug therapy; Z96.653 Presence of artificial knee joint, bilateral; Z87.891 Personal history of nicotine dependence; Z90.49 Acquired absence of other specified parts of digestive tract; Z98.890 Other specified postprocedural states; Y83.8 Other surgical procedures as the cause of abnormal reaction of the patient, or of later complication, without mention of misadventure at the time of the procedure
CPT/HCPCS: 15271; A6222; Q4160; A4456; A4663

== ENCOUNTER 2019-07-01 08:30 | Day surgery (SDC) | payer MEDICARE, MEDICAID ==
[2019-07-01] MEDS ORDERED: LIDOcaine/PRILOcaine 5gm cream TP ONE (08:56)
== END 2019-07-01 10:47 | disposition home or self-care (01) ==
LOC: WOUND CARE 08:30
PROVIDERS: ATTEND Surgery
DX: T81.89XD Other complications of procedures, not elsewhere classified, subsequent encounter (principal); L98.492 Non-pressure chronic ulcer of skin of other sites with fat layer exposed; N40.0 Benign prostatic hyperplasia without lower urinary tract symptoms; J44.9 Chronic obstructive pulmonary disease, unspecified; G89.4 Chronic pain syndrome; M10.9 Gout, unspecified; E78.5 Hyperlipidemia, unspecified; I12.9 Hypertensive chronic kidney disease with stage 1 through stage 4 chronic kidney disease, or unspecified chronic kidney disease; N18.3 Chronic kidney disease, stage 3 (moderate); M19.90 Unspecified osteoarthritis, unspecified site; K21.9 Gastro-esophageal reflux disease without esophagitis; M81.0 Age-related osteoporosis without current pathological fracture; F32.9 Major depressive disorder, single episode, unspecified; F41.9 Anxiety disorder, unspecified; Z79.899 Other long term (current) drug therapy; Z96.653 Presence of artificial knee joint, bilateral; Z87.891 Personal history of nicotine dependence; Z90.49 Acquired absence of other specified parts of digestive tract; Z98.890 Other specified postprocedural states; Y83.8 Other surgical procedures as the cause of abnormal reaction of the patient, or of later complication, without mention of misadventure at the time of the procedure
CPT/HCPCS: 15271; Q4160; A4456; A4663

== ENCOUNTER 2019-07-08 08:11 | Day surgery (SDC) | payer MEDICARE, MEDICAID ==
[2019-07-08] MEDS ORDERED: LIDOcaine/PRILOcaine 5gm cream TP ONE (09:13)
== END 2019-07-08 10:00 | disposition home or self-care (01) ==
LOC: WOUND CARE 08:11 → EDSTATUS 08:30 → WOUND CARE 10:00
PROVIDERS: ATTEND Surgery
DX: T81.89XD Other complications of procedures, not elsewhere classified, subsequent encounter (principal); L98.492 Non-pressure chronic ulcer of skin of other sites with fat layer exposed; N40.0 Benign prostatic hyperplasia without lower urinary tract symptoms; J44.9 Chronic obstructive pulmonary disease, unspecified; G89.4 Chronic pain syndrome; M10.9 Gout, unspecified; E78.5 Hyperlipidemia, unspecified; I12.9 Hypertensive chronic kidney disease with stage 1 through stage 4 chronic kidney disease, or unspecified chronic kidney disease; N18.3 Chronic kidney disease, stage 3 (moderate); M19.90 Unspecified osteoarthritis, unspecified site; K21.9 Gastro-esophageal reflux disease without esophagitis; M81.0 Age-related osteoporosis without current pathological fracture; F32.9 Major depressive disorder, single episode, unspecified; F41.9 Anxiety disorder, unspecified; Z79.899 Other long term (current) drug therapy; Z96.653 Presence of artificial knee joint, bilateral; Z87.891 Personal history of nicotine dependence; Z90.49 Acquired absence of other specified parts of digestive tract; Z98.890 Other specified postprocedural states; Y83.8 Other surgical procedures as the cause of abnormal reaction of the patient, or of later complication, without mention of misadventure at the time of the procedure
CPT/HCPCS: 15271; Q4160; A6154; A6250

== ENCOUNTER 2019-07-15 08:25 | Day surgery (SDC) | payer MEDICARE, MEDICAID ==
[2019-07-15] MEDS ORDERED: LIDOcaine 2% 5ml jelly ONE (09:06)
== END 2019-07-15 10:25 | disposition home or self-care (01) ==
LOC: WOUND CARE 08:25
PROVIDERS: ATTEND Surgery
DX: T81.89XD Other complications of procedures, not elsewhere classified, subsequent encounter (principal); L98.492 Non-pressure chronic ulcer of skin of other sites with fat layer exposed; N40.0 Benign prostatic hyperplasia without lower urinary tract symptoms; J44.9 Chronic obstructive pulmonary disease, unspecified; G89.4 Chronic pain syndrome; M10.9 Gout, unspecified; E78.5 Hyperlipidemia, unspecified; I12.9 Hypertensive chronic kidney disease with stage 1 through stage 4 chronic kidney disease, or unspecified chronic kidney disease; N18.3 Chronic kidney disease, stage 3 (moderate); M19.90 Unspecified osteoarthritis, unspecified site; K21.9 Gastro-esophageal reflux disease without esophagitis; M81.0 Age-related osteoporosis without current pathological fracture; F32.9 Major depressive disorder, single episode, unspecified; F41.9 Anxiety disorder, unspecified; Z79.899 Other long term (current) drug therapy; Z96.653 Presence of artificial knee joint, bilateral; Z87.891 Personal history of nicotine dependence; Z90.49 Acquired absence of other specified parts of digestive tract; Z98.890 Other specified postprocedural states; Y83.8 Other surgical procedures as the cause of abnormal reaction of the patient, or of later complication, without mention of misadventure at the time of the procedure
CPT/HCPCS: 97597; A4456; A4663; A6021

== ENCOUNTER 2019-07-22 08:17 | Day surgery (SDC) | payer MEDICARE, MEDICAID ==
[2019-07-22] MEDS ORDERED: LIDOcaine 2% 5ml jelly ONE ×2 (09:19→09:37)
== END 2019-07-22 10:26 | disposition home or self-care (01) ==
LOC: WOUND CARE 08:17
PROVIDERS: ATTEND Surgery
DX: T81.89XD Other complications of procedures, not elsewhere classified, subsequent encounter (principal); L98.492 Non-pressure chronic ulcer of skin of other sites with fat layer exposed; N40.0 Benign prostatic hyperplasia without lower urinary tract symptoms; J44.9 Chronic obstructive pulmonary disease, unspecified; G89.4 Chronic pain syndrome; M10.9 Gout, unspecified; E78.5 Hyperlipidemia, unspecified; I12.9 Hypertensive chronic kidney disease with stage 1 through stage 4 chronic kidney disease, or unspecified chronic kidney disease; N18.3 Chronic kidney disease, stage 3 (moderate); M19.90 Unspecified osteoarthritis, unspecified site; K21.9 Gastro-esophageal reflux disease without esophagitis; M81.0 Age-related osteoporosis without current pathological fracture; F32.9 Major depressive disorder, single episode, unspecified; F41.9 Anxiety disorder, unspecified; Z79.899 Other long term (current) drug therapy; Z96.653 Presence of artificial knee joint, bilateral; Z87.891 Personal history of nicotine dependence; Z90.49 Acquired absence of other specified parts of digestive tract; Z98.890 Other specified postprocedural states; Y83.8 Other surgical procedures as the cause of abnormal reaction of the patient, or of later complication, without mention of misadventure at the time of the procedure
CPT/HCPCS: 15271; Q4160; A6154; A6234; A6250

== ENCOUNTER 2019-08-03 08:20 | Day surgery (SDC) | payer MEDICARE, MEDICAID ==
[2019-08-03] MEDS ORDERED: LIDOcaine 2% 5ml jelly ONE (09:34)
== END 2019-08-03 10:39 | disposition home or self-care (01) ==
LOC: WOUND CARE 08:20
PROVIDERS: ATTEND Surgery
DX: T81.89XD Other complications of procedures, not elsewhere classified, subsequent encounter (principal); L98.492 Non-pressure chronic ulcer of skin of other sites with fat layer exposed; N40.0 Benign prostatic hyperplasia without lower urinary tract symptoms; J44.9 Chronic obstructive pulmonary disease, unspecified; G89.4 Chronic pain syndrome; M10.9 Gout, unspecified; E78.5 Hyperlipidemia, unspecified; I12.9 Hypertensive chronic kidney disease with stage 1 through stage 4 chronic kidney disease, or unspecified chronic kidney disease; N18.3 Chronic kidney disease, stage 3 (moderate); M19.90 Unspecified osteoarthritis, unspecified site; K21.9 Gastro-esophageal reflux disease without esophagitis; M81.0 Age-related osteoporosis without current pathological fracture; F32.9 Major depressive disorder, single episode, unspecified; F41.9 Anxiety disorder, unspecified; Z79.899 Other long term (current) drug therapy; Z96.653 Presence of artificial knee joint, bilateral; Z87.891 Personal history of nicotine dependence; Z90.49 Acquired absence of other specified parts of digestive tract; Z98.890 Other specified postprocedural states; Y83.8 Other surgical procedures as the cause of abnormal reaction of the patient, or of later complication, without mention of misadventure at the time of the procedure
CPT/HCPCS: 97597; 97598; A4456; A4663; A6021; A6154

== ENCOUNTER 2019-08-12 08:30 | Day surgery (SDC) | payer MEDICARE, MEDICAID ==
[2019-08-12] MEDS ORDERED: LIDOcaine/PRILOcaine 5gm cream TP ONE (08:53)
== END 2019-08-12 10:17 | disposition home or self-care (01) ==
LOC: WOUND CARE 08:30
PROVIDERS: ATTEND Surgery
DX: T81.89XD Other complications of procedures, not elsewhere classified, subsequent encounter (principal); L98.492 Non-pressure chronic ulcer of skin of other sites with fat layer exposed; N40.0 Benign prostatic hyperplasia without lower urinary tract symptoms; J44.9 Chronic obstructive pulmonary disease, unspecified; G89.4 Chronic pain syndrome; M10.9 Gout, unspecified; E78.5 Hyperlipidemia, unspecified; I12.9 Hypertensive chronic kidney disease with stage 1 through stage 4 chronic kidney disease, or unspecified chronic kidney disease; N18.3 Chronic kidney disease, stage 3 (moderate); M19.90 Unspecified osteoarthritis, unspecified site; K21.9 Gastro-esophageal reflux disease without esophagitis; M81.0 Age-related osteoporosis without current pathological fracture; F32.9 Major depressive disorder, single episode, unspecified; F41.9 Anxiety disorder, unspecified; Z79.899 Other long term (current) drug therapy; Z96.653 Presence of artificial knee joint, bilateral; Z87.891 Personal history of nicotine dependence; Z90.49 Acquired absence of other specified parts of digestive tract; Z98.890 Other specified postprocedural states; Y83.8 Other surgical procedures as the cause of abnormal reaction of the patient, or of later complication, without mention of misadventure at the time of the procedure
CPT/HCPCS: 15271; Q4160; A4663; A6250

== ENCOUNTER 2019-08-19 08:15 | Day surgery (SDC) | payer MEDICARE, MEDICAID ==
[2019-08-19] MEDS ORDERED: LIDOcaine 2% 5ml jelly ONE (09:12)
== END 2019-08-19 10:25 | disposition home or self-care (01) ==
LOC: WOUND CARE 08:15
PROVIDERS: ATTEND Surgery
DX: T81.89XD Other complications of procedures, not elsewhere classified, subsequent encounter (principal); L98.492 Non-pressure chronic ulcer of skin of other sites with fat layer exposed; N40.0 Benign prostatic hyperplasia without lower urinary tract symptoms; J44.9 Chronic obstructive pulmonary disease, unspecified; G89.4 Chronic pain syndrome; M10.9 Gout, unspecified; E78.5 Hyperlipidemia, unspecified; I12.9 Hypertensive chronic kidney disease with stage 1 through stage 4 chronic kidney disease, or unspecified chronic kidney disease; N18.3 Chronic kidney disease, stage 3 (moderate); M19.90 Unspecified osteoarthritis, unspecified site; K21.9 Gastro-esophageal reflux disease without esophagitis; M81.0 Age-related osteoporosis without current pathological fracture; F32.9 Major depressive disorder, single episode, unspecified; F41.9 Anxiety disorder, unspecified; Z79.899 Other long term (current) drug therapy; Z96.653 Presence of artificial knee joint, bilateral; Z87.891 Personal history of nicotine dependence; Z90.49 Acquired absence of other specified parts of digestive tract; Z98.890 Other specified postprocedural states; Y83.8 Other surgical procedures as the cause of abnormal reaction of the patient, or of later complication, without mention of misadventure at the time of the procedure
CPT/HCPCS: 97597; 97598; A4456; A4663; A6021; A6154; A6213

== ENCOUNTER 2019-09-02 08:15 | Day surgery (SDC) | payer MEDICARE, MEDICAID ==
[2019-09-02] MEDS ORDERED: LIDOcaine 2% 5ml jelly ONE (09:17)
== END 2019-09-02 10:23 | disposition home or self-care (01) ==
LOC: WOUND CARE 08:15
PROVIDERS: ATTEND Surgery
DX: T81.89XD Other complications of procedures, not elsewhere classified, subsequent encounter (principal); L98.492 Non-pressure chronic ulcer of skin of other sites with fat layer exposed; I12.9 Hypertensive chronic kidney disease with stage 1 through stage 4 chronic kidney disease, or unspecified chronic kidney disease; N18.3 Chronic kidney disease, stage 3 (moderate); J44.9 Chronic obstructive pulmonary disease, unspecified; K21.9 Gastro-esophageal reflux disease without esophagitis; M19.90 Unspecified osteoarthritis, unspecified site; M81.0 Age-related osteoporosis without current pathological fracture; E78.5 Hyperlipidemia, unspecified; N40.0 Benign prostatic hyperplasia without lower urinary tract symptoms; G89.4 Chronic pain syndrome; M10.9 Gout, unspecified; F41.9 Anxiety disorder, unspecified; F32.9 Major depressive disorder, single episode, unspecified; Z96.653 Presence of artificial knee joint, bilateral; Z79.899 Other long term (current) drug therapy; Z98.890 Other specified postprocedural states; Z90.49 Acquired absence of other specified parts of digestive tract; Z86.14 Personal history of Methicillin resistant Staphylococcus aureus infection; Z87.891 Personal history of nicotine dependence; Y83.8 Other surgical procedures as the cause of abnormal reaction of the patient, or of later complication, without mention of misadventure at the time of the procedure
CPT/HCPCS: 97597; 97598; A4456; A4663

== ENCOUNTER 2019-09-16 08:15 | Day surgery (SDC) | payer MEDICARE, MEDICAID ==
[2019-09-16] MEDS ORDERED: LIDOcaine 2% 5ml jelly ONE (09:43)
== END 2019-09-16 10:51 | disposition home or self-care (01) ==
LOC: WOUND CARE 08:15
PROVIDERS: ATTEND Surgery
DX: T81.89XD Other complications of procedures, not elsewhere classified, subsequent encounter (principal); L98.492 Non-pressure chronic ulcer of skin of other sites with fat layer exposed; I12.9 Hypertensive chronic kidney disease with stage 1 through stage 4 chronic kidney disease, or unspecified chronic kidney disease; N18.3 Chronic kidney disease, stage 3 (moderate); J44.9 Chronic obstructive pulmonary disease, unspecified; K21.9 Gastro-esophageal reflux disease without esophagitis; M19.90 Unspecified osteoarthritis, unspecified site; M81.0 Age-related osteoporosis without current pathological fracture; E78.5 Hyperlipidemia, unspecified; N40.0 Benign prostatic hyperplasia without lower urinary tract symptoms; G89.4 Chronic pain syndrome; M10.9 Gout, unspecified; F41.9 Anxiety disorder, unspecified; F32.9 Major depressive disorder, single episode, unspecified; Z96.653 Presence of artificial knee joint, bilateral; Z79.899 Other long term (current) drug therapy; Z98.890 Other specified postprocedural states; Z90.49 Acquired absence of other specified parts of digestive tract; Z86.14 Personal history of Methicillin resistant Staphylococcus aureus infection; Z87.891 Personal history of nicotine dependence; Y83.8 Other surgical procedures as the cause of abnormal reaction of the patient, or of later complication, without mention of misadventure at the time of the procedure
CPT/HCPCS: 15271; 15272; A6222; Q4160; A4456; A4663; A6250

== ENCOUNTER 2019-09-23 08:00 | Day surgery (SDC) | payer MEDICARE, MEDICAID ==
[2019-09-23] MEDS ORDERED: LIDOcaine 2% 5ml jelly ONE (09:03)
== END 2019-09-23 09:37 | disposition home or self-care (01) ==
LOC: WOUND CARE 08:00
PROVIDERS: ATTEND Surgery
DX: T81.89XD Other complications of procedures, not elsewhere classified, subsequent encounter (principal); L98.492 Non-pressure chronic ulcer of skin of other sites with fat layer exposed; I12.9 Hypertensive chronic kidney disease with stage 1 through stage 4 chronic kidney disease, or unspecified chronic kidney disease; N18.3 Chronic kidney disease, stage 3 (moderate); J44.9 Chronic obstructive pulmonary disease, unspecified; K21.9 Gastro-esophageal reflux disease without esophagitis; M19.90 Unspecified osteoarthritis, unspecified site; M81.0 Age-related osteoporosis without current pathological fracture; E78.5 Hyperlipidemia, unspecified; N40.0 Benign prostatic hyperplasia without lower urinary tract symptoms; G89.4 Chronic pain syndrome; M10.9 Gout, unspecified; F41.9 Anxiety disorder, unspecified; F32.9 Major depressive disorder, single episode, unspecified; Z96.653 Presence of artificial knee joint, bilateral; Z79.899 Other long term (current) drug therapy; Z98.890 Other specified postprocedural states; Z90.49 Acquired absence of other specified parts of digestive tract; Z86.14 Personal history of Methicillin resistant Staphylococcus aureus infection; Z87.891 Personal history of nicotine dependence; Y83.8 Other surgical procedures as the cause of abnormal reaction of the patient, or of later complication, without mention of misadventure at the time of the procedure
CPT/HCPCS: 15271; 15272; Q4196; A4663; A6154; A6196; A6250

== ENCOUNTER 2019-09-30 08:25 | Day surgery (SDC) | payer MEDICARE, MEDICAID | END 2019-09-30 11:11 | disposition home or self-care (01) | LOC: WOUND CARE 08:25 | PROVIDERS: ATTEND Surgery | DX: T81.89XD Other complications of procedures, not elsewhere classified, subsequent encounter (principal); L98.492 Non-pressure chronic ulcer of skin of other sites with fat layer exposed; I12.9 Hypertensive chronic kidney disease with stage 1 through stage 4 chronic kidney disease, or unspecified chronic kidney disease; N18.3 Chronic kidney disease, stage 3 (moderate); J44.9 Chronic obstructive pulmonary disease, unspecified; K21.9 Gastro-esophageal reflux disease without esophagitis; M19.90 Unspecified osteoarthritis, unspecified site; M81.0 Age-related osteoporosis without current pathological fracture; E78.5 Hyperlipidemia, unspecified; N40.0 Benign prostatic hyperplasia without lower urinary tract symptoms; G89.4 Chronic pain syndrome; M10.9 Gout, unspecified; F41.9 Anxiety disorder, unspecified; F32.9 Major depressive disorder, single episode, unspecified; Z96.653 Presence of artificial knee joint, bilateral; Z79.899 Other long term (current) drug therapy; Z98.890 Other specified postprocedural states; Z90.49 Acquired absence of other specified parts of digestive tract; Z86.14 Personal history of Methicillin resistant Staphylococcus aureus infection; Z87.891 Personal history of nicotine dependence; Y83.8 Other surgical procedures as the cause of abnormal reaction of the patient, or of later complication, without mention of misadventure at the time of the procedure | CPT/HCPCS: 97597; 97598; A4663 ==

== ENCOUNTER 2019-10-07 08:25 | Day surgery (SDC) | payer MEDICARE, MEDICAID ==
[2019-10-07] MEDS ORDERED: LIDOcaine/PRILOcaine 5gm cream TP ONE (08:58)
== END 2019-10-07 10:31 | disposition home or self-care (01) ==
LOC: WOUND CARE 08:25
PROVIDERS: ATTEND Surgery
DX: T81.89XD Other complications of procedures, not elsewhere classified, subsequent encounter (principal); L98.492 Non-pressure chronic ulcer of skin of other sites with fat layer exposed; I12.9 Hypertensive chronic kidney disease with stage 1 through stage 4 chronic kidney disease, or unspecified chronic kidney disease; N18.3 Chronic kidney disease, stage 3 (moderate); J44.9 Chronic obstructive pulmonary disease, unspecified; K21.9 Gastro-esophageal reflux disease without esophagitis; M19.90 Unspecified osteoarthritis, unspecified site; M81.0 Age-related osteoporosis without current pathological fracture; E78.5 Hyperlipidemia, unspecified; N40.0 Benign prostatic hyperplasia without lower urinary tract symptoms; G89.4 Chronic pain syndrome; M10.9 Gout, unspecified; F41.9 Anxiety disorder, unspecified; F32.9 Major depressive disorder, single episode, unspecified; Z96.653 Presence of artificial knee joint, bilateral; Z79.899 Other long term (current) drug therapy; Z98.890 Other specified postprocedural states; Z90.49 Acquired absence of other specified parts of digestive tract; Z86.14 Personal history of Methicillin resistant Staphylococcus aureus infection; Z87.891 Personal history of nicotine dependence; Y83.8 Other surgical procedures as the cause of abnormal reaction of the patient, or of later complication, without mention of misadventure at the time of the procedure
CPT/HCPCS: 97597; 97598

== ENCOUNTER 2019-10-11 07:24 | Day surgery (SDC) | payer MEDICARE, MEDICAID ==
[2019-10-10 16:02] LABS: CLARITY,URINE CLEAR (Clear); COLOR,URINE YELLOW (Yellow); GLUCOSE, URINE NEGATIVE (Neg); KETONES,URINE NEGATIVE (Neg); LEUKOCYTE ESTERASE ,URINE NEGATIVE (Neg); NITRITES, URINE NEGATIVE (Neg); OCCULT BLOOD,URINE NEGATIVE (Neg); PH,URINE 5.5 (4.8-8.0); PROTEIN,URINE NEGATIVE (Neg); UA COLLECTION TYPE CLN CATCH MIDSTREAM; UROBILINOGEN,URINE 0.2 E.U/dL (0.2-1.0)
[2019-10-10 16:15] LABS: BASOPHILS % (AUTO) 0.4 % (0-1); EOSINOPHILS # (AUTO) 0.2 X10'3 (0-0.9); EOSINOPHILS % (AUTO) 2.2 % (0-6); LYMPHOCYTES # (AUTO) 1.3 X10'3 (1.1-4.8); LYMPHOCYTES % (AUTO) 12.8 % (21-51); MEAN CORPUSCULAR HEMOGLOBIN 30.7 PG (27.0-31.0); MEAN CORPUSCULAR HGB CONC 34.5 g/dL (33.0-36.5); MONOCYTES # (AUTO) 0.7 X10'3 (0-0.9); MONOCYTES % (AUTO) 7.2 % (2-12); NEUTROPHILS # (AUTO) 7.6 X10'3 (1.8-7.7); NEUTROPHILS % (AUTO) 77.4 % (42-75); PRE OP HEMATOCRIT 40.5 % (42.0-52.0); PRE OP PLATELET COUNT 253 X10'3 (140-440); RED BLOOD COUNT 4.55 X10'6 (4.70-6.10); RED CELL DISTRIBUTION WIDTH 14.4 % (11.5-14.5)
[2019-10-10 16:21] LABS: PRE OP PROTIME 10.4 SECONDS (9.0-12.0)
[2019-10-10 16:24] LABS: ALBUMIN 4.4 G/DL (3.4-5.0); ALBUMIN/GLOBULIN RATIO 1.2 (1.1-1.5); ALKALINE PHOSPHATASE 80 IU/L (46-116); BLOOD UREA NITROGEN 29 MG/DL (7-18); BUN/CREATININE RATIO 16.8 (5.4-32.0); CALCIUM 9.9 MG/DL (8.5-10.1); CHLORIDE 106 MMOL/L (99-107); CREATININE 1.73 MG/DL (0.60-1.10); PRE OP ALT 29 U/L (30-65); PRE OP ANION GAP 12 (8-16); PRE OP AST 31 U/L (10-37); PRE OP BILIRUB, TOTAL 0.4 MG/DL (0.0-1.0); PRE OP GLUCOSE 108 MG/DL (70-104); PRE OP SODIUM 141 MMOL/L (135-145); TOTAL CARBON DIOXIDE 23.2 MMOL/L (24-32); eGFR 41 ML/MIN
[2019-10-11] VITALS (7 sets, daily range): BP systolic 117–145; BP diastolic 70–84
[~2019-10-11] VITALS: Ht 172.7 cm; Wt 126.0 kg
[~2019-10-11 07:24] MED LIST changes: +albuterol 2.5 MG/3 ML nebule NEB ONE; +clindamycin-Cleocin 900mg/D5W 50 ML IV ONE; +famotidine 20mg tablet PO ONE; +ringers solution, lacted 1,000 ML IV SCH
[2019-10-11] MEDS ORDERED: fentaNYL/PF 50MCG/1 ML 2ML syringe ONE (09:01)
[2019-10-11] MEDS ORDERED: midazolam 2 mg/2 ml injection ONE (09:01)
[2019-10-11] MEDS ORDERED: BUPIVAcaine/PF 2.5 mg/ml (0.25%) 30ml vial ONE (09:28)
[2019-10-11] MEDS ORDERED: LIDOcaine 1% w/epiNEPHrine 1:200,000 30ml vial ONE (09:28)
[2019-10-11] MEDS ORDERED: mineral oil 10ml sterile, topical TP ONE (09:28)
[2019-10-11] MEDS ORDERED: sevoflurane 250ml liquid IH ONE (09:53)
[2019-10-11] MEDS ORDERED: LIDOcaine 2% (20mg/ml) 5ml vial ONE (09:58)
[2019-10-11] MEDS ORDERED: propofol inj 20 ML IV ONE (09:58)
[2019-10-11] MEDS ORDERED: dexamethasone sod phosphate 4mg/ml inj. ONE (10:41)
[2019-10-11] MEDS ORDERED: ePHEDrine 50MG/ML INJ. ONE (10:41)
[2019-10-11] MEDS ORDERED: ondansetron/PF 4mg/2ml inj ONE (10:41)
--- NOTE | 2019-10-11 10:55 | NUR ---
Received from OR via BED , accompanied by Anesthesiologist DR DARNELL and report given by Anesthesiolgist. PATIENT WAKING UP, DENIES PAIN, V/S WNL, NEUROVASCULAR CHECKS INTACT, 20G PIV LUE, SCD ON, LARGE DRESSING TO ABDOMEN CDI AND ALSO GAUZE WRAPPED DRESSING TO RIGHT UPPER THIGH CDI.
[2019-10-11] MEDS ORDERED: ringers solution, lacted 1,000 ML IV SCH (11:01)
[2019-10-11] MEDS ORDERED: ondansetron/PF 4mg/2ml inj IV PRN (11:05)
[2019-10-11] MEDS ORDERED: meperidine/PF 25mg/ml syringe IV PRN ×3 (11:05)
[2019-10-11] MEDS ORDERED: proCHLORperazine 10 MG/2 ml inj IV PRN (11:05)
[2019-10-11] MEDS ORDERED: morphine 4 MG/ML inj SYRINge IV PRN ×2 (11:05)
--- NOTE | 2019-10-11 11:45 | NUR ---
PATIENT A&OX4, DENIES PAIN, V/S WNL, NEUROVASCULAR CHECKS INTACT, 20G PIV LUE D/C, SCD OFF, LARGE DRESSING TO ABDOMEN CDI AND ALSO GAUZE WRAPPED DRESSING TO RIGHT UPPER THIGH CDI.SCRIPT CALLED INTO [facility]. I HAVE REVIEWED D/C INSTRUCTIONS WITH PATIENT AND FAMILY AND THEY HAVE VERBALIZED UNDERSTANDING. PATIENT D/C HOME WITH ALL BELONGINGS AND FAMILY GAVE TRANSPORT HOME.
== END 2019-10-11 11:45 | disposition home or self-care (01) ==
LOC: PAS 07:24
PROVIDERS: ATTEND Surgery
DX: T81.89XA Other complications of procedures, not elsewhere classified, initial encounter (principal); J44.9 Chronic obstructive pulmonary disease, unspecified; G47.33 Obstructive sleep apnea (adult) (pediatric); G89.29 Other chronic pain; F43.10 Post-traumatic stress disorder, unspecified; F32.9 Major depressive disorder, single episode, unspecified; K21.9 Gastro-esophageal reflux disease without esophagitis; N40.0 Benign prostatic hyperplasia without lower urinary tract symptoms; I12.9 Hypertensive chronic kidney disease with stage 1 through stage 4 chronic kidney disease, or unspecified chronic kidney disease; N18.3 Chronic kidney disease, stage 3 (moderate); M10.9 Gout, unspecified; Z87.891 Personal history of nicotine dependence; Z86.14 Personal history of Methicillin resistant Staphylococcus aureus infection; Z96.653 Presence of artificial knee joint, bilateral; Z98.890 Other specified postprocedural states; Z90.49 Acquired absence of other specified parts of digestive tract; Z88.0 Allergy status to penicillin; Y83.8 Other surgical procedures as the cause of abnormal reaction of the patient, or of later complication, without mention of misadventure at the time of the procedure; Y92.89 Other specified places as the place of occurrence of the external cause; Z79.01 Long term (current) use of anticoagulants; Z79.899 Other long term (current) drug therapy
CPT/HCPCS: 15100; 36415; 71046; 80053; 81003; 82948; 85025; 85610; 85730; A6223; J1100; J2001; J2250; J2405; J2704; J3010; J3490; A4618; A6446; A6449; A7000; J7120

== ENCOUNTER 2019-10-14 08:10 | Day surgery (SDC) | payer MEDICARE, MEDICAID ==
[~2019-10-14 08:10] MED LIST changes: -FISH12002 PO; -albuterol 2.5 MG/3 ML nebule NEB ONE; -clindamycin-Cleocin 900mg/D5W 50 ML IV ONE; -famotidine 20mg tablet PO ONE; -ringers solution, lacted 1,000 ML IV SCH
== END 2019-10-14 10:25 | disposition home or self-care (01) ==
LOC: WOUND CARE 08:10
PROVIDERS: ATTEND Surgery
DX: T81.89XD Other complications of procedures, not elsewhere classified, subsequent encounter (principal); L98.492 Non-pressure chronic ulcer of skin of other sites with fat layer exposed; I12.9 Hypertensive chronic kidney disease with stage 1 through stage 4 chronic kidney disease, or unspecified chronic kidney disease; N18.3 Chronic kidney disease, stage 3 (moderate); J44.9 Chronic obstructive pulmonary disease, unspecified; K21.9 Gastro-esophageal reflux disease without esophagitis; M19.90 Unspecified osteoarthritis, unspecified site; M81.0 Age-related osteoporosis without current pathological fracture; E78.5 Hyperlipidemia, unspecified; N40.0 Benign prostatic hyperplasia without lower urinary tract symptoms; G89.4 Chronic pain syndrome; M10.9 Gout, unspecified; F41.9 Anxiety disorder, unspecified; F32.9 Major depressive disorder, single episode, unspecified; Z96.653 Presence of artificial knee joint, bilateral; Z79.899 Other long term (current) drug therapy; Z98.890 Other specified postprocedural states; Z90.49 Acquired absence of other specified parts of digestive tract; Z86.14 Personal history of Methicillin resistant Staphylococcus aureus infection; Z87.891 Personal history of nicotine dependence; Y83.8 Other surgical procedures as the cause of abnormal reaction of the patient, or of later complication, without mention of misadventure at the time of the procedure
CPT/HCPCS: G0283; G0463

== ENCOUNTER 2019-10-21 08:20 | Outpatient (CLI) | payer MEDICARE, MEDICAID | END 2019-10-21 10:30 | disposition home or self-care (01) | LOC: WOUND CARE 08:20 → EDSTATUS 08:30 → WOUND CARE 10:30 | PROVIDERS: ATTEND Surgery | DX: T81.89XD Other complications of procedures, not elsewhere classified, subsequent encounter (principal); L98.492 Non-pressure chronic ulcer of skin of other sites with fat layer exposed; I12.9 Hypertensive chronic kidney disease with stage 1 through stage 4 chronic kidney disease, or unspecified chronic kidney disease; N18.3 Chronic kidney disease, stage 3 (moderate); J44.9 Chronic obstructive pulmonary disease, unspecified; K21.9 Gastro-esophageal reflux disease without esophagitis; M19.90 Unspecified osteoarthritis, unspecified site; M81.0 Age-related osteoporosis without current pathological fracture; E78.5 Hyperlipidemia, unspecified; N40.0 Benign prostatic hyperplasia without lower urinary tract symptoms; G89.4 Chronic pain syndrome; M10.9 Gout, unspecified; F41.9 Anxiety disorder, unspecified; F32.9 Major depressive disorder, single episode, unspecified; Z96.653 Presence of artificial knee joint, bilateral; Z79.899 Other long term (current) drug therapy; Z98.890 Other specified postprocedural states; Z90.49 Acquired absence of other specified parts of digestive tract; Z86.14 Personal history of Methicillin resistant Staphylococcus aureus infection; Z87.891 Personal history of nicotine dependence; Y83.8 Other surgical procedures as the cause of abnormal reaction of the patient, or of later complication, without mention of misadventure at the time of the procedure | CPT/HCPCS: G0463 ==

== ENCOUNTER 2019-10-28 08:10 | Day surgery (SDC) | payer MEDICARE, MEDICAID | END 2019-10-28 10:04 | disposition home or self-care (01) | LOC: WOUND CARE 08:10 | PROVIDERS: ATTEND Surgery | DX: T81.89XD Other complications of procedures, not elsewhere classified, subsequent encounter (principal); L98.492 Non-pressure chronic ulcer of skin of other sites with fat layer exposed; I12.9 Hypertensive chronic kidney disease with stage 1 through stage 4 chronic kidney disease, or unspecified chronic kidney disease; N18.3 Chronic kidney disease, stage 3 (moderate); J44.9 Chronic obstructive pulmonary disease, unspecified; K21.9 Gastro-esophageal reflux disease without esophagitis; M19.90 Unspecified osteoarthritis, unspecified site; M81.0 Age-related osteoporosis without current pathological fracture; E78.5 Hyperlipidemia, unspecified; N40.0 Benign prostatic hyperplasia without lower urinary tract symptoms; G89.4 Chronic pain syndrome; M10.9 Gout, unspecified; F41.9 Anxiety disorder, unspecified; F32.9 Major depressive disorder, single episode, unspecified; Z96.653 Presence of artificial knee joint, bilateral; Z79.899 Other long term (current) drug therapy; Z98.890 Other specified postprocedural states; Z90.49 Acquired absence of other specified parts of digestive tract; Z86.14 Personal history of Methicillin resistant Staphylococcus aureus infection; Z87.891 Personal history of nicotine dependence; Y83.8 Other surgical procedures as the cause of abnormal reaction of the patient, or of later complication, without mention of misadventure at the time of the procedure | CPT/HCPCS: 97597 ==

== ENCOUNTER 2019-11-04 08:10 | Day surgery (SDC) | payer MEDICARE, MEDICAID ==
[2019-11-04] MEDS ORDERED: LIDOcaine/PRILOcaine 5gm cream TP ONE (08:40)
== END 2019-11-04 09:54 | disposition home or self-care (01) ==
LOC: WOUND CARE 08:10
PROVIDERS: ATTEND Surgery
DX: T81.89XD Other complications of procedures, not elsewhere classified, subsequent encounter (principal); L98.492 Non-pressure chronic ulcer of skin of other sites with fat layer exposed; I12.9 Hypertensive chronic kidney disease with stage 1 through stage 4 chronic kidney disease, or unspecified chronic kidney disease; N18.3 Chronic kidney disease, stage 3 (moderate); J44.9 Chronic obstructive pulmonary disease, unspecified; K21.9 Gastro-esophageal reflux disease without esophagitis; M19.90 Unspecified osteoarthritis, unspecified site; M81.0 Age-related osteoporosis without current pathological fracture; E78.5 Hyperlipidemia, unspecified; N40.0 Benign prostatic hyperplasia without lower urinary tract symptoms; G89.4 Chronic pain syndrome; M10.9 Gout, unspecified; F41.9 Anxiety disorder, unspecified; F32.9 Major depressive disorder, single episode, unspecified; Z96.653 Presence of artificial knee joint, bilateral; Z79.899 Other long term (current) drug therapy; Z98.890 Other specified postprocedural states; Z90.49 Acquired absence of other specified parts of digestive tract; Z86.14 Personal history of Methicillin resistant Staphylococcus aureus infection; Z87.891 Personal history of nicotine dependence; Y83.8 Other surgical procedures as the cause of abnormal reaction of the patient, or of later complication, without mention of misadventure at the time of the procedure
CPT/HCPCS: 97597; A4663; A6021; A6258

== ENCOUNTER 2019-11-11 08:00 | Day surgery (SDC) | payer MEDICARE, MEDICAID ==
[2019-11-11] MEDS ORDERED: LIDOcaine/PRILOcaine 5gm cream TP ONE (08:55)
== END 2019-11-11 10:04 | disposition home or self-care (01) ==
LOC: WOUND CARE 08:00
PROVIDERS: ATTEND Surgery
DX: T81.89XD Other complications of procedures, not elsewhere classified, subsequent encounter (principal); L98.492 Non-pressure chronic ulcer of skin of other sites with fat layer exposed; I12.9 Hypertensive chronic kidney disease with stage 1 through stage 4 chronic kidney disease, or unspecified chronic kidney disease; N18.3 Chronic kidney disease, stage 3 (moderate); J44.9 Chronic obstructive pulmonary disease, unspecified; K21.9 Gastro-esophageal reflux disease without esophagitis; M19.90 Unspecified osteoarthritis, unspecified site; M81.0 Age-related osteoporosis without current pathological fracture; E78.5 Hyperlipidemia, unspecified; N40.0 Benign prostatic hyperplasia without lower urinary tract symptoms; G89.4 Chronic pain syndrome; M10.9 Gout, unspecified; F41.9 Anxiety disorder, unspecified; F32.9 Major depressive disorder, single episode, unspecified; Z96.653 Presence of artificial knee joint, bilateral; Z79.899 Other long term (current) drug therapy; Z98.890 Other specified postprocedural states; Z90.49 Acquired absence of other specified parts of digestive tract; Z86.14 Personal history of Methicillin resistant Staphylococcus aureus infection; Z87.891 Personal history of nicotine dependence; Y83.8 Other surgical procedures as the cause of abnormal reaction of the patient, or of later complication, without mention of misadventure at the time of the procedure
CPT/HCPCS: 97597; 97598; A4663; A6021; A6154; A6258

== ENCOUNTER 2019-11-18 08:04 | Day surgery (SDC) | payer MEDICARE, MEDICAID ==
[2019-11-18] MEDS ORDERED: LIDOcaine/PRILOcaine 5gm cream TP ONE (08:59)
== END 2019-11-18 11:05 | disposition home or self-care (01) ==
LOC: WOUND CARE 08:04
PROVIDERS: ATTEND Surgery
DX: T81.89XD Other complications of procedures, not elsewhere classified, subsequent encounter (principal); L98.492 Non-pressure chronic ulcer of skin of other sites with fat layer exposed; I12.9 Hypertensive chronic kidney disease with stage 1 through stage 4 chronic kidney disease, or unspecified chronic kidney disease; N18.3 Chronic kidney disease, stage 3 (moderate); J44.9 Chronic obstructive pulmonary disease, unspecified; K21.9 Gastro-esophageal reflux disease without esophagitis; M19.90 Unspecified osteoarthritis, unspecified site; M81.0 Age-related osteoporosis without current pathological fracture; E78.5 Hyperlipidemia, unspecified; N40.0 Benign prostatic hyperplasia without lower urinary tract symptoms; G89.4 Chronic pain syndrome; M10.9 Gout, unspecified; F41.9 Anxiety disorder, unspecified; F32.9 Major depressive disorder, single episode, unspecified; Z96.653 Presence of artificial knee joint, bilateral; Z79.899 Other long term (current) drug therapy; Z98.890 Other specified postprocedural states; Z90.49 Acquired absence of other specified parts of digestive tract; Z86.14 Personal history of Methicillin resistant Staphylococcus aureus infection; Z87.891 Personal history of nicotine dependence; Y83.8 Other surgical procedures as the cause of abnormal reaction of the patient, or of later complication, without mention of misadventure at the time of the procedure
CPT/HCPCS: 97597; 97598

== ENCOUNTER 2019-12-06 08:20 | Day surgery (SDC) | payer MEDICARE, MEDICAID ==
[2019-12-06] MEDS ORDERED: LIDOcaine 2% 5ml jelly ONE (08:47)
== END 2019-12-06 09:20 | disposition home or self-care (01) ==
LOC: WOUND CARE 08:20
PROVIDERS: ATTEND Nurse Practitioner Family
DX: T81.89XD Other complications of procedures, not elsewhere classified, subsequent encounter (principal); L98.492 Non-pressure chronic ulcer of skin of other sites with fat layer exposed; I12.9 Hypertensive chronic kidney disease with stage 1 through stage 4 chronic kidney disease, or unspecified chronic kidney disease; N18.3 Chronic kidney disease, stage 3 (moderate); J44.9 Chronic obstructive pulmonary disease, unspecified; K21.9 Gastro-esophageal reflux disease without esophagitis; M19.90 Unspecified osteoarthritis, unspecified site; M81.0 Age-related osteoporosis without current pathological fracture; E78.5 Hyperlipidemia, unspecified; N40.0 Benign prostatic hyperplasia without lower urinary tract symptoms; G89.4 Chronic pain syndrome; M10.9 Gout, unspecified; F41.9 Anxiety disorder, unspecified; F32.9 Major depressive disorder, single episode, unspecified; Z96.653 Presence of artificial knee joint, bilateral; Z79.899 Other long term (current) drug therapy; Z98.890 Other specified postprocedural states; Z90.49 Acquired absence of other specified parts of digestive tract; Z86.14 Personal history of Methicillin resistant Staphylococcus aureus infection; Z87.891 Personal history of nicotine dependence; Y83.8 Other surgical procedures as the cause of abnormal reaction of the patient, or of later complication, without mention of misadventure at the time of the procedure
CPT/HCPCS: 97597

== ENCOUNTER 2019-12-20 08:22 | Day surgery (SDC) | payer MEDICARE, MEDICAID ==
[2019-12-20] MEDS ORDERED: LIDOcaine 2% 5ml jelly ONE (08:36)
== END 2019-12-20 08:55 | disposition home or self-care (01) ==
LOC: WOUND CARE 08:22
PROVIDERS: ATTEND Nurse Practitioner Family
DX: T81.89XD Other complications of procedures, not elsewhere classified, subsequent encounter (principal); L98.492 Non-pressure chronic ulcer of skin of other sites with fat layer exposed; I12.9 Hypertensive chronic kidney disease with stage 1 through stage 4 chronic kidney disease, or unspecified chronic kidney disease; N18.3 Chronic kidney disease, stage 3 (moderate); J44.9 Chronic obstructive pulmonary disease, unspecified; K21.9 Gastro-esophageal reflux disease without esophagitis; M19.90 Unspecified osteoarthritis, unspecified site; M81.0 Age-related osteoporosis without current pathological fracture; E78.5 Hyperlipidemia, unspecified; N40.0 Benign prostatic hyperplasia without lower urinary tract symptoms; G89.4 Chronic pain syndrome; M10.9 Gout, unspecified; F41.9 Anxiety disorder, unspecified; F32.9 Major depressive disorder, single episode, unspecified; Z96.653 Presence of artificial knee joint, bilateral; Z79.899 Other long term (current) drug therapy; Z98.890 Other specified postprocedural states; Z90.49 Acquired absence of other specified parts of digestive tract; Z86.14 Personal history of Methicillin resistant Staphylococcus aureus infection; Z87.891 Personal history of nicotine dependence; Y83.8 Other surgical procedures as the cause of abnormal reaction of the patient, or of later complication, without mention of misadventure at the time of the procedure
CPT/HCPCS: 97597

== ENCOUNTER 2019-12-27 08:10 | Day surgery (SDC) | payer MEDICARE, MEDICAID ==
[2019-12-27] MEDS ORDERED: LIDOcaine 2% 5ml jelly ONE (08:33)
== END 2019-12-27 09:05 | disposition home or self-care (01) ==
LOC: WOUND CARE 08:10
PROVIDERS: ATTEND Nurse Practitioner Family
DX: T81.89XD Other complications of procedures, not elsewhere classified, subsequent encounter (principal); L98.492 Non-pressure chronic ulcer of skin of other sites with fat layer exposed; I12.9 Hypertensive chronic kidney disease with stage 1 through stage 4 chronic kidney disease, or unspecified chronic kidney disease; N18.3 Chronic kidney disease, stage 3 (moderate); J44.9 Chronic obstructive pulmonary disease, unspecified; K21.9 Gastro-esophageal reflux disease without esophagitis; M19.90 Unspecified osteoarthritis, unspecified site; M81.0 Age-related osteoporosis without current pathological fracture; E78.5 Hyperlipidemia, unspecified; N40.0 Benign prostatic hyperplasia without lower urinary tract symptoms; G89.4 Chronic pain syndrome; M10.9 Gout, unspecified; F41.9 Anxiety disorder, unspecified; F32.9 Major depressive disorder, single episode, unspecified; Z96.653 Presence of artificial knee joint, bilateral; Z79.899 Other long term (current) drug therapy; Z98.890 Other specified postprocedural states; Z90.49 Acquired absence of other specified parts of digestive tract; Z86.14 Personal history of Methicillin resistant Staphylococcus aureus infection; Z87.891 Personal history of nicotine dependence; Y83.8 Other surgical procedures as the cause of abnormal reaction of the patient, or of later complication, without mention of misadventure at the time of the procedure
CPT/HCPCS: 97597

== ENCOUNTER 2020-01-02 08:10 | Day surgery (SDC) | payer MEDICARE, MEDICAID ==
[2020-01-02] MEDS ORDERED: LIDOcaine 2% 5ml jelly ONE (08:27)
== END 2020-01-02 09:14 | disposition home or self-care (01) ==
LOC: WOUND CARE 08:10
PROVIDERS: ATTEND Nurse Practitioner
DX: T81.89XD Other complications of procedures, not elsewhere classified, subsequent encounter (principal); L98.492 Non-pressure chronic ulcer of skin of other sites with fat layer exposed; I12.9 Hypertensive chronic kidney disease with stage 1 through stage 4 chronic kidney disease, or unspecified chronic kidney disease; N18.3 Chronic kidney disease, stage 3 (moderate); J44.9 Chronic obstructive pulmonary disease, unspecified; K21.9 Gastro-esophageal reflux disease without esophagitis; M19.90 Unspecified osteoarthritis, unspecified site; M81.0 Age-related osteoporosis without current pathological fracture; E78.5 Hyperlipidemia, unspecified; N40.0 Benign prostatic hyperplasia without lower urinary tract symptoms; G89.4 Chronic pain syndrome; M10.9 Gout, unspecified; F41.9 Anxiety disorder, unspecified; F32.9 Major depressive disorder, single episode, unspecified; Z96.653 Presence of artificial knee joint, bilateral; Z79.899 Other long term (current) drug therapy; Z98.890 Other specified postprocedural states; Z90.49 Acquired absence of other specified parts of digestive tract; Z86.14 Personal history of Methicillin resistant Staphylococcus aureus infection; Z87.891 Personal history of nicotine dependence; Y83.8 Other surgical procedures as the cause of abnormal reaction of the patient, or of later complication, without mention of misadventure at the time of the procedure
CPT/HCPCS: 97597; 97598

== ENCOUNTER 2020-01-05 08:43 | Day surgery (SDC) | payer MEDICARE, MEDICAID ==
[2020-01-05] MEDS ORDERED: LIDOcaine 2% 5ml jelly ONE (09:02)
== END 2020-01-05 09:33 | disposition home or self-care (01) ==
LOC: WOUND CARE 08:43
PROVIDERS: ATTEND Nurse Practitioner
DX: T81.89XD Other complications of procedures, not elsewhere classified, subsequent encounter (principal); L98.492 Non-pressure chronic ulcer of skin of other sites with fat layer exposed; I12.9 Hypertensive chronic kidney disease with stage 1 through stage 4 chronic kidney disease, or unspecified chronic kidney disease; N18.3 Chronic kidney disease, stage 3 (moderate); J44.9 Chronic obstructive pulmonary disease, unspecified; K21.9 Gastro-esophageal reflux disease without esophagitis; M19.90 Unspecified osteoarthritis, unspecified site; M81.0 Age-related osteoporosis without current pathological fracture; E78.5 Hyperlipidemia, unspecified; N40.0 Benign prostatic hyperplasia without lower urinary tract symptoms; G89.4 Chronic pain syndrome; M10.9 Gout, unspecified; F41.9 Anxiety disorder, unspecified; F32.9 Major depressive disorder, single episode, unspecified; Z96.653 Presence of artificial knee joint, bilateral; Z79.899 Other long term (current) drug therapy; Z98.890 Other specified postprocedural states; Z90.49 Acquired absence of other specified parts of digestive tract; Z86.14 Personal history of Methicillin resistant Staphylococcus aureus infection; Z87.891 Personal history of nicotine dependence; Y83.8 Other surgical procedures as the cause of abnormal reaction of the patient, or of later complication, without mention of misadventure at the time of the procedure
CPT/HCPCS: 97597; 97598

== ENCOUNTER 2020-01-10 08:00 | Day surgery (SDC) | payer MEDICARE, MEDICAID ==
[2020-01-10] MEDS ORDERED: LIDOcaine 2% 5ml jelly ONE (08:36)
== END 2020-01-10 09:08 | disposition home or self-care (01) ==
LOC: WOUND CARE 08:00
PROVIDERS: ATTEND Nurse Practitioner Family
DX: T81.89XD Other complications of procedures, not elsewhere classified, subsequent encounter (principal); L98.492 Non-pressure chronic ulcer of skin of other sites with fat layer exposed; I12.9 Hypertensive chronic kidney disease with stage 1 through stage 4 chronic kidney disease, or unspecified chronic kidney disease; N18.3 Chronic kidney disease, stage 3 (moderate); J44.9 Chronic obstructive pulmonary disease, unspecified; K21.9 Gastro-esophageal reflux disease without esophagitis; M19.90 Unspecified osteoarthritis, unspecified site; M81.0 Age-related osteoporosis without current pathological fracture; E78.5 Hyperlipidemia, unspecified; N40.0 Benign prostatic hyperplasia without lower urinary tract symptoms; G89.4 Chronic pain syndrome; M10.9 Gout, unspecified; F41.9 Anxiety disorder, unspecified; F32.9 Major depressive disorder, single episode, unspecified; Z96.653 Presence of artificial knee joint, bilateral; Z79.899 Other long term (current) drug therapy; Z98.890 Other specified postprocedural states; Z90.49 Acquired absence of other specified parts of digestive tract; Z86.14 Personal history of Methicillin resistant Staphylococcus aureus infection; Z87.891 Personal history of nicotine dependence; Y83.8 Other surgical procedures as the cause of abnormal reaction of the patient, or of later complication, without mention of misadventure at the time of the procedure
CPT/HCPCS: 97597

== ENCOUNTER 2020-01-17 08:10 | Outpatient (CLI) | payer MEDICARE, MEDICAID ==
[2020-01-17] MEDS ORDERED: LIDOcaine 2% 5ml jelly ONE (08:46)
[2020-01-17 09:29] LABS: BASOPHILS % (AUTO) 0.2 % (0-1); EOSINOPHILS # (AUTO) 0.2 X10'3 (0-0.9); EOSINOPHILS % (AUTO) 2.8 % (0-6); LYMPHOCYTES # (AUTO) 1.3 X10'3 (1.1-4.8); LYMPHOCYTES % (AUTO) 18.4 % (21-51); MEAN CORPUSCULAR HEMOGLOBIN 30.5 PG (27.0-31.0); MEAN CORPUSCULAR HGB CONC 33.3 g/dL (33.0-36.5); MEAN CORPUSCULAR VOLUME 91.7 FL (78-98); MEAN PLATELET VOLUME 8.2 FL (7.4-10.4); MONOCYTES # (AUTO) 0.6 X10'3 (0-0.9); MONOCYTES % (AUTO) 8.1 % (2-12); NEUTROPHILS # (AUTO) 5.1 X10'3 (1.8-7.7); NEUTROPHILS % (AUTO) 70.5 % (42-75); PRE OP HEMOGLOBIN 13.3 g/dL (14.0-17.9); PRE OP PLATELET COUNT 275 X10'3 (140-440); RED BLOOD COUNT 4.36 X10'6 (4.70-6.10); RED CELL DISTRIBUTION WIDTH 13.1 % (11.5-14.5)
[2020-01-17 09:31] LABS: ALBUMIN 3.7 G/DL (3.4-5.0); ALKALINE PHOSPHATASE 68 IU/L (46-116); BLOOD UREA NITROGEN 17 MG/DL (7-18); BUN/CREATININE RATIO 12.6 (5.4-32.0); CALCIUM 9.1 MG/DL (8.5-10.1); CHLORIDE 107 MMOL/L (99-107); CREATININE 1.35 MG/DL (0.60-1.10); PRE OP ALT 20 U/L (30-65); PRE OP ANION GAP 6 (8-16); PRE OP AST 21 U/L (10-37); PRE OP BILIRUB, TOTAL 0.3 MG/DL (0.0-1.0); PRE OP GLUCOSE 99 MG/DL (70-104); PRE OP SODIUM 139 MMOL/L (135-145); TOTAL CARBON DIOXIDE 26.3 MMOL/L (24-32); TOTAL PROTEIN 7.3 G/DL (6.4-8.2); eGFR 55 ML/MIN
[2020-01-17 09:32] LABS: PRE OP POTASSIUM 4.6 MMOL/L (3.4-5.1)
== END 2020-01-17 09:22 | disposition home or self-care (01) ==
LOC: WOUND CARE 08:10 → EDSTATUS 08:20 → WOUND CARE 09:22
PROVIDERS: ATTEND Nurse Practitioner Family
DX: T81.89XD Other complications of procedures, not elsewhere classified, subsequent encounter (principal); L98.492 Non-pressure chronic ulcer of skin of other sites with fat layer exposed; I12.9 Hypertensive chronic kidney disease with stage 1 through stage 4 chronic kidney disease, or unspecified chronic kidney disease; N18.3 Chronic kidney disease, stage 3 (moderate); J44.9 Chronic obstructive pulmonary disease, unspecified; K21.9 Gastro-esophageal reflux disease without esophagitis; M19.90 Unspecified osteoarthritis, unspecified site; M81.0 Age-related osteoporosis without current pathological fracture; E78.5 Hyperlipidemia, unspecified; N40.0 Benign prostatic hyperplasia without lower urinary tract symptoms; G89.4 Chronic pain syndrome; M10.9 Gout, unspecified; F41.9 Anxiety disorder, unspecified; F32.9 Major depressive disorder, single episode, unspecified; Z96.653 Presence of artificial knee joint, bilateral; Z79.899 Other long term (current) drug therapy; Z98.890 Other specified postprocedural states; Z90.49 Acquired absence of other specified parts of digestive tract; Z86.14 Personal history of Methicillin resistant Staphylococcus aureus infection; Z87.891 Personal history of nicotine dependence; Y83.8 Other surgical procedures as the cause of abnormal reaction of the patient, or of later complication, without mention of misadventure at the time of the procedure
CPT/HCPCS: 36415; 80053; 85025; 93005; 97597; U0003

== ENCOUNTER 2020-02-07 09:35 | Day surgery (SDC) | payer MEDICARE, MEDICAID ==
[~2020-02-07 09:35] MED LIST changes: -NUGENIX PO
[2020-02-07] MEDS ORDERED: LIDOcaine 2% 5ml jelly ONE ×2 (10:05)
== END 2020-02-07 11:20 | disposition home or self-care (01) ==
LOC: WOUND CARE 09:35
PROVIDERS: ATTEND Nurse Practitioner
DX: T81.89XD Other complications of procedures, not elsewhere classified, subsequent encounter (principal); L98.492 Non-pressure chronic ulcer of skin of other sites with fat layer exposed; I12.9 Hypertensive chronic kidney disease with stage 1 through stage 4 chronic kidney disease, or unspecified chronic kidney disease; N18.3 Chronic kidney disease, stage 3 (moderate); J44.9 Chronic obstructive pulmonary disease, unspecified; K21.9 Gastro-esophageal reflux disease without esophagitis; M19.90 Unspecified osteoarthritis, unspecified site; M81.0 Age-related osteoporosis without current pathological fracture; E78.5 Hyperlipidemia, unspecified; N40.0 Benign prostatic hyperplasia without lower urinary tract symptoms; G89.4 Chronic pain syndrome; M10.9 Gout, unspecified; F41.9 Anxiety disorder, unspecified; F32.9 Major depressive disorder, single episode, unspecified; Z96.653 Presence of artificial knee joint, bilateral; Z79.899 Other long term (current) drug therapy; Z98.890 Other specified postprocedural states; Z90.49 Acquired absence of other specified parts of digestive tract; Z86.14 Personal history of Methicillin resistant Staphylococcus aureus infection; Z87.891 Personal history of nicotine dependence; Y83.8 Other surgical procedures as the cause of abnormal reaction of the patient, or of later complication, without mention of misadventure at the time of the procedure
CPT/HCPCS: 97597; 97598

== ENCOUNTER 2020-02-14 13:05 | Day surgery (SDC) | payer MEDICARE, MEDICAID ==
[2020-02-14] MEDS ORDERED: LIDOcaine 2% 5ml jelly ONE ×2 (13:25)
== END 2020-02-14 14:12 | disposition home or self-care (01) ==
LOC: WOUND CARE 13:05
PROVIDERS: ATTEND Nurse Practitioner
DX: T81.89XD Other complications of procedures, not elsewhere classified, subsequent encounter (principal); L98.492 Non-pressure chronic ulcer of skin of other sites with fat layer exposed; I12.9 Hypertensive chronic kidney disease with stage 1 through stage 4 chronic kidney disease, or unspecified chronic kidney disease; N18.3 Chronic kidney disease, stage 3 (moderate); J44.9 Chronic obstructive pulmonary disease, unspecified; K21.9 Gastro-esophageal reflux disease without esophagitis; M19.90 Unspecified osteoarthritis, unspecified site; M81.0 Age-related osteoporosis without current pathological fracture; E78.5 Hyperlipidemia, unspecified; N40.0 Benign prostatic hyperplasia without lower urinary tract symptoms; G89.4 Chronic pain syndrome; M10.9 Gout, unspecified; F41.9 Anxiety disorder, unspecified; F32.9 Major depressive disorder, single episode, unspecified; Z96.653 Presence of artificial knee joint, bilateral; Z79.899 Other long term (current) drug therapy; Z98.890 Other specified postprocedural states; Z90.49 Acquired absence of other specified parts of digestive tract; Z86.14 Personal history of Methicillin resistant Staphylococcus aureus infection; Z87.891 Personal history of nicotine dependence; Y83.8 Other surgical procedures as the cause of abnormal reaction of the patient, or of later complication, without mention of misadventure at the time of the procedure
CPT/HCPCS: 97597; 97598

== ENCOUNTER 2020-02-21 08:20 | Day surgery (SDC) | payer MEDICARE, MEDICAID ==
[2020-02-21] MEDS ORDERED: LIDOcaine 2% 5ml jelly ONE (08:54)
== END 2020-02-21 11:03 | disposition home or self-care (01) ==
LOC: WOUND CARE 08:20
PROVIDERS: ATTEND Nurse Practitioner
DX: T81.89XD Other complications of procedures, not elsewhere classified, subsequent encounter (principal); L98.492 Non-pressure chronic ulcer of skin of other sites with fat layer exposed; I12.9 Hypertensive chronic kidney disease with stage 1 through stage 4 chronic kidney disease, or unspecified chronic kidney disease; N18.3 Chronic kidney disease, stage 3 (moderate); J44.9 Chronic obstructive pulmonary disease, unspecified; K21.9 Gastro-esophageal reflux disease without esophagitis; M19.90 Unspecified osteoarthritis, unspecified site; M81.0 Age-related osteoporosis without current pathological fracture; E78.5 Hyperlipidemia, unspecified; N40.0 Benign prostatic hyperplasia without lower urinary tract symptoms; G89.4 Chronic pain syndrome; M10.9 Gout, unspecified; F41.9 Anxiety disorder, unspecified; F32.9 Major depressive disorder, single episode, unspecified; Z96.653 Presence of artificial knee joint, bilateral; Z79.899 Other long term (current) drug therapy; Z98.890 Other specified postprocedural states; Z90.49 Acquired absence of other specified parts of digestive tract; Z86.14 Personal history of Methicillin resistant Staphylococcus aureus infection; Z87.891 Personal history of nicotine dependence; Y83.8 Other surgical procedures as the cause of abnormal reaction of the patient, or of later complication, without mention of misadventure at the time of the procedure
CPT/HCPCS: 97597; 97598

== ENCOUNTER 2020-02-28 08:18 | Day surgery (SDC) | payer MEDICARE, MEDICAID ==
[2020-02-28] MEDS ORDERED: LIDOcaine 2% 5ml jelly ONE (08:33)
== END 2020-02-28 10:50 | disposition home or self-care (01) ==
LOC: WOUND CARE 08:18
PROVIDERS: ATTEND Nurse Practitioner
DX: T81.89XD Other complications of procedures, not elsewhere classified, subsequent encounter (principal); L98.492 Non-pressure chronic ulcer of skin of other sites with fat layer exposed; I12.9 Hypertensive chronic kidney disease with stage 1 through stage 4 chronic kidney disease, or unspecified chronic kidney disease; N18.3 Chronic kidney disease, stage 3 (moderate); J44.9 Chronic obstructive pulmonary disease, unspecified; K21.9 Gastro-esophageal reflux disease without esophagitis; M19.90 Unspecified osteoarthritis, unspecified site; M81.0 Age-related osteoporosis without current pathological fracture; E78.5 Hyperlipidemia, unspecified; N40.0 Benign prostatic hyperplasia without lower urinary tract symptoms; G89.4 Chronic pain syndrome; M10.9 Gout, unspecified; F41.9 Anxiety disorder, unspecified; F32.9 Major depressive disorder, single episode, unspecified; Z96.653 Presence of artificial knee joint, bilateral; Z79.899 Other long term (current) drug therapy; Z98.890 Other specified postprocedural states; Z90.49 Acquired absence of other specified parts of digestive tract; Z86.14 Personal history of Methicillin resistant Staphylococcus aureus infection; Z87.891 Personal history of nicotine dependence; Y83.8 Other surgical procedures as the cause of abnormal reaction of the patient, or of later complication, without mention of misadventure at the time of the procedure
CPT/HCPCS: 97597; 97598

== ENCOUNTER 2020-03-06 08:15 | Day surgery (SDC) | payer MEDICARE, MEDICAID ==
[2020-03-06] MEDS ORDERED: LIDOcaine 2% 5ml jelly ONE (08:50)
== END 2020-03-06 09:35 | disposition home or self-care (01) ==
LOC: WOUND CARE 08:15
PROVIDERS: ATTEND Nurse Practitioner
DX: T81.89XD Other complications of procedures, not elsewhere classified, subsequent encounter (principal); L98.492 Non-pressure chronic ulcer of skin of other sites with fat layer exposed; I12.9 Hypertensive chronic kidney disease with stage 1 through stage 4 chronic kidney disease, or unspecified chronic kidney disease; N18.3 Chronic kidney disease, stage 3 (moderate); J44.9 Chronic obstructive pulmonary disease, unspecified; K21.9 Gastro-esophageal reflux disease without esophagitis; M19.90 Unspecified osteoarthritis, unspecified site; M81.0 Age-related osteoporosis without current pathological fracture; E78.5 Hyperlipidemia, unspecified; N40.0 Benign prostatic hyperplasia without lower urinary tract symptoms; G89.4 Chronic pain syndrome; M10.9 Gout, unspecified; F41.9 Anxiety disorder, unspecified; F32.9 Major depressive disorder, single episode, unspecified; Z96.653 Presence of artificial knee joint, bilateral; Z79.899 Other long term (current) drug therapy; Z98.890 Other specified postprocedural states; Z90.49 Acquired absence of other specified parts of digestive tract; Z86.14 Personal history of Methicillin resistant Staphylococcus aureus infection; Z87.891 Personal history of nicotine dependence; Y83.8 Other surgical procedures as the cause of abnormal reaction of the patient, or of later complication, without mention of misadventure at the time of the procedure
CPT/HCPCS: 97597; 97598

== ENCOUNTER 2020-03-13 08:05 | Day surgery (SDC) | payer MEDICARE, MEDICAID ==
[2020-03-13] MEDS ORDERED: LIDOcaine 2% 5ml jelly ONE (08:40)
[2020-03-13 09:07] LABS: BASOPHILS % (AUTO) 0.3 % (0-1); EOSINOPHILS # (AUTO) 0.2 X10'3 (0-0.9); EOSINOPHILS % (AUTO) 3.7 % (0-6); LYMPHOCYTES % (AUTO) 16.8 % (21-51); MEAN CORPUSCULAR HEMOGLOBIN 29.9 PG (27.0-31.0); MEAN CORPUSCULAR HGB CONC 33.4 g/dL (33.0-36.5); MEAN CORPUSCULAR VOLUME 89.4 FL (78-98); MEAN PLATELET VOLUME 7.6 FL (7.4-10.4); MONOCYTES # (AUTO) 0.5 X10'3 (0-0.9); MONOCYTES % (AUTO) 8.8 % (2-12); NEUTROPHILS # (AUTO) 4.2 X10'3 (1.8-7.7); NEUTROPHILS % (AUTO) 70.4 % (42-75); PRE OP HEMATOCRIT 33.5 % (42.0-52.0); PRE OP HEMOGLOBIN 11.2 g/dL (14.0-17.9); PRE OP PLATELET COUNT 285 X10'3 (140-440); RED BLOOD COUNT 3.75 X10'6 (4.70-6.10); RED CELL DISTRIBUTION WIDTH 13.8 % (11.5-14.5)
[2020-03-13 09:18] LABS: ALBUMIN/GLOBULIN RATIO 0.7 (1.1-1.5); ALKALINE PHOSPHATASE 81 IU/L (46-116); BLOOD UREA NITROGEN 22 MG/DL (7-18); BUN/CREATININE RATIO 13.4 (5.4-32.0); CALCIUM 8.5 MG/DL (8.5-10.1); CHLORIDE 108 MMOL/L (99-107); CREATININE 1.64 MG/DL (0.60-1.10); PRE OP ALT 16 U/L (30-65); PRE OP ANION GAP 10 (8-16); PRE OP AST 12 U/L (10-37); PRE OP BILIRUB, TOTAL 0.2 MG/DL (0.0-1.0); PRE OP GLUCOSE 169 MG/DL (70-104); PRE OP POTASSIUM 4.5 MMOL/L (3.4-5.1); PRE OP SODIUM 140 MMOL/L (135-145); TOTAL CARBON DIOXIDE 22.4 MMOL/L (24-32); TOTAL PROTEIN 7.2 G/DL (6.4-8.2); eGFR 44 ML/MIN
== END 2020-03-13 09:22 | disposition home or self-care (01) ==
LOC: WOUND CARE 08:05
PROVIDERS: ATTEND Nurse Practitioner
DX: T81.89XD Other complications of procedures, not elsewhere classified, subsequent encounter (principal); L98.492 Non-pressure chronic ulcer of skin of other sites with fat layer exposed; I12.9 Hypertensive chronic kidney disease with stage 1 through stage 4 chronic kidney disease, or unspecified chronic kidney disease; N18.3 Chronic kidney disease, stage 3 (moderate); J44.9 Chronic obstructive pulmonary disease, unspecified; K21.9 Gastro-esophageal reflux disease without esophagitis; M19.90 Unspecified osteoarthritis, unspecified site; M81.0 Age-related osteoporosis without current pathological fracture; E78.5 Hyperlipidemia, unspecified; N40.0 Benign prostatic hyperplasia without lower urinary tract symptoms; G89.4 Chronic pain syndrome; M10.9 Gout, unspecified; E78.2 Mixed hyperlipidemia; F41.9 Anxiety disorder, unspecified; F32.9 Major depressive disorder, single episode, unspecified; Z96.653 Presence of artificial knee joint, bilateral; Z79.899 Other long term (current) drug therapy; Z98.890 Other specified postprocedural states; Z90.49 Acquired absence of other specified parts of digestive tract; Z86.14 Personal history of Methicillin resistant Staphylococcus aureus infection; Z87.891 Personal history of nicotine dependence; Y83.8 Other surgical procedures as the cause of abnormal reaction of the patient, or of later complication, without mention of misadventure at the time of the procedure
CPT/HCPCS: 36415; 80053; 85025; 97597; 97598; U0003

== ENCOUNTER 2020-03-21 06:22 | Inpatient (IN) | payer MEDICARE, MEDICAID ==
[~2020-03-21] VITALS: Ht 172.7 cm; Wt 122.0 kg
[2020-03-21] VITALS (22 sets, daily range): BP systolic 110–166; BP diastolic 55–88
[~2020-03-21 06:22] MED LIST changes: +DOCUMENT DATE & TIME OF BETA-BLOCKER PO ONE; +albuterol 2.5 MG/3 ML nebule NEB ONE; +clindamycin-Cleocin 900mg/D5W 50 ML IV ONE; +famotidine 20mg tablet PO ONE; +ringers solution, lacted 1,000 ML IV SCH
[2020-03-21] MEDS ORDERED: epiNEPHrine 1 mg/ml inj ONE (09:03)
[2020-03-21] MEDS ORDERED: mineral oil 10ml sterile, topical TP ONE ×2 (09:03→09:39)
[2020-03-21] MEDS ORDERED: LIDOcaine 1% W/epiNEPHrine 1:100,000 20ml vial ONE (09:04)
[2020-03-21] MEDS ORDERED: sevoflurane 250ml liquid IH ONE (09:10)
[2020-03-21] MEDS ORDERED: dexamethasone sod phosphate 10mg/ml inj ONE (09:10)
[2020-03-21] MEDS ORDERED: midazolam 2 mg/2 ml injection ONE (09:15)
[2020-03-21] MEDS ORDERED: fentaNYL/PF 50MCG/1 ML 2ML syringe ONE ×2 (09:15→10:43)
[2020-03-21] MEDS ORDERED: NORepinephrine 1 mg/ml inj IV ONE ×2 (10:27→10:29)
[2020-03-21] MEDS: NORepinephrine 8mg/ 250ml NS 250 ML IV SCH ×2 (11:30→22:26)
[2020-03-21 11:51] LABS: ABG BASE EXCESS -2.8 mmol/L (-2.0-2.0); ABG HCO3 21.9 mmol/L (22.0-26.0); ABG OXYGEN SATURATION 92.2 % (94-97); ABG PCO2 (T) 38.1 mmHg (35.0-48.0); ABG PO2 (T) 67.5 mmHg (75.0-100.0); ALLEN'S TEST POSITIVE; FCOHb 0.3 % (0.0-3.9); FMetHb 0.3 % (0.0-1.5); FO2Hb 91.6 % (94-97); TOTAL HEMOGLOBIN 11.9 G/dl (14.0-18.0)
--- NOTE | 2020-03-21 12:07 | NUR ---
Patient report given, questions answered & plan of care reviewed with Rachel TYSON.
--- NOTE | 2020-03-21 12:10 | NUR ---
Patient in room CICU 2008. I have received report from Alley TYSON and had the opportunity to ask questions and assume patient care.
[2020-03-21 12:44] LABS: ALANINE AMINOTRANSFERASE 20 U/L (12-78); ALBUMIN/GLOBULIN RATIO 0.8 (1.1-1.5); ALKALINE PHOSPHATASE 66 IU/L (46-116); ANION GAP 9 (8-16); ASPARTATE AMINO TRANSFERASE 16 U/L (10-37); BASOPHILS % (AUTO) 0.2 % (0-1); BILIRUBIN,TOTAL 0.4 MG/DL (0.1-1.0); BLOOD UREA NITROGEN 17 MG/DL (7-18); BUN/CREATININE RATIO 10.5 (5.4-32.0); CALCIUM 8.7 MG/DL (8.5-10.1); CHLORIDE 104 MMOL/L (99-107); CREATININE 1.62 MG/DL (0.60-1.10); EOSINOPHILS # (AUTO) 0.1 X10'3 (0-0.9); GLUCOSE 153 MG/DL (70-104); HEMATOCRIT 34.5 % (42.0-52.0); HEMOGLOBIN 11.4 g/dl (14.0-17.9); LYMPHOCYTES # (AUTO) 0.5 X10'3 (1.1-4.8); LYMPHOCYTES % (AUTO) 6.3 % (21-51); MEAN CORPUSCULAR HEMOGLOBIN 29.2 PG (27.0-31.0); MEAN CORPUSCULAR HGB CONC 32.9 g/dL (33.0-36.5); MEAN CORPUSCULAR VOLUME 88.9 FL (78-98); MONOCYTES # (AUTO) 0.2 X10'3 (0-0.9); MONOCYTES % (AUTO) 2.3 % (2-12); NEUTROPHILS # (AUTO) 6.7 X10'3 (1.8-7.7); NEUTROPHILS % (AUTO) 90.2 % (42-75); PLATELET COUNT 311 X10'3 (140-440); POTASSIUM 4.3 MMOL/L (3.5-5.1); RED BLOOD COUNT 3.88 X10'6 (4.70-6.10); RED CELL DISTRIBUTION WIDTH 14.7 % (11.5-14.5); SODIUM 138 MMOL/L (135-145); TOTAL CARBON DIOXIDE 24.8 MMOL/L (24-32); WHITE BLOOD COUNT 7.4 X10'3 (4.5-11.0); eGFR 44 ML/MIN
[2020-03-21] MEDS ORDERED: albuterol 2.5 MG/3 ML nebule NEB PRN (13:25)
[2020-03-21] MEDS ORDERED: baclofen 10mg tablet PO PRN (14:00)
[2020-03-21] MEDS ORDERED: LIDOcaine 2% (20mg/ml) 5ml vial ONE (14:04)
[2020-03-21] MEDS ORDERED: ePHEDrine 50MG/ML INJ. ONE (14:04)
[2020-03-21] MEDS ORDERED: phenylephrine 10mg/ml inj. ONE (14:04)
[2020-03-21] MEDS ORDERED: rocuronium 10mg/ml inj IV ONE (14:04)
[2020-03-21] MEDS ORDERED: glycopyrrolate 0.2mg/ml inj ONE (14:04)
[2020-03-21] MEDS ORDERED: neostigmine methylsulfate 1 MG/ML 10ml vial ONE (14:04)
[2020-03-21] MEDS ORDERED: propofol inj 20 ML IV ONE (14:04)
[2020-03-21] MEDS ORDERED: ondansetron/PF 4mg/2ml inj ONE (14:04)
[2020-03-21] MEDS ORDERED: epiNEPHrine 0.1mg/ml 10ml syringe ONE (14:04)
[2020-03-21] MEDS: ibuprofen 200mg tablet PO PRN (17:56)
--- NOTE | 2020-03-21 18:15 | NUR ---
Patient in room CICU 2007. I have received report from Rachel TYSON and had the opportunity to ask questions and assume patient care.
--- NOTE | 2020-03-21 18:51 | NUR ---
Problems reprioritized. Patient report given, questions answered & plan of care reviewed with Cheyenne TYSON.
[2020-03-21] MEDS: oxyCODONE/APAP 10/325mg tablet PO PRN (19:22)
[2020-03-21] MEDS: tamsulosin 0.4mg capsule PO SCH (20:20)
[2020-03-21] MEDS: fenofibrate 145mg tablet PO SCH (20:20)
[2020-03-21] MEDS: gabapentin 300mg capsule PO SCH (20:21)
[2020-03-21] MEDS: diltiazem CD 120mg capsule (once-daily) PO SCH (20:22)
[2020-03-21] MEDS ORDERED: ringers solution, lacted 1,000 ML IV ONE (21:51)
[2020-03-22] VITALS (27 sets, daily range): BP systolic 97–161; BP diastolic 59–94
[2020-03-22] MEDS: oxyCODONE/APAP 10/325mg tablet PO PRN ×3 (03:51→21:21)
[2020-03-22] MEDS: ziprasidone 20mg capsule PO SCH ×2 (04:00→19:29)
[2020-03-22 05:49] LABS: ALBUMIN 3.1 G/DL (3.4-5.0); ANION GAP 10 (8-16); BLOOD UREA NITROGEN 26 MG/DL (7-18); BUN/CREATININE RATIO 13.9 (5.4-32.0); CHLORIDE 102 MMOL/L (99-107); CREATININE 1.87 MG/DL (0.60-1.10); GLUCOSE 132 MG/DL (70-104); POTASSIUM 4.5 MMOL/L (3.5-5.1); SODIUM 137 MMOL/L (135-145); eGFR 38 ML/MIN
[2020-03-22 05:51] LABS: BASOPHILS % (AUTO) 0.1 % (0-1); EOSINOPHILS % (AUTO) 0 % (0-6); HEMATOCRIT 35.4 % (42.0-52.0); HEMOGLOBIN 11.4 g/dl (14.0-17.9); LYMPHOCYTES # (AUTO) 0.8 X10'3 (1.1-4.8); LYMPHOCYTES % (AUTO) 6.6 % (21-51); MEAN CORPUSCULAR HGB CONC 32.1 g/dL (33.0-36.5); MEAN CORPUSCULAR VOLUME 90.4 FL (78-98); MEAN PLATELET VOLUME 8.1 FL (7.4-10.4); MONOCYTES # (AUTO) 0.8 X10'3 (0-0.9); NEUTROPHILS % (AUTO) 87.3 % (42-75); PLATELET COUNT 332 X10'3 (140-440); RED BLOOD COUNT 3.91 X10'6 (4.70-6.10); RED CELL DISTRIBUTION WIDTH 14.5 % (11.5-14.5); WHITE BLOOD COUNT 12.6 X10'3 (4.5-11.0)
[2020-03-22] MEDS ORDERED: famotidine/PF 10 mg/ml inj IV ONE (06:00)
--- NOTE | 2020-03-22 06:30 | NUR ---
Problems reprioritized. Patient report given, questions answered & plan of care reviewed with Anastasia TYSON.
--- NOTE | 2020-03-22 06:40 | NUR ---
Patient in room CICU 2007. I have received report from MARBELLA Quinn and had the opportunity to ask questions and assume patient care.
[2020-03-22] MEDS: gabapentin 300mg capsule PO SCH ×3 (07:04→19:29)
[2020-03-22] MEDS ORDERED: phenylephrine 10mg/ml inj. ONE (07:05)
[2020-03-22] MEDS ORDERED: sevoflurane 250ml liquid IH ONE (07:05)
[2020-03-22] MEDS ORDERED: fentaNYL/PF 50MCG/1 ML 2ML syringe ONE (07:21)
[2020-03-22] MEDS ORDERED: midazolam 2 mg/2 ml injection ONE (07:22)
[2020-03-22] MEDS: duloxetine 30mg CAPSULE.DR PO SCH (07:27)
--- NOTE | 2020-03-22 07:27 | NUR ---
pt. was picked up for OR at 0715. meds were confirmed with MD before giving this AM.
[2020-03-22] MEDS: atorvastatin 20mg tablet PO SCH (07:28)
[2020-03-22] MEDS: multivitamins, therapeutics tablet PO SCH (07:28)
[2020-03-22] MEDS: metoprolol succinate 25mg (24-HOUR) SR. Tablet PO SCH (07:28)
[2020-03-22] MEDS: pantoprazole 40mg Tablet.DR PO SCH (07:28)
[2020-03-22] MEDS: HYDROchlorothiazide 25mg tablet PO SCH (07:28)
[2020-03-22] MEDS: lisinopril 20mg tablet PO SCH (07:28)
[2020-03-22] MEDS: allopurinol 300 MG tablet PO SCH (07:29)
[2020-03-22] MEDS ORDERED: dexamethasone sod phosphate 4mg/ml inj. ONE (08:02)
[2020-03-22] MEDS ORDERED: ondansetron/PF 4mg/2ml inj ONE (08:02)
[2020-03-22] MEDS ORDERED: ceFAZolin 1000mg inj ONE ×2 (08:02→08:03)
[2020-03-22] MEDS ORDERED: LIDOcaine 2% (20mg/ml) 5ml vial ONE (08:03)
[2020-03-22] MEDS ORDERED: rocuronium 10mg/ml inj IV ONE ×2 (08:03→09:31)
[2020-03-22] MEDS ORDERED: propofol inj 20 ML IV ONE (08:03)
[2020-03-22] MEDS ORDERED: BUPIVAcaine/PF 2.5 mg/ml (0.25%) 30ml vial ONE (08:05)
[2020-03-22] MEDS ORDERED: glycopyrrolate 0.2mg/ml inj ONE (08:05)
[2020-03-22] MEDS ORDERED: BUPIVACAINE liposomal/PF 13.3 MG/ML vial IM ONE (08:05)
[2020-03-22] MEDS ORDERED: ringers solution, lacted 1,000 ML IV SCH (08:22)
[2020-03-22] MEDS ORDERED: meperidine/PF 25mg/ml syringe IV PRN (08:25)
[2020-03-22] MEDS ORDERED: proCHLORperazine 10 MG/2 ml inj IV PRN (08:25)
[2020-03-22] MEDS ORDERED: acetaminophen 1,000mg/100ml IV 100 ML IV PRN (08:25)
[2020-03-22] MEDS ORDERED: ondansetron/PF 4mg/2ml inj IV PRN (08:25)
[2020-03-22] MEDS ORDERED: morphine 2 MG/ML inj. syringe IV PRN (08:25)
[2020-03-22] MEDS ORDERED: HYDROmorphone inj. 0.5 MG/0.5 ML DISP.SYRIN IV PRN ×2 (08:25)
[2020-03-22] MEDS ORDERED: sugammadex 200mg/2ml injection IV ONE (09:10)
--- NOTE | 2020-03-22 09:38 | NUR ---
Received from OR via BED, accompanied by Anesthesiologist DR HOFFMAN and report given by Anesthesiologist. PT AWAKE, PAINFUL, ABDOMEN W/ABD BINDER COVERING INCISION/DRSG CDI, MCKINNON CATHETER TO GRAVITY DRAINAGE W/YELLOW URINE IN DRAINAGE BAG. Addendum: 03/22/20 at 1030 by Kimberli Vinson RN Amended: Links added.
[2020-03-22] MEDS: morphine 4 MG/ML inj SYRINge IV PRN ×2 (09:41→09:50)
[2020-03-22] MEDS: ringers solution, lacted 1,000 ML IV SCH ×2 (10:35→19:20)
--- NOTE | 2020-03-22 11:18 | NUR ---
Report called to receiving nurse. Transferred via BED, NO Belongings, CALL LIGHT GIVEN, SIDE RAILS UP X 2, RECEIVING RN NOTIFIED OF PTS ARRIVAL. Special Issues communicated to receiving nurse. YES. Addendum: 03/22/20 at 1125 by Kimberli Vinson RN Amended: Links added.
--- NOTE | 2020-03-22 11:25 | NUR ---
Received pt via bed from CICU via surgery. Pt awake A&O pain tolerable at 4/10. Oriented to room & post-op POC. Bed low call light in reach. Received report from CICU David in recovery. Large abd pad to abd with abd binder. No drainage noted.
--- NOTE | 2020-03-22 18:00 | NUR ---
Problems reprioritized. Patient report given, questions answered & plan of care reviewed with MARBELLA Katz.
--- NOTE | 2020-03-22 18:30 | NUR ---
Patient in room RAO 347. I have received report from SILVA TYSON and had the opportunity to ask questions and assume patient care.
[2020-03-22] MEDS: diltiazem CD 120mg capsule (once-daily) PO SCH (19:30)
[2020-03-22] MEDS: fenofibrate 145mg tablet PO SCH (19:30)
[2020-03-22] MEDS: tamsulosin 0.4mg capsule PO SCH (19:30)
[2020-03-23 00:48] VITALS: BP 127/70
[2020-03-23] MEDS: oxyCODONE/APAP 10/325mg tablet PO PRN ×3 (03:21→19:03)
--- NOTE | 2020-03-23 06:30 | NUR ---
Problems reprioritized. Patient report given, questions answered & plan of care reviewed with KRISTA TYSON.
--- NOTE | 2020-03-23 06:30 | NUR ---
Patient in room RAO 347. I have received report from Marifer Caicedo RN and had the opportunity to ask questions and assume patient care.
[2020-03-23] MEDS: ringers solution, lacted 1,000 ML IV SCH ×3 (06:35→20:46)
[2020-03-23 07:00] VITALS: BP 134/81
[2020-03-23] MEDS: atorvastatin 20mg tablet PO SCH (08:45)
[2020-03-23] MEDS: HYDROchlorothiazide 25mg tablet PO SCH (08:45)
[2020-03-23] MEDS: duloxetine 30mg CAPSULE.DR PO SCH (08:45)
[2020-03-23] MEDS: multivitamins, therapeutics tablet PO SCH (08:45)
[2020-03-23] MEDS: lisinopril 20mg tablet PO SCH (08:46)
[2020-03-23] MEDS: allopurinol 300 MG tablet PO SCH (08:46)
[2020-03-23] MEDS: gabapentin 300mg capsule PO SCH ×2 (08:46→20:43)
[2020-03-23] MEDS: pantoprazole 40mg Tablet.DR PO SCH (08:46)
[2020-03-23] MEDS: metoprolol succinate 25mg (24-HOUR) SR. Tablet PO SCH (08:46)
--- NOTE | 2020-03-23 10:27 | NUR ---
Patient in room RAO 347. I have received report from scalper operator and had the opportunity to ask questions and assume patient care.
--- NOTE | 2020-03-23 11:30 | NUR ---
Problems reprioritized. Patient report given, questions answered & plan of care reviewed with MARBELLA Henry.
[2020-03-23 11:46] VITALS: BP 145/87
--- NOTE | 2020-03-23 13:09 | NUR ---
AGREE WITH PHYSICAL ASSESSMENT DONE TODAY. NO CHANGE IN CONDITION Addendum: 03/23/20 at 1309 by Sarahi Lyon RN Amended: Links added.
--- NOTE | 2020-03-23 18:28 | NUR ---
Problems reprioritized. Patient report given, questions answered & plan of care reviewed with JUAN MARTINEZ RN.
--- NOTE | 2020-03-23 18:30 | NUR ---
Patient in room RAO 347. I have received report from SMOOTH TYSON and had the opportunity to ask questions and assume patient care.
[2020-03-23 20:00] VITALS: BP 151/82
[2020-03-23] MEDS: tamsulosin 0.4mg capsule PO SCH (20:43)
[2020-03-23] MEDS: fenofibrate 145mg tablet PO SCH (20:43)
[2020-03-23] MEDS: ziprasidone 20mg capsule PO SCH (20:43)
[2020-03-23] MEDS: diltiazem CD 120mg capsule (once-daily) PO SCH (20:43)
[2020-03-23] MEDS: ibuprofen 200mg tablet PO PRN (20:50)
[2020-03-24] VITALS: BP 111/60
[2020-03-24] MEDS: oxyCODONE/APAP 10/325mg tablet PO PRN ×3 (01:28→19:58)
[2020-03-24 05:20] LABS: BASOPHILS % (AUTO) 0.1 % (0-1); EOSINOPHILS # (AUTO) 0.2 X10'3 (0-0.9); EOSINOPHILS % (AUTO) 2.7 % (0-6); HEMATOCRIT 30.5 % (42.0-52.0); LYMPHOCYTES # (AUTO) 0.6 X10'3 (1.1-4.8); LYMPHOCYTES % (AUTO) 7.9 % (21-51); MEAN CORPUSCULAR HEMOGLOBIN 29.8 PG (27.0-31.0); MEAN CORPUSCULAR HGB CONC 32.8 g/dL (33.0-36.5); MEAN CORPUSCULAR VOLUME 90.9 FL (78-98); MEAN PLATELET VOLUME 7.9 FL (7.4-10.4); MONOCYTES # (AUTO) 0.9 X10'3 (0-0.9); MONOCYTES % (AUTO) 11.8 % (2-12); NEUTROPHILS % (AUTO) 77.5 % (42-75); PLATELET COUNT 288 X10'3 (140-440); RED BLOOD COUNT 3.36 X10'6 (4.70-6.10); RED CELL DISTRIBUTION WIDTH 14.9 % (11.5-14.5); WHITE BLOOD COUNT 7.8 X10'3 (4.5-11.0)
[2020-03-24 05:36] LABS: ALBUMIN 2.5 G/DL (3.4-5.0); ANION GAP 7 (8-16); BLOOD UREA NITROGEN 28 MG/DL (7-18); BUN/CREATININE RATIO 14.3 (5.4-32.0); CALCIUM 8.9 MG/DL (8.5-10.1); CHLORIDE 99 MMOL/L (99-107); CREATININE 1.96 MG/DL (0.60-1.10); GLUCOSE 95 MG/DL (70-104); POTASSIUM 4.4 MMOL/L (3.5-5.1); SODIUM 131 MMOL/L (135-145); TOTAL CARBON DIOXIDE 24.9 MMOL/L (24-32); eGFR 36 ML/MIN
[2020-03-24] MEDS: ringers solution, lacted 1,000 ML IV SCH ×2 (05:39→16:17)
--- NOTE | 2020-03-24 06:00 | NUR ---
Patient in room RAO 347. I have received report from MARBELLA Mccloud and had the opportunity to ask questions and assume patient care.
--- NOTE | 2020-03-24 06:22 | NUR ---
Problems reprioritized. Patient report given, questions answered & plan of care reviewed with MATTHEW TYSON.
[2020-03-24 07:00] VITALS: BP 112/58
[2020-03-24] MEDS: multivitamins, therapeutics tablet PO SCH (07:14)
[2020-03-24] MEDS: allopurinol 300 MG tablet PO SCH (07:14)
[2020-03-24] MEDS: metoprolol succinate 25mg (24-HOUR) SR. Tablet PO SCH (07:14)
[2020-03-24] MEDS: HYDROchlorothiazide 25mg tablet PO SCH (07:14)
[2020-03-24] MEDS: gabapentin 300mg capsule PO SCH ×2 (07:14→19:57)
[2020-03-24] MEDS: pantoprazole 40mg Tablet.DR PO SCH (07:15)
[2020-03-24] MEDS: duloxetine 30mg CAPSULE.DR PO SCH (07:15)
[2020-03-24] MEDS: atorvastatin 20mg tablet PO SCH (07:15)
[2020-03-24] MEDS: lisinopril 20mg tablet PO SCH (08:55)
[2020-03-24 11:00] VITALS: BP 115/74
--- NOTE | 2020-03-24 13:33 | NUR ---
Patient feeling nauseated after eating limited small handful of regular diet, MD informed and states they will input orders.
[2020-03-24] MEDS: ondansetron/PF 4mg/2ml inj IV PRN ×2 (13:53→21:29)
[2020-03-24 18:00] VITALS: BP 145/77
--- NOTE | 2020-03-24 18:04 | NUR ---
Patient in room RAO 347. I have received report from MARBELLA Pierre and had the opportunity to ask questions and assume patient care.
--- NOTE | 2020-03-24 18:14 | NUR ---
Problems reprioritized. Patient report given, questions answered & plan of care reviewed with MARBELLA Scales.
--- NOTE | 2020-03-24 18:15 | NUR ---
Patient in room RAO 347. I have received report from MARBELLA Pierre and had the opportunity to ask questions and assume patient care.
[2020-03-24] MEDS: fenofibrate 145mg tablet PO SCH (21:37)
[2020-03-24] MEDS: tamsulosin 0.4mg capsule PO SCH (21:38)
[2020-03-24] MEDS: diltiazem CD 120mg capsule (once-daily) PO SCH (21:38)
[2020-03-24] MEDS: ziprasidone 20mg capsule PO SCH (21:38)
[2020-03-25 00:15] VITALS: BP 113/72
[2020-03-25] MEDS: ringers solution, lacted 1,000 ML IV SCH (01:01)
[2020-03-25] MEDS: oxyCODONE/APAP 10/325mg tablet PO PRN ×5 (02:36→20:47)
[2020-03-25 06:45] VITALS: BP 154/74
--- NOTE | 2020-03-25 06:46 | NUR ---
Patient in room RAO 347. I have received report from MARBELLA Scales and had the opportunity to ask questions and assume patient care.
[2020-03-25 07:00] VITALS: BP 121/70
[2020-03-25] MEDS: HYDROchlorothiazide 25mg tablet PO SCH (07:13)
[2020-03-25] MEDS: multivitamins, therapeutics tablet PO SCH (07:14)
[2020-03-25] MEDS: duloxetine 30mg CAPSULE.DR PO SCH (07:14)
[2020-03-25] MEDS: gabapentin 300mg capsule PO SCH ×2 (07:14→20:47)
[2020-03-25] MEDS: allopurinol 300 MG tablet PO SCH (07:14)
[2020-03-25] MEDS: atorvastatin 20mg tablet PO SCH (07:14)
[2020-03-25] MEDS: metoprolol succinate 25mg (24-HOUR) SR. Tablet PO SCH (07:14)
[2020-03-25] MEDS: pantoprazole 40mg Tablet.DR PO SCH (07:14)
[2020-03-25] MEDS: lisinopril 20mg tablet PO SCH (07:14)
[2020-03-25] MEDS: ondansetron/PF 4mg/2ml inj IV PRN ×2 (07:17→20:47)
[2020-03-25 09:29] LABS: BASOPHILS % (AUTO) 0.1 % (0-1); EOSINOPHILS # (AUTO) 0.1 X10'3 (0-0.9); EOSINOPHILS % (AUTO) 0.7 % (0-6); HEMATOCRIT 31.4 % (42.0-52.0); HEMOGLOBIN 10.4 g/dl (14.0-17.9); LYMPHOCYTES # (AUTO) 0.6 X10'3 (1.1-4.8); LYMPHOCYTES % (AUTO) 6.2 % (21-51); MEAN CORPUSCULAR HEMOGLOBIN 29.2 PG (27.0-31.0); MEAN CORPUSCULAR HGB CONC 32.9 g/dL (33.0-36.5); MEAN CORPUSCULAR VOLUME 88.5 FL (78-98); MEAN PLATELET VOLUME 8.1 FL (7.4-10.4); MONOCYTES # (AUTO) 1.2 X10'3 (0-0.9); MONOCYTES % (AUTO) 11.1 % (2-12); NEUTROPHILS # (AUTO) 8.6 X10'3 (1.8-7.7); NEUTROPHILS % (AUTO) 81.9 % (42-75); PLATELET COUNT 390 X10'3 (140-440); RED BLOOD COUNT 3.55 X10'6 (4.70-6.10); RED CELL DISTRIBUTION WIDTH 14.4 % (11.5-14.5); WHITE BLOOD COUNT 10.5 X10'3 (4.5-11.0)
[2020-03-25 09:31] LABS: ALBUMIN 2.6 G/DL (3.4-5.0); ANION GAP 8 (8-16); BLOOD UREA NITROGEN 22 MG/DL (7-18); BUN/CREATININE RATIO 17.1 (5.4-32.0); CALCIUM 9.2 MG/DL (8.5-10.1); CHLORIDE 97 MMOL/L (99-107); CREATININE 1.29 MG/DL (0.60-1.10); GLUCOSE 120 MG/DL (70-104); POTASSIUM 4.1 MMOL/L (3.5-5.1); SODIUM 133 MMOL/L (135-145); TOTAL CARBON DIOXIDE 28.5 MMOL/L (24-32); eGFR 58 ML/MIN
[2020-03-25 11:00] VITALS: BP 141/74
--- NOTE | 2020-03-25 18:32 | NUR ---
Problems reprioritized. Patient report given, questions answered & plan of care reviewed with MARBELLA Perez.
--- NOTE | 2020-03-25 18:39 | NUR ---
Patient in room RAO 347. I have received report from Gabby TYSON and had the opportunity to ask questions and assume patient care.
[2020-03-25 20:10] VITALS: BP 133/73
[2020-03-25] MEDS: ziprasidone 20mg capsule PO SCH (20:46)
[2020-03-25] MEDS: diltiazem CD 120mg capsule (once-daily) PO SCH (20:47)
[2020-03-25] MEDS: fenofibrate 145mg tablet PO SCH (20:47)
[2020-03-25] MEDS: tamsulosin 0.4mg capsule PO SCH (20:47)
[2020-03-26] VITALS: BP 126/61
[2020-03-26] MEDS: oxyCODONE/APAP 10/325mg tablet PO PRN ×2 (03:27→10:43)
--- NOTE | 2020-03-26 05:54 | NUR ---
Problems reprioritized. Patient report given, questions answered & plan of care reviewed with Gabby TYSON.
--- NOTE | 2020-03-26 06:00 | NUR ---
Patient in room RAO 344. I have received report from MARBELLA Perez and had the opportunity to ask questions and assume patient care.
[2020-03-26 07:00] VITALS: BP 133/70
[2020-03-26] MEDS: multivitamins, therapeutics tablet PO SCH (07:28)
[2020-03-26] MEDS: gabapentin 300mg capsule PO SCH (07:29)
[2020-03-26] MEDS: atorvastatin 20mg tablet PO SCH (07:29)
[2020-03-26] MEDS: pantoprazole 40mg Tablet.DR PO SCH (07:29)
[2020-03-26] MEDS: lisinopril 20mg tablet PO SCH (07:29)
[2020-03-26] MEDS: HYDROchlorothiazide 25mg tablet PO SCH (07:29)
[2020-03-26] MEDS: duloxetine 30mg CAPSULE.DR PO SCH (07:29)
[2020-03-26] MEDS: allopurinol 300 MG tablet PO SCH (07:30)
[2020-03-26] MEDS: metoprolol succinate 25mg (24-HOUR) SR. Tablet PO SCH (07:30)
[2020-03-26 11:00] VITALS: BP 130/69
--- NOTE | 2020-03-26 12:04 | NUR ---
Initial: Pt s/p open lysis of adhesions post-op day 4 advanced to full liquid diet yesterday PO 75-100% avg meals and tolerating. Pt seen by RD for written/verbal high protein ed w/ RD contact information provided. Pt is agreeable to strawberry Freddie shake BIDLD and chocolate ensure enlive at breakfasts; MD notified. Receiving MVI for wound healing. LBM 03/25 and passing gas per MD note. Pt reports good appetite and no nutrition questions/concerns at this time. Will continue to monitor for additional protein needs post-op. Rec: 1. advance diet as medically indicated to heart healthy 2. strawberry freddie shake BIDLD; chocolate ensure enlive at breakfasts 3. MVI for wounds 4. routine bowel care 5. wt per rx Addendum: 03/26/20 at [address] Amended: Links added.
--- NOTE | 2020-03-26 16:02 | NUR ---
Patient discharged home into the care of , patient alert, oriented, and appropriate for discharge. Patient verbalized understanding of discharge instructions. Patient will make appointment for wound care clinic for this 03/29. Patient will make appointment to see MD schneider within one week. Patient left with all belongings. Patient IV removed. Patient not on tele.
== END 2020-03-26 15:40 | disposition home or self-care (01) | DRG 335 ==
LOC: PAS 06:22 → CICU 2S 11:08 → SUR 3N 03-22 11:06
PROVIDERS: ADMIT Surgery; ATTEND Surgery
PROC: 0DN80ZZ Release Small Intestine, Open Approach (ICD-10-PCS; principal; 2020-03-22 07:18)
PROC: 0WQF0ZZ Repair Abdominal Wall, Open Approach (ICD-10-PCS; 2020-03-26)
DX: K66.0 Peritoneal adhesions (postprocedural) (postinfection) (principal); N17.0 Acute kidney failure with tubular necrosis; Z68.41 Body mass index [BMI] 40.0-44.9, adult; I10 Essential (primary) hypertension; Z86.14 Personal history of Methicillin resistant Staphylococcus aureus infection; K43.9 Ventral hernia without obstruction or gangrene; Z53.9 Procedure and treatment not carried out, unspecified reason; X58.XXXA Exposure to other specified factors, initial encounter; I95.9 Hypotension, unspecified; Y93.89 Activity, other specified; Y92.89 Other specified places as the place of occurrence of the external cause; Y99.8 Other external cause status; E66.01 Morbid (severe) obesity due to excess calories
CPT/HCPCS: 36415; 36600; 80048; 80053; 82803; 82948; 85018; 85025; 87081; 88304; 94660; 94760; A4618; A6253; A7000; C1758; C9290; C9399; G0378; J0131; J0171; J0690; J0780; J1100; J1170; J2001; J2250; J2270; J2370; J2405; J2704; J2710; J3010; J3490; J7120

== ENCOUNTER 2020-03-29 09:19 | Day surgery (SDC) | payer MEDICARE, MEDICAID ==
[~2020-03-29 09:19] MED LIST changes: -DOCUMENT DATE & TIME OF BETA-BLOCKER PO ONE; -albuterol 2.5 MG/3 ML nebule NEB ONE; -clindamycin-Cleocin 900mg/D5W 50 ML IV ONE; -famotidine 20mg tablet PO ONE; -ringers solution, lacted 1,000 ML IV SCH
[2020-03-29] MEDS ORDERED: LIDOcaine 2% 5ml jelly ONE (09:35)
== END 2020-03-29 10:06 | disposition home or self-care (01) ==
LOC: WOUND CARE 09:19
PROVIDERS: ATTEND Nurse Practitioner
DX: T81.89XA Other complications of procedures, not elsewhere classified, initial encounter (principal); L98.492 Non-pressure chronic ulcer of skin of other sites with fat layer exposed; I12.9 Hypertensive chronic kidney disease with stage 1 through stage 4 chronic kidney disease, or unspecified chronic kidney disease; N18.3 Chronic kidney disease, stage 3 (moderate); J44.9 Chronic obstructive pulmonary disease, unspecified; K21.9 Gastro-esophageal reflux disease without esophagitis; M19.90 Unspecified osteoarthritis, unspecified site; M81.0 Age-related osteoporosis without current pathological fracture; E78.5 Hyperlipidemia, unspecified; N40.0 Benign prostatic hyperplasia without lower urinary tract symptoms; G89.4 Chronic pain syndrome; M10.9 Gout, unspecified; E78.2 Mixed hyperlipidemia; F41.9 Anxiety disorder, unspecified; F32.9 Major depressive disorder, single episode, unspecified; Z96.653 Presence of artificial knee joint, bilateral; Z79.899 Other long term (current) drug therapy; Z98.890 Other specified postprocedural states; Z90.49 Acquired absence of other specified parts of digestive tract; Z86.14 Personal history of Methicillin resistant Staphylococcus aureus infection; Z87.891 Personal history of nicotine dependence; Y83.8 Other surgical procedures as the cause of abnormal reaction of the patient, or of later complication, without mention of misadventure at the time of the procedure; Y92.238 Other place in hospital as the place of occurrence of the external cause
CPT/HCPCS: 97597

== ENCOUNTER 2020-04-13 13:10 | Emergency (ER) | payer MEDICARE, MEDICAID ==
[~2020-04-13] VITALS: Ht 172.7 cm; Wt 113.6 kg
[2020-04-13 13:42] LABS: CLARITY,URINE CLEAR (Clear); COLOR,URINE YELLOW (Yellow); GLUCOSE, URINE NEGATIVE (Neg); KETONES,URINE NEGATIVE (Neg); LEUKOCYTE ESTERASE ,URINE NEGATIVE (Neg); NITRITES, URINE NEGATIVE (Neg); OCCULT BLOOD,URINE TRACE-INTACT (Neg); PH,URINE 5.5 (4.8-8.0); PROTEIN,URINE NEGATIVE (Neg); UROBILINOGEN,URINE 0.2 E.U/dL (0.2-1.0)
[2020-04-13 13:54] LABS: UA COLLECTION TYPE CLN CATCH MIDSTREAM
[2020-04-13 13:55] LABS: BACTERIA,URINE NONE SEEN /HPF (Neg); MUCUS STRANDS NONE SEEN /LPF (Neg); RBC,URINE 0-2 /HPF (0-2); SQUAMOUS EPITHELIAL CELL,UR NONE SEEN /LPF (FEW); WBC,URINE NONE SEEN /HPF (0-4)
[2020-04-13 14:00] LABS: BASOPHILS % (AUTO) 0.2 % (0-1); EOSINOPHILS # (AUTO) 0.2 X10'3 (0-0.9); EOSINOPHILS % (AUTO) 3.2 % (0-6); HEMATOCRIT 29.3 % (42.0-52.0); HEMOGLOBIN 9.7 g/dl (14.0-17.9); LYMPHOCYTES # (AUTO) 1.2 X10'3 (1.1-4.8); LYMPHOCYTES % (AUTO) 17.9 % (21-51); MEAN CORPUSCULAR HEMOGLOBIN 28.4 PG (27.0-31.0); MEAN CORPUSCULAR VOLUME 86.1 FL (78-98); MEAN PLATELET VOLUME 7.6 FL (7.4-10.4); MONOCYTES # (AUTO) 0.7 X10'3 (0-0.9); NEUTROPHILS # (AUTO) 4.8 X10'3 (1.8-7.7); NEUTROPHILS % (AUTO) 68.7 % (42-75); PLATELET COUNT 424 X10'3 (140-440); WHITE BLOOD COUNT 6.9 X10'3 (4.5-11.0)
[2020-04-13 14:13] LABS: ALANINE AMINOTRANSFERASE 24 U/L (12-78); ALBUMIN 2.7 G/DL (3.4-5.0); ALBUMIN/GLOBULIN RATIO 0.6 (1.1-1.5); ALKALINE PHOSPHATASE 73 IU/L (46-116); ANION GAP 8 (8-16); ASPARTATE AMINO TRANSFERASE 17 U/L (10-37); BILIRUBIN,TOTAL 0.2 MG/DL (0.1-1.0); BLOOD UREA NITROGEN 29 MG/DL (7-18); BUN/CREATININE RATIO 19.6 (5.4-32.0); CALCIUM 9.5 MG/DL (8.5-10.1); CHLORIDE 105 MMOL/L (99-107); CREATININE 1.48 MG/DL (0.60-1.10); GLUCOSE 120 MG/DL (70-104); MAGNESIUM 1.6 MG/DL (1.5-2.4); POTASSIUM 4.3 MMOL/L (3.5-5.1); SODIUM 138 MMOL/L (135-145); TOTAL CARBON DIOXIDE 25.2 MMOL/L (24-32); TOTAL PROTEIN 7.6 G/DL (6.4-8.2); eGFR 49 ML/MIN
[2020-04-13] MEDS ORDERED: normal saline 1000ML IV soln IVB ONE (14:45)
[2020-04-13] MEDS ORDERED: ondansetron/PF 4mg/2ml inj IV ONE (14:45)
[2020-04-13] MEDS ORDERED: morphine 4 MG/ML inj SYRINge IV PRN (14:45)
[2020-04-13] MEDS ORDERED: morphine 10mg/ml inj. IV PRN (14:50)
[2020-04-13] MEDS ORDERED: HYDROcodone/acetaminophen 10/325mg tab PO ONE (15:15)
--- NOTE | 2020-04-13 15:51 | NUR ---
Pt is a 66 year old male. Pt with multiple complications of a hernia repair. Most recently in the hospital in February for lysis of adhesions and wound closure with Dr. Villarreal. 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 Asked by the ED MD and surgeon to place a bag over the wound. Cleansed periwound with wound cleanser, rinsed with saline, removed suture per surgeon's order to prevent tearing of skin, placed fistula drainage bag with window over entire area. Used alginate in bottom of bag to help ensure drainage does not seep between bag and skin. Educated pt on the dressing and complications that could occur and how to handle them. He states he has home health that he can call if complications with dressing arise. Educated him on signs of infection and to return to ED if sudden additional portrusion of the bowel occurs.
--- NOTE | 2020-04-13 16:00 | NUR ---
Dressing instructions: If the bag is removed/comes off for any reason 1. Cleanse raf-wound skin and rinse, dry thoroughly. 2. Prep a new drainage bag by cutting out the center with enough area to "window pane" the entire wound. 3. Prep the skin with barrier spray. 4. Place alginate around most inferior suture to help prevent draiange from leaking between bag and skin. If window bag is used the alginate can be changed daily and as needed. 5. Apply bag. Recommend using a chair maker or warm blanket over the edges of the bag to help the material meld to patient's skin. 6. Secure Li straps. 7. If drainage from wound is significant a jackson catheter collection bag can be attached to the spout on the bag to prevent bag from filling and compromising seal.
[2020-04-13 16:10] VITALS: BP 161/78
== END 2020-04-13 16:13 | disposition home or self-care (01) ==
LOC: ER 13:11
DX: T81.33XS Disruption of traumatic injury wound repair, sequela (principal); L98.8 Other specified disorders of the skin and subcutaneous tissue; I10 Essential (primary) hypertension; J44.9 Chronic obstructive pulmonary disease, unspecified; Z98.890 Other specified postprocedural states; Z88.0 Allergy status to penicillin; Z88.8 Allergy status to other drugs, medicaments and biological substances; Z79.899 Other long term (current) drug therapy
CPT/HCPCS: 36415; 71045; 80053; 81001; 83605; 83735; 84145; 85025; 87040; 93005; 96361; 96374; 99285; J2405; J7030; J2270

== ENCOUNTER 2020-05-14 08:45 | Outpatient (CLI) | payer MEDICARE, MEDICAID ==
[~2020-05-14 08:45] MED LIST changes: -DULO60CA45 PO; -IBUP-1984 PO; +LACT1CAP26 PO; +LEVO750T46 PO; +LINE600T12 PO; +METR500T PO; -MULT-1074 PO; -PANT40TA4 PO; +PANT40TA54 PO
== END 2020-05-14 09:59 | disposition home or self-care (01) ==
LOC: WOUND CARE 08:45
PROVIDERS: ATTEND Nurse Practitioner Family
DX: T81.89XD Other complications of procedures, not elsewhere classified, subsequent encounter (principal); L98.492 Non-pressure chronic ulcer of skin of other sites with fat layer exposed; I12.9 Hypertensive chronic kidney disease with stage 1 through stage 4 chronic kidney disease, or unspecified chronic kidney disease; N18.3 Chronic kidney disease, stage 3 (moderate); J44.9 Chronic obstructive pulmonary disease, unspecified; K21.9 Gastro-esophageal reflux disease without esophagitis; M19.90 Unspecified osteoarthritis, unspecified site; M81.0 Age-related osteoporosis without current pathological fracture; N40.0 Benign prostatic hyperplasia without lower urinary tract symptoms; G89.4 Chronic pain syndrome; M10.9 Gout, unspecified; E78.2 Mixed hyperlipidemia; F41.9 Anxiety disorder, unspecified; F32.9 Major depressive disorder, single episode, unspecified; Z96.653 Presence of artificial knee joint, bilateral; Z79.899 Other long term (current) drug therapy; Z98.890 Other specified postprocedural states; Z90.49 Acquired absence of other specified parts of digestive tract; Z86.14 Personal history of Methicillin resistant Staphylococcus aureus infection; Z87.891 Personal history of nicotine dependence; Y83.8 Other surgical procedures as the cause of abnormal reaction of the patient, or of later complication, without mention of misadventure at the time of the procedure
CPT/HCPCS: G0463

== ENCOUNTER 2020-05-17 10:54 | Day surgery (SDC) | payer MEDICARE, MEDICAID ==
[2020-05-17] MEDS ORDERED: LIDOcaine 2% 5ml jelly ONE (11:57)
== END 2020-05-17 12:19 | disposition home or self-care (01) ==
LOC: WOUND CARE 10:54
PROVIDERS: ATTEND Nurse Practitioner
DX: T81.89XD Other complications of procedures, not elsewhere classified, subsequent encounter (principal); L98.492 Non-pressure chronic ulcer of skin of other sites with fat layer exposed; I12.9 Hypertensive chronic kidney disease with stage 1 through stage 4 chronic kidney disease, or unspecified chronic kidney disease; N18.3 Chronic kidney disease, stage 3 (moderate); J44.9 Chronic obstructive pulmonary disease, unspecified; K21.9 Gastro-esophageal reflux disease without esophagitis; M19.90 Unspecified osteoarthritis, unspecified site; M81.0 Age-related osteoporosis without current pathological fracture; E78.5 Hyperlipidemia, unspecified; N40.0 Benign prostatic hyperplasia without lower urinary tract symptoms; G89.4 Chronic pain syndrome; M10.9 Gout, unspecified; E78.2 Mixed hyperlipidemia; F41.9 Anxiety disorder, unspecified; F32.9 Major depressive disorder, single episode, unspecified; Z96.653 Presence of artificial knee joint, bilateral; Z79.899 Other long term (current) drug therapy; Z98.890 Other specified postprocedural states; Z90.49 Acquired absence of other specified parts of digestive tract; Z86.14 Personal history of Methicillin resistant Staphylococcus aureus infection; Z87.891 Personal history of nicotine dependence; Y83.8 Other surgical procedures as the cause of abnormal reaction of the patient, or of later complication, without mention of misadventure at the time of the procedure
CPT/HCPCS: 97597

== ENCOUNTER 2020-05-22 09:13 | Day surgery (SDC) | payer MEDICARE, MEDICAID ==
[2020-05-22] MEDS ORDERED: LIDOcaine 2% 5ml jelly ONE (09:24)
== END 2020-05-22 10:10 | disposition home or self-care (01) ==
LOC: WOUND CARE 09:13
PROVIDERS: ATTEND Nurse Practitioner
DX: T81.89XD Other complications of procedures, not elsewhere classified, subsequent encounter (principal); L98.492 Non-pressure chronic ulcer of skin of other sites with fat layer exposed; I12.9 Hypertensive chronic kidney disease with stage 1 through stage 4 chronic kidney disease, or unspecified chronic kidney disease; N18.3 Chronic kidney disease, stage 3 (moderate); J44.9 Chronic obstructive pulmonary disease, unspecified; K21.9 Gastro-esophageal reflux disease without esophagitis; M19.90 Unspecified osteoarthritis, unspecified site; M81.0 Age-related osteoporosis without current pathological fracture; E78.5 Hyperlipidemia, unspecified; N40.0 Benign prostatic hyperplasia without lower urinary tract symptoms; G89.4 Chronic pain syndrome; M10.9 Gout, unspecified; E78.2 Mixed hyperlipidemia; F41.9 Anxiety disorder, unspecified; F32.9 Major depressive disorder, single episode, unspecified; Z96.653 Presence of artificial knee joint, bilateral; Z79.899 Other long term (current) drug therapy; Z98.890 Other specified postprocedural states; Z90.49 Acquired absence of other specified parts of digestive tract; Z86.14 Personal history of Methicillin resistant Staphylococcus aureus infection; Z87.891 Personal history of nicotine dependence; Y83.8 Other surgical procedures as the cause of abnormal reaction of the patient, or of later complication, without mention of misadventure at the time of the procedure
CPT/HCPCS: 97597

== ENCOUNTER 2020-05-29 09:11 | Day surgery (SDC) | payer MEDICARE, MEDICAID ==
[2020-05-29] MEDS ORDERED: LIDOcaine 2% 5ml jelly ONE (09:28)
== END 2020-05-29 09:57 | disposition home or self-care (01) ==
LOC: WOUND CARE 09:11
PROVIDERS: ATTEND Registered Nurse General Practice
DX: T81.89XD Other complications of procedures, not elsewhere classified, subsequent encounter (principal); L98.492 Non-pressure chronic ulcer of skin of other sites with fat layer exposed; I12.9 Hypertensive chronic kidney disease with stage 1 through stage 4 chronic kidney disease, or unspecified chronic kidney disease; N18.3 Chronic kidney disease, stage 3 (moderate); J44.9 Chronic obstructive pulmonary disease, unspecified; K21.9 Gastro-esophageal reflux disease without esophagitis; M19.90 Unspecified osteoarthritis, unspecified site; M81.0 Age-related osteoporosis without current pathological fracture; E78.5 Hyperlipidemia, unspecified; N40.0 Benign prostatic hyperplasia without lower urinary tract symptoms; G89.4 Chronic pain syndrome; M10.9 Gout, unspecified; E78.2 Mixed hyperlipidemia; F41.9 Anxiety disorder, unspecified; F32.9 Major depressive disorder, single episode, unspecified; Z96.653 Presence of artificial knee joint, bilateral; Z79.899 Other long term (current) drug therapy; Z98.890 Other specified postprocedural states; Z90.49 Acquired absence of other specified parts of digestive tract; Z87.891 Personal history of nicotine dependence; Z86.14 Personal history of Methicillin resistant Staphylococcus aureus infection; Y83.8 Other surgical procedures as the cause of abnormal reaction of the patient, or of later complication, without mention of misadventure at the time of the procedure
CPT/HCPCS: 97597

== ENCOUNTER 2020-06-05 08:52 | Day surgery (SDC) | payer MEDICARE, MEDICAID ==
[2020-06-05] MEDS ORDERED: LIDOcaine 2% 5ml jelly ONE (09:14)
== END 2020-06-05 09:40 | disposition home or self-care (01) ==
LOC: WOUND CARE 08:52
PROVIDERS: ATTEND Nurse Practitioner
DX: T81.89XD Other complications of procedures, not elsewhere classified, subsequent encounter (principal); L98.492 Non-pressure chronic ulcer of skin of other sites with fat layer exposed; I12.9 Hypertensive chronic kidney disease with stage 1 through stage 4 chronic kidney disease, or unspecified chronic kidney disease; N18.30 Chronic kidney disease, stage 3 unspecified; J44.9 Chronic obstructive pulmonary disease, unspecified; K21.9 Gastro-esophageal reflux disease without esophagitis; M19.90 Unspecified osteoarthritis, unspecified site; M81.0 Age-related osteoporosis without current pathological fracture; N40.0 Benign prostatic hyperplasia without lower urinary tract symptoms; G89.4 Chronic pain syndrome; M10.9 Gout, unspecified; E78.2 Mixed hyperlipidemia; F41.9 Anxiety disorder, unspecified; F32.9 Major depressive disorder, single episode, unspecified; Z96.653 Presence of artificial knee joint, bilateral; Z79.899 Other long term (current) drug therapy; Z98.890 Other specified postprocedural states; Z90.49 Acquired absence of other specified parts of digestive tract; Z87.891 Personal history of nicotine dependence; Z86.14 Personal history of Methicillin resistant Staphylococcus aureus infection; Y83.8 Other surgical procedures as the cause of abnormal reaction of the patient, or of later complication, without mention of misadventure at the time of the procedure
CPT/HCPCS: 97597

== ENCOUNTER 2020-06-12 09:08 | Day surgery (SDC) | payer MEDICARE, MEDICAID ==
[~2020-06-12 09:08] MED LIST changes: -LINE600T12 PO
[2020-06-12] MEDS ORDERED: LIDOcaine 2% 5ml jelly ONE (09:24)
== END 2020-06-12 09:45 | disposition home or self-care (01) ==
LOC: WOUND CARE 09:08
PROVIDERS: ATTEND Nurse Practitioner
DX: T81.31XD Disruption of external operation (surgical) wound, not elsewhere classified, subsequent encounter (principal); L98.492 Non-pressure chronic ulcer of skin of other sites with fat layer exposed; I12.9 Hypertensive chronic kidney disease with stage 1 through stage 4 chronic kidney disease, or unspecified chronic kidney disease; N18.30 Chronic kidney disease, stage 3 unspecified; J44.9 Chronic obstructive pulmonary disease, unspecified; K21.9 Gastro-esophageal reflux disease without esophagitis; M19.90 Unspecified osteoarthritis, unspecified site; M81.0 Age-related osteoporosis without current pathological fracture; N40.0 Benign prostatic hyperplasia without lower urinary tract symptoms; G89.4 Chronic pain syndrome; M10.9 Gout, unspecified; E78.2 Mixed hyperlipidemia; F41.9 Anxiety disorder, unspecified; F32.9 Major depressive disorder, single episode, unspecified; Z96.653 Presence of artificial knee joint, bilateral; Z79.899 Other long term (current) drug therapy; Z98.890 Other specified postprocedural states; Z90.49 Acquired absence of other specified parts of digestive tract; Z87.891 Personal history of nicotine dependence; Z86.14 Personal history of Methicillin resistant Staphylococcus aureus infection; Y83.8 Other surgical procedures as the cause of abnormal reaction of the patient, or of later complication, without mention of misadventure at the time of the procedure
CPT/HCPCS: 87070; 87075; 87102; 87186; 97597; 97598

== ENCOUNTER 2020-06-26 09:20 | Outpatient (CLI) | payer MEDICARE, MEDICAID ==
[2020-06-26] MEDS ORDERED: LIDOcaine 2% 5ml jelly ONE (10:04)
== END 2020-06-26 23:59 | disposition home or self-care (01) ==
LOC: WOUND CARE 09:20
PROVIDERS: ATTEND Nurse Practitioner
DX: T81.89XD Other complications of procedures, not elsewhere classified, subsequent encounter (principal); L98.492 Non-pressure chronic ulcer of skin of other sites with fat layer exposed; I12.9 Hypertensive chronic kidney disease with stage 1 through stage 4 chronic kidney disease, or unspecified chronic kidney disease; N18.30 Chronic kidney disease, stage 3 unspecified; J44.9 Chronic obstructive pulmonary disease, unspecified; K21.9 Gastro-esophageal reflux disease without esophagitis; M19.90 Unspecified osteoarthritis, unspecified site; M81.0 Age-related osteoporosis without current pathological fracture; N40.0 Benign prostatic hyperplasia without lower urinary tract symptoms; G89.4 Chronic pain syndrome; G47.33 Obstructive sleep apnea (adult) (pediatric); E66.01 Morbid (severe) obesity due to excess calories; K43.2 Incisional hernia without obstruction or gangrene; M10.9 Gout, unspecified; E78.2 Mixed hyperlipidemia; F41.9 Anxiety disorder, unspecified; F32.9 Major depressive disorder, single episode, unspecified; F12.90 Cannabis use, unspecified, uncomplicated; Z96.653 Presence of artificial knee joint, bilateral; Z79.899 Other long term (current) drug therapy; Z98.890 Other specified postprocedural states; Z86.14 Personal history of Methicillin resistant Staphylococcus aureus infection; Z68.41 Body mass index [BMI] 40.0-44.9, adult; Z90.49 Acquired absence of other specified parts of digestive tract; Z87.891 Personal history of nicotine dependence; Y83.8 Other surgical procedures as the cause of abnormal reaction of the patient, or of later complication, without mention of misadventure at the time of the procedure
CPT/HCPCS: 11042

== ENCOUNTER 2020-07-03 08:49 | Outpatient (CLI) | payer MEDICARE, MEDICAID ==
[2020-07-03] MEDS ORDERED: LIDOcaine 2% 5ml jelly ONE (09:21)
== END 2020-07-03 23:59 | disposition home or self-care (01) ==
LOC: WOUND CARE 08:49 → EDSTATUS 09:00 → WOUND CARE 23:59
PROVIDERS: ATTEND Nurse Practitioner
DX: T81.89XD Other complications of procedures, not elsewhere classified, subsequent encounter (principal); L98.492 Non-pressure chronic ulcer of skin of other sites with fat layer exposed; I12.9 Hypertensive chronic kidney disease with stage 1 through stage 4 chronic kidney disease, or unspecified chronic kidney disease; N18.30 Chronic kidney disease, stage 3 unspecified; J44.9 Chronic obstructive pulmonary disease, unspecified; K21.9 Gastro-esophageal reflux disease without esophagitis; M19.90 Unspecified osteoarthritis, unspecified site; M81.0 Age-related osteoporosis without current pathological fracture; N40.0 Benign prostatic hyperplasia without lower urinary tract symptoms; G89.4 Chronic pain syndrome; G47.33 Obstructive sleep apnea (adult) (pediatric); E66.01 Morbid (severe) obesity due to excess calories; K43.2 Incisional hernia without obstruction or gangrene; M10.9 Gout, unspecified; E78.2 Mixed hyperlipidemia; F41.9 Anxiety disorder, unspecified; F32.9 Major depressive disorder, single episode, unspecified; F12.90 Cannabis use, unspecified, uncomplicated; Z96.653 Presence of artificial knee joint, bilateral; Z79.899 Other long term (current) drug therapy; Z98.890 Other specified postprocedural states; Z86.14 Personal history of Methicillin resistant Staphylococcus aureus infection; Z68.41 Body mass index [BMI] 40.0-44.9, adult; Z90.49 Acquired absence of other specified parts of digestive tract; Z87.891 Personal history of nicotine dependence; Y83.8 Other surgical procedures as the cause of abnormal reaction of the patient, or of later complication, without mention of misadventure at the time of the procedure
CPT/HCPCS: 97597; 97598

== ENCOUNTER 2020-07-19 09:04 | Outpatient (CLI) | payer MEDICARE, MEDICAID ==
[2020-07-19] MEDS ORDERED: LIDOcaine 2% 5ml jelly ONE (09:15)
== END 2020-07-19 23:59 | disposition home or self-care (01) ==
LOC: WOUND CARE 09:04
PROVIDERS: ATTEND Nurse Practitioner
DX: T81.89XD Other complications of procedures, not elsewhere classified, subsequent encounter (principal); L98.492 Non-pressure chronic ulcer of skin of other sites with fat layer exposed; I12.9 Hypertensive chronic kidney disease with stage 1 through stage 4 chronic kidney disease, or unspecified chronic kidney disease; N18.30 Chronic kidney disease, stage 3 unspecified; J44.9 Chronic obstructive pulmonary disease, unspecified; K21.9 Gastro-esophageal reflux disease without esophagitis; M19.90 Unspecified osteoarthritis, unspecified site; M81.0 Age-related osteoporosis without current pathological fracture; N40.0 Benign prostatic hyperplasia without lower urinary tract symptoms; G89.4 Chronic pain syndrome; G47.33 Obstructive sleep apnea (adult) (pediatric); E66.01 Morbid (severe) obesity due to excess calories; K43.2 Incisional hernia without obstruction or gangrene; M10.9 Gout, unspecified; E78.2 Mixed hyperlipidemia; F41.9 Anxiety disorder, unspecified; F12.90 Cannabis use, unspecified, uncomplicated; Z96.653 Presence of artificial knee joint, bilateral; Z79.899 Other long term (current) drug therapy; Z98.890 Other specified postprocedural states; Z86.14 Personal history of Methicillin resistant Staphylococcus aureus infection; Z68.41 Body mass index [BMI] 40.0-44.9, adult; Z90.49 Acquired absence of other specified parts of digestive tract; Z87.891 Personal history of nicotine dependence; Y83.8 Other surgical procedures as the cause of abnormal reaction of the patient, or of later complication, without mention of misadventure at the time of the procedure
CPT/HCPCS: 97597; 97598

== ENCOUNTER 2020-07-31 09:08 | Outpatient (CLI) | payer MEDICARE, MEDICAID ==
[2020-07-31] MEDS ORDERED: LIDOcaine 2% 5ml jelly ONE (09:32)
== END 2020-07-31 23:59 | disposition home or self-care (01) ==
LOC: WOUND CARE 09:08
PROVIDERS: ATTEND Nurse Practitioner
DX: T81.89XD Other complications of procedures, not elsewhere classified, subsequent encounter (principal); L98.492 Non-pressure chronic ulcer of skin of other sites with fat layer exposed; I12.9 Hypertensive chronic kidney disease with stage 1 through stage 4 chronic kidney disease, or unspecified chronic kidney disease; N18.30 Chronic kidney disease, stage 3 unspecified; J44.9 Chronic obstructive pulmonary disease, unspecified; K21.9 Gastro-esophageal reflux disease without esophagitis; M19.90 Unspecified osteoarthritis, unspecified site; M81.0 Age-related osteoporosis without current pathological fracture; N40.0 Benign prostatic hyperplasia without lower urinary tract symptoms; G89.4 Chronic pain syndrome; G47.33 Obstructive sleep apnea (adult) (pediatric); E66.01 Morbid (severe) obesity due to excess calories; K43.2 Incisional hernia without obstruction or gangrene; M10.9 Gout, unspecified; E78.2 Mixed hyperlipidemia; F41.9 Anxiety disorder, unspecified; F12.90 Cannabis use, unspecified, uncomplicated; Z96.653 Presence of artificial knee joint, bilateral; Z79.899 Other long term (current) drug therapy; Z98.890 Other specified postprocedural states; Z86.14 Personal history of Methicillin resistant Staphylococcus aureus infection; Z68.41 Body mass index [BMI] 40.0-44.9, adult; Z90.49 Acquired absence of other specified parts of digestive tract; Z87.891 Personal history of nicotine dependence; Y83.8 Other surgical procedures as the cause of abnormal reaction of the patient, or of later complication, without mention of misadventure at the time of the procedure
CPT/HCPCS: 11042; 11045

== ENCOUNTER 2020-08-07 08:58 | Outpatient (CLI) | payer MEDICARE, MEDICAID | END 2020-08-07 23:59 | disposition home or self-care (01) | LOC: WOUND CARE 08:58 | PROVIDERS: ATTEND Nurse Practitioner | DX: T81.89XD Other complications of procedures, not elsewhere classified, subsequent encounter (principal); L98.492 Non-pressure chronic ulcer of skin of other sites with fat layer exposed; I12.9 Hypertensive chronic kidney disease with stage 1 through stage 4 chronic kidney disease, or unspecified chronic kidney disease; N18.30 Chronic kidney disease, stage 3 unspecified; J44.9 Chronic obstructive pulmonary disease, unspecified; K21.9 Gastro-esophageal reflux disease without esophagitis; M19.90 Unspecified osteoarthritis, unspecified site; M81.0 Age-related osteoporosis without current pathological fracture; N40.0 Benign prostatic hyperplasia without lower urinary tract symptoms; G89.4 Chronic pain syndrome; G47.33 Obstructive sleep apnea (adult) (pediatric); E66.01 Morbid (severe) obesity due to excess calories; K43.2 Incisional hernia without obstruction or gangrene; M10.9 Gout, unspecified; E78.2 Mixed hyperlipidemia; E78.5 Hyperlipidemia, unspecified; F32.9 Major depressive disorder, single episode, unspecified; F41.9 Anxiety disorder, unspecified; F12.90 Cannabis use, unspecified, uncomplicated; Z96.653 Presence of artificial knee joint, bilateral; Z79.899 Other long term (current) drug therapy; Z98.890 Other specified postprocedural states; Z86.14 Personal history of Methicillin resistant Staphylococcus aureus infection; Z68.41 Body mass index [BMI] 40.0-44.9, adult; Z90.49 Acquired absence of other specified parts of digestive tract; Z87.891 Personal history of nicotine dependence; Y83.8 Other surgical procedures as the cause of abnormal reaction of the patient, or of later complication, without mention of misadventure at the time of the procedure | CPT/HCPCS: G0463 ==

== ENCOUNTER → 2020-11-01 | Outpatient (CLI) | payer MEDICARE, MEDICAID ==
[~2020-11-01] MED LIST changes: -HYDR50TA3 PO; +HYDR50TA4 PO; +LIDOcaine 2% 5ml jelly ONE; +LISI40TA13 PO; -LISI40TA4 PO
== END | disposition home or self-care (01) ==
LOC: EDSTATUS 08:00 → WOUND CARE 08:44
PROVIDERS: ATTEND Nurse Practitioner
DX: T81.89XD Other complications of procedures, not elsewhere classified, subsequent encounter (principal); L98.492 Non-pressure chronic ulcer of skin of other sites with fat layer exposed; I12.9 Hypertensive chronic kidney disease with stage 1 through stage 4 chronic kidney disease, or unspecified chronic kidney disease; N18.30 Chronic kidney disease, stage 3 unspecified; J44.9 Chronic obstructive pulmonary disease, unspecified; K21.9 Gastro-esophageal reflux disease without esophagitis; M19.90 Unspecified osteoarthritis, unspecified site; M81.0 Age-related osteoporosis without current pathological fracture; N40.0 Benign prostatic hyperplasia without lower urinary tract symptoms; G89.4 Chronic pain syndrome; G47.33 Obstructive sleep apnea (adult) (pediatric); E66.01 Morbid (severe) obesity due to excess calories; K43.2 Incisional hernia without obstruction or gangrene; M10.9 Gout, unspecified; E78.2 Mixed hyperlipidemia; E78.5 Hyperlipidemia, unspecified; F32.9 Major depressive disorder, single episode, unspecified; F41.9 Anxiety disorder, unspecified; F12.90 Cannabis use, unspecified, uncomplicated; Z96.653 Presence of artificial knee joint, bilateral; Z79.899 Other long term (current) drug therapy; Z98.890 Other specified postprocedural states; Z86.14 Personal history of Methicillin resistant Staphylococcus aureus infection; Z68.41 Body mass index [BMI] 40.0-44.9, adult; Z90.49 Acquired absence of other specified parts of digestive tract; Z87.891 Personal history of nicotine dependence; Y83.8 Other surgical procedures as the cause of abnormal reaction of the patient, or of later complication, without mention of misadventure at the time of the procedure
CPT/HCPCS: 11042; 11045

== ENCOUNTER 2020-12-02 09:21 | Emergency (ER) | payer MEDICARE, MEDICAID ==
[~2020-12-02] VITALS: Ht 172.7 cm; Wt 125.5 kg
[~2020-12-02 09:21] MED LIST changes: -LIDOcaine 2% 5ml jelly ONE
[2020-12-02] MEDS ORDERED: normal saline 1000ML IV soln IV ONE (09:45)
--- NOTE | 2020-12-02 10:00 | NUR ---
PATIENT HERE DUE TO INCREASING ABDOMINAL PAIN, POOR PO INTAKE: JUST A SIP OF WATER IN THELAST 24 HRS, AND BLOOD CAME OUT WHENHE TRIED TO DEFACATE THIS AM PATIENTHAS BEEN TAKING IBUPROFEN FOR PAINAND CBD. PATIENT IS TAKING SUBXOXNE 4 MG BID LEFT ABDOMEN FEELS TIGHTER THAN RIGHT, BOWEL SOUNDS MORE PROMINENT ON RIGHT PATIENT IS WEARING ANABDOMINAL BINDER: 4 OPEN AREAS ON HIS MIDLINE SCAR, MESH LEFT IN PLACE, WOUND CULTURED AND NEW ISLAND DRESSING PLACED
[2020-12-02 10:27] LABS: BASOPHILS # (AUTO) 0.1 X10'3 (0-0.2); BASOPHILS % (AUTO) 0.8 % (0-1); EOSINOPHILS # (AUTO) 0.3 X10'3 (0-0.9); EOSINOPHILS % (AUTO) 2.3 % (0-6); HEMATOCRIT 35.6 % (42.0-52.0); HEMOGLOBIN 11.7 g/dl (14.0-17.9); MEAN CORPUSCULAR HEMOGLOBIN 29.5 PG (27.0-31.0); MEAN CORPUSCULAR HGB CONC 32.7 g/dL (33.0-36.5); MEAN PLATELET VOLUME 8.3 FL (7.4-10.4); MONOCYTES # (AUTO) 0.8 X10'3 (0-0.9); MONOCYTES % (AUTO) 6.5 % (2-12); NEUTROPHILS # (AUTO) 10.3 X10'3 (1.8-7.7); NEUTROPHILS % (AUTO) 82.4 % (42-75); PLATELET COUNT 329 X10'3 (140-440); RED BLOOD COUNT 3.96 X10'6 (4.70-6.10); WHITE BLOOD COUNT 12.6 X10'3 (4.5-11.0)
[2020-12-02 10:38] LABS: PARTIAL THROMBOPLASTIN TIME 26 SECONDS (22-32)
[2020-12-02 10:40] LABS: ALANINE AMINOTRANSFERASE 20 U/L (12-78); ALBUMIN 3.5 G/DL (3.4-5.0); ALBUMIN/GLOBULIN RATIO 0.9 (1.1-1.5); ALKALINE PHOSPHATASE 57 IU/L (46-116); AMYLASE 35 U/L (25-115); ANION GAP 12 (8-16); ASPARTATE AMINO TRANSFERASE 14 U/L (10-37); BILIRUBIN,TOTAL 0.3 MG/DL (0.1-1.0); BLOOD UREA NITROGEN 34 MG/DL (7-18); BUN/CREATININE RATIO 19.7 (5.4-32.0); CALCIUM 9.4 MG/DL (8.5-10.1); CHLORIDE 100 MMOL/L (99-107); CREATININE 1.73 MG/DL (0.60-1.10); GLUCOSE 114 MG/DL (70-104); LIPASE 68 U/L (73-393); MAGNESIUM 1.5 MG/DL (1.5-2.4); POTASSIUM 4.6 MMOL/L (3.5-5.1); SODIUM 138 MMOL/L (135-145); TOTAL CARBON DIOXIDE 26.4 MMOL/L (24-32); TOTAL PROTEIN 7.4 G/DL (6.4-8.2); eGFR 41 ML/MIN
[2020-12-02] MEDS ORDERED: iohexol 300mg/ml 100ml inj. ONE (11:08)
--- NOTE | 2020-12-02 11:11 | NUR ---
to ct scan
[2020-12-02 11:17] LABS: CLARITY,URINE CLEAR (Clear); COLOR,URINE YELLOW (Yellow); GLUCOSE, URINE NEGATIVE (Neg); KETONES,URINE NEGATIVE (Neg); LEUKOCYTE ESTERASE ,URINE NEGATIVE (Neg); NITRITES, URINE NEGATIVE (Neg); OCCULT BLOOD,URINE NEGATIVE (Neg); PH,URINE 5.5 (4.8-8.0); PROTEIN,URINE NEGATIVE (Neg); UROBILINOGEN,URINE 0.2 E.U/dL (0.2-1.0)
[2020-12-02 11:20] LABS: UA COLLECTION TYPE URINAL
[2020-12-02] MEDS ORDERED: CIPR-259 PO (12:01)
[2020-12-02] MEDS ORDERED: METR-159 PO (12:01)
[2020-12-02 12:24] VITALS: BP 138/66
--- NOTE | 2020-12-02 12:24 | NUR ---
pa does not want to do hemocult at this time
== END 2020-12-02 12:39 | disposition home or self-care (01) ==
LOC: ER 09:22
DX: S31.109A Unspecified open wound of abdominal wall, unspecified quadrant without penetration into peritoneal cavity, initial encounter (principal); K57.92 Diverticulitis of intestine, part unspecified, without perforation or abscess without bleeding; I10 Essential (primary) hypertension; G47.30 Sleep apnea, unspecified; J44.9 Chronic obstructive pulmonary disease, unspecified; F12.90 Cannabis use, unspecified, uncomplicated; M10.9 Gout, unspecified; Z88.0 Allergy status to penicillin; Z88.8 Allergy status to other drugs, medicaments and biological substances; Z79.899 Other long term (current) drug therapy; X58.XXXA Exposure to other specified factors, initial encounter; Y93.89 Activity, other specified; Y92.89 Other specified places as the place of occurrence of the external cause; Y99.8 Other external cause status
CPT/HCPCS: 36415; 74177; 80053; 81003; 82150; 83605; 83690; 83735; 84145; 85025; 85610; 85730; 87040; 87070; 87075; 87186; 93005; 96360; 96361; 99285; J7030; Q9967; 87077

== ENCOUNTER 2021-03-15 19:38 | Observation (INO) | payer BC, MEDICAID ==
[~2021-03-15] VITALS: Ht 172.7 cm; Wt 112.0 kg
[2021-03-15] MEDS ORDERED: iohexol 350MG/ML 100ml bottle IV ONE (20:13)
[2021-03-15] MEDS ORDERED: aspirin 325mg tablet PO ONE (20:30)
[2021-03-15 20:47] LABS: BASOPHILS % (AUTO) 0.3 % (0-1); EOSINOPHILS # (AUTO) 0.4 X10'3 (0-0.9); EOSINOPHILS % (AUTO) 4.6 % (0-6); HEMATOCRIT 26.2 % (42.0-52.0); HEMOGLOBIN 8.7 g/dl (14.0-17.9); LYMPHOCYTES # (AUTO) 1.5 X10'3 (1.1-4.8); LYMPHOCYTES % (AUTO) 16.9 % (21-51); MEAN CORPUSCULAR HEMOGLOBIN 28.5 PG (27.0-31.0); MEAN CORPUSCULAR HGB CONC 33.2 g/dL (33.0-36.5); MEAN CORPUSCULAR VOLUME 85.8 FL (78-98); MEAN PLATELET VOLUME 8.6 FL (7.4-10.4); MONOCYTES # (AUTO) 0.7 X10'3 (0-0.9); NEUTROPHILS # (AUTO) 6.4 X10'3 (1.8-7.7); NEUTROPHILS % (AUTO) 70.2 % (42-75); PLATELET COUNT 291 X10'3 (140-440); RED BLOOD COUNT 3.06 X10'6 (4.70-6.10); RED CELL DISTRIBUTION WIDTH 15.3 % (11.5-14.5); WHITE BLOOD COUNT 9.1 X10'3 (4.5-11.0)
[2021-03-15 20:54] LABS: CLARITY,URINE CLEAR (Clear); COLOR,URINE YELLOW (Yellow); GLUCOSE, URINE NEGATIVE (Neg); KETONES,URINE NEGATIVE (Neg); LEUKOCYTE ESTERASE ,URINE NEGATIVE (Neg); NITRITES, URINE NEGATIVE (Neg); OCCULT BLOOD,URINE NEGATIVE (Neg); PH,URINE 5.5 (4.8-8.0); PROTEIN,URINE NEGATIVE (Neg); UROBILINOGEN,URINE 0.2 E.U/dL (0.2-1.0)
[2021-03-15 21:00] LABS: ALANINE AMINOTRANSFERASE 27 U/L (12-78); ALBUMIN 3.5 G/DL (3.4-5.0); ALBUMIN/GLOBULIN RATIO 0.8 (1.1-1.5); ALKALINE PHOSPHATASE 111 IU/L (46-116); ANION GAP 10 (8-16); ASPARTATE AMINO TRANSFERASE 21 U/L (10-37); BILIRUBIN,TOTAL 0.3 MG/DL (0.1-1.0); BLOOD UREA NITROGEN 50 MG/DL (7-18); BUN/CREATININE RATIO 26.3 (5.4-32.0); CALCIUM 8.6 MG/DL (8.5-10.1); CHLORIDE 102 MMOL/L (99-107); GLUCOSE 83 MG/DL (70-104); POTASSIUM 5.2 MMOL/L (3.5-5.1); SODIUM 138 MMOL/L (135-145); TOTAL PROTEIN 7.8 G/DL (6.4-8.2); eGFR 37 ML/MIN
[2021-03-15 21:04] LABS: UA COLLECTION TYPE STRAIGHT CATH
[2021-03-15 21:04] LABS: PARTIAL THROMBOPLASTIN TIME 23 SECONDS (22-32)
[2021-03-15] MEDS ORDERED: naloxone 0.4 mg/ml inj IV ONE (21:05)
[2021-03-15 21:38] LABS: ETHANOL < 0.010 GM/DL (0.0-0.010)
[2021-03-15 21:40] LABS: URINE AMPHETAMINE SCREEN POSITIVE (Neg); URINE BARBITUATE SCREEN NEGATIVE (Neg); URINE BENZODIAZEPINES SCREEN NEGATIVE (Neg); URINE CANNABINOID SCREEN NEGATIVE (Neg); URINE COCAINE SCREEN NEGATIVE (Neg); URINE METHADONE SCREEN NEGATIVE (Neg); URINE OPIATE SCREEN NEGATIVE (Neg); URINE PHENCYCLIDINE SCREEN NEGATIVE (Neg)
[2021-03-15] MEDS ORDERED: DILT180C49 PO (22:52)
[2021-03-15] MEDS ORDERED: BUPR1FIL20 SL (22:52)
[2021-03-15] MEDS ORDERED: ONDA4TAB12 PO (22:53)
[2021-03-15] MEDS ORDERED: IBUP-1985 PO (22:54)
[2021-03-15] MEDS ORDERED: DULO60CA65 PO (22:54)
[2021-03-15] MEDS ORDERED: mag hydrox/Alum hydrox/simeth 30ml oral suspension PO PRN (23:00)
[2021-03-15] MEDS ORDERED: magnesium hydroxide 30ml (MOM) UD suspension PO PRN (23:00)
[2021-03-15] MEDS ORDERED: ondansetron/PF 4mg/2ml inj IV PRN (23:00)
[2021-03-15] MEDS ORDERED: albuterol 2.5 MG/3 ML nebule NEB PRN (23:20)
[2021-03-16] VITALS (7 sets, daily range): BP systolic 114–152; BP diastolic 53–81
--- NOTE | 2021-03-16 00:23 | NUR ---
I have received report from Cap RN in ER, via telephone and had the opportunity to ask questions.
--- NOTE | 2021-03-16 00:50 | NUR ---
Patient arrived to the floor at this time, via maximiliano with Marzena TYSON. Personal belongings (shirt, flip-flops, shorts, wallet, cell phone) placed in plastic bag inside patient assigned closet, boxers remained on patient. He appears fatigued, but in stable condition. Will cont.. to monitor per hospital policy.
[2021-03-16] MEDS ORDERED: iohexol 350MG/ML 100ml bottle IV ONE (03:13)
--- NOTE | 2021-03-16 06:28 | NUR ---
Problems reprioritized. Patient report given, questions answered & plan of care reviewed with Gauri TYSON.
[2021-03-16 06:39] LABS: BASOPHILS % (AUTO) 0.1 % (0-1); EOSINOPHILS # (AUTO) 0.3 X10'3 (0-0.9); EOSINOPHILS % (AUTO) 3.9 % (0-6); HEMATOCRIT 31.4 % (42.0-52.0); HEMOGLOBIN 10.2 g/dl (14.0-17.9); MEAN CORPUSCULAR HEMOGLOBIN 28.2 PG (27.0-31.0); MEAN CORPUSCULAR HGB CONC 32.4 g/dL (33.0-36.5); MEAN CORPUSCULAR VOLUME 87.1 FL (78-98); MEAN PLATELET VOLUME 8.8 FL (7.4-10.4); MONOCYTES # (AUTO) 0.7 X10'3 (0-0.9); MONOCYTES % (AUTO) 8.2 % (2-12); NEUTROPHILS # (AUTO) 6.2 X10'3 (1.8-7.7); NEUTROPHILS % (AUTO) 75.8 % (42-75); PLATELET COUNT 258 X10'3 (140-440); RED CELL DISTRIBUTION WIDTH 15.2 % (11.5-14.5); WHITE BLOOD COUNT 8.2 X10'3 (4.5-11.0)
[2021-03-16 07:00] LABS: ALANINE AMINOTRANSFERASE 28 U/L (12-78); ALBUMIN 3.2 G/DL (3.4-5.0); ALBUMIN/GLOBULIN RATIO 0.8 (1.1-1.5); ALKALINE PHOSPHATASE 105 IU/L (46-116); ANION GAP 9 (8-16); ASPARTATE AMINO TRANSFERASE 18 U/L (10-37); BILIRUBIN,TOTAL 0.6 MG/DL (0.1-1.0); BLOOD UREA NITROGEN 39 MG/DL (7-18); CHLORIDE 105 MMOL/L (99-107); CREATININE 1.26 MG/DL (0.60-1.10); GLUCOSE 100 MG/DL (70-104); POTASSIUM 5.7 MMOL/L (3.5-5.1); SODIUM 139 MMOL/L (135-145); TOTAL CARBON DIOXIDE 25.4 MMOL/L (24-32); TOTAL PROTEIN 7.4 G/DL (6.4-8.2); eGFR 59 ML/MIN
[2021-03-16] MEDS: atorvastatin 20mg tablet PO SCH (07:49)
[2021-03-16] MEDS: duloxetine 30mg CAPSULE.DR PO SCH (07:49)
[2021-03-16] MEDS: metoprolol succinate 25mg (24-HOUR) SR. Tablet PO SCH (07:49)
[2021-03-16] MEDS: diltiazem CD 180mg cap (once-daily) PO SCH (07:50)
[2021-03-16] MEDS: pantoprazole 40mg Tablet.DR PO SCH (07:50)
[2021-03-16] MEDS: heparin, porcine 5000 units/ml vial SQ SCH ×2 (07:51→20:43)
[2021-03-16] MEDS ORDERED: buprenorphine/naloxone 8MG-2MG SUBlingual film SL SCH ×3 (08:00→21:00)
--- NOTE | 2021-03-16 09:00 | NUR ---
0900- Physician made aware patient is complaining of right knee pain and is swollen.
[2021-03-16] MEDS ORDERED: sodium polystyrene sulfonate 15gm/60ml oral suspension PO ONE (10:45)
[2021-03-16] MEDS ORDERED: ondansetron 4mg rapidly disintigrating tab PO PRN (12:20)
[2021-03-16] MEDS: acetaminophen 325mg tablet PO PRN (13:44)
--- NOTE | 2021-03-16 14:16 | NUR ---
page to physician PAGER ID: [phone] MESSAGE: [id number]- Selene- MRI results in. Pt request Tylenol PO for pain. Gauri [id number]
--- NOTE | 2021-03-16 16:00 | NUR ---
Abdominal dressing changed and pictures taken. Cleansed with normal saline. Versatel and island dressing placed.
--- NOTE | 2021-03-16 17:42 | NUR ---
Physician paged PAGER ID: [phone] MESSAGE: [phone] Selene- Repeat K was 5.2 at 1700 from 5.7 after Kayexalate given at 1145. Gauri [id number] Physician called back to give milk of magnesia. Also, okay to give Tylenol for pain.
[2021-03-16] MEDS ORDERED: acetaminophen 325mg tablet PO PRN (18:00)
--- NOTE | 2021-03-16 18:38 | NUR ---
Report given to Eva
[2021-03-16] MEDS ORDERED: tamsulosin 0.4mg capsule PO SCH (21:00)
[2021-03-16] MEDS ORDERED: ziprasidone 20mg capsule PO SCH (21:00)
[2021-03-16] MEDS ORDERED: buprenorphine/naloxone 2-0.5mg sublingual tablet SL SCH (21:00)
[2021-03-16] MEDS ORDERED: fenofibrate 145mg tablet PO SCH (21:00)
[2021-03-17 02:00] VITALS: BP 108/48
[2021-03-17 06:00] VITALS: BP 147/70
--- NOTE | 2021-03-17 06:04 | NUR ---
Problems reprioritized. Patient report given, questions answered & plan of care reviewed with Gauri TYSON.
[2021-03-17 06:23] LABS: BASOPHILS % (AUTO) 0.2 % (0-1); EOSINOPHILS # (AUTO) 0.2 X10'3 (0-0.9); EOSINOPHILS % (AUTO) 3.1 % (0-6); HEMATOCRIT 30.7 % (42.0-52.0); HEMOGLOBIN 10.2 g/dl (14.0-17.9); LYMPHOCYTES # (AUTO) 1.6 X10'3 (1.1-4.8); MEAN CORPUSCULAR HEMOGLOBIN 28.3 PG (27.0-31.0); MEAN CORPUSCULAR HGB CONC 33.3 g/dL (33.0-36.5); MEAN PLATELET VOLUME 8.5 FL (7.4-10.4); MONOCYTES # (AUTO) 0.7 X10'3 (0-0.9); MONOCYTES % (AUTO) 9.2 % (2-12); NEUTROPHILS # (AUTO) 5.1 X10'3 (1.8-7.7); NEUTROPHILS % (AUTO) 66.5 % (42-75); PLATELET COUNT 260 X10'3 (140-440); RED BLOOD COUNT 3.62 X10'6 (4.70-6.10); RED CELL DISTRIBUTION WIDTH 15.6 % (11.5-14.5); WHITE BLOOD COUNT 7.6 X10'3 (4.5-11.0)
[2021-03-17 06:30] LABS: ALANINE AMINOTRANSFERASE 28 U/L (12-78); ALBUMIN/GLOBULIN RATIO 0.7 (1.1-1.5); ALKALINE PHOSPHATASE 107 IU/L (46-116); ANION GAP 6 (8-16); ASPARTATE AMINO TRANSFERASE 18 U/L (10-37); BILIRUBIN,TOTAL 0.4 MG/DL (0.1-1.0); BLOOD UREA NITROGEN 23 MG/DL (7-18); CALCIUM 8.8 MG/DL (8.5-10.1); CHLORIDE 103 MMOL/L (99-107); GLUCOSE 94 MG/DL (70-104); POTASSIUM 4.3 MMOL/L (3.5-5.1); SODIUM 137 MMOL/L (135-145); TOTAL CARBON DIOXIDE 28.1 MMOL/L (24-32); TOTAL PROTEIN 7.1 G/DL (6.4-8.2); eGFR 77 ML/MIN
[2021-03-17] MEDS: acetaminophen 325mg tablet PO PRN (07:59)
[2021-03-17] MEDS: diltiazem CD 180mg cap (once-daily) PO SCH (08:00)
[2021-03-17] MEDS: metoprolol succinate 25mg (24-HOUR) SR. Tablet PO SCH (08:00)
[2021-03-17] MEDS ORDERED: buprenorphine/naloxone 8MG-2MG SUBlingual film SL SCH (08:00)
[2021-03-17] MEDS: atorvastatin 20mg tablet PO SCH (08:00)
[2021-03-17] MEDS: pantoprazole 40mg Tablet.DR PO SCH (08:01)
[2021-03-17] MEDS: duloxetine 30mg CAPSULE.DR PO SCH (08:01)
[2021-03-17] MEDS: heparin, porcine 5000 units/ml vial SQ SCH (08:02)
[2021-03-17] MEDS ORDERED: ketorolac trometh. 30mg/ml inj. IV PRN (09:25)
--- NOTE | 2021-03-17 09:27 | NUR ---
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 Gauri [id number]
[2021-03-17 11:00] VITALS: BP 158/62
--- NOTE | 2021-03-17 13:58 | NUR ---
Patient stable for discharge. Discharge instructions given. PIV removed with catheter intact. Telemetry removed. All possessions with patient. Patient transferred off unit with wheelchair to friend's vehicle.
== END 2021-03-17 13:43 | disposition home or self-care (01) ==
LOC: ER 19:39 → ED HOLD 22:57 → PCU 3S 03-16 01:11
PROVIDERS: ADMIT Internal Medicine; ATTEND Family Medicine
DX: R55 Syncope and collapse (principal); E86.0 Dehydration; F15.10 Other stimulant abuse, uncomplicated; G89.4 Chronic pain syndrome; E87.5 Hyperkalemia; N17.0 Acute kidney failure with tubular necrosis; S80.01XA Contusion of right knee, initial encounter; I10 Essential (primary) hypertension; J44.9 Chronic obstructive pulmonary disease, unspecified; E78.5 Hyperlipidemia, unspecified; H53.8 Other visual disturbances; R51.9 Headache, unspecified; Z98.890 Other specified postprocedural states; Z87.891 Personal history of nicotine dependence; Z88.0 Allergy status to penicillin; Z88.6 Allergy status to analgesic agent; Z79.899 Other long term (current) drug therapy; W01.0XXA Fall on same level from slipping, tripping and stumbling without subsequent striking against object, initial encounter; Y93.89 Activity, other specified; Y92.89 Other specified places as the place of occurrence of the external cause; Y99.8 Other external cause status
CPT/HCPCS: 36415; 70450; 70496; 70498; 70551; 71045; 73030; 73560; 80053; 80305; 80320; 81003; 82948; 84132; 84443; 85025; 85610; 85730; 86885; 86900; 86901; 87081; 93005; 96372; 96374; 96375; 97110; 97116; 97161; 99285; G0378; J1644; J1885; J2310; Q9967

== ENCOUNTER 2022-01-26 10:16 | Emergency (ER) | payer BC, MEDICAID ==
[~2022-01-26] VITALS: Ht 172.7 cm; Wt 111.8 kg
[~2022-01-26 10:16] MED LIST changes: +BUPR1FIL20 SL; -DILT120C51 PO; +DILT180C49 PO; +DULO60CA65 PO; +IBUP-1985 PO; -LEVO750T46 PO; -METR500T PO; +ONDA4TAB12 PO
[2022-01-26 10:53] LABS: CLARITY,URINE CLEAR (Clear); GLUCOSE, URINE NEGATIVE (Neg); KETONES,URINE NEGATIVE (Neg); LEUKOCYTE ESTERASE ,URINE NEGATIVE (Neg); NITRITES, URINE NEGATIVE (Neg); OCCULT BLOOD,URINE NEGATIVE (Neg); PH,URINE 5.5 (4.8-8.0); PROTEIN,URINE TRACE mg/dl (Neg); UROBILINOGEN,URINE 0.2 E.U/dL (0.2-1.0)
[2022-01-26 10:54] LABS: COLOR,URINE STRAW (Yellow); UA COLLECTION TYPE CLN CATCH MIDSTREAM
[2022-01-26] MEDS ORDERED: ondansetron/PF 4mg/2ml inj IV ONE ×2 (10:55→11:45)
[2022-01-26] MEDS ORDERED: morphine 4 MG/ML inj SYRINge IV ONE (10:55)
[2022-01-26] MEDS ORDERED: normal saline 1000ML IV soln IVB ONE (10:55)
[2022-01-26 10:57] LABS: BASOPHILS % (AUTO) 0.1 % (0-1); EOSINOPHILS # (AUTO) 0.1 X10'3 (0-0.9); EOSINOPHILS % (AUTO) 0.6 % (0-6); HEMATOCRIT 38.7 % (42.0-52.0); HEMOGLOBIN 12.6 g/dl (14.0-17.9); LYMPHOCYTES # (AUTO) 0.7 X10'3 (1.1-4.8); MEAN CORPUSCULAR HEMOGLOBIN 29.4 PG (27.0-31.0); MEAN CORPUSCULAR HGB CONC 32.7 g/dL (33.0-36.5); MEAN CORPUSCULAR VOLUME 90.1 FL (78-98); MONOCYTES # (AUTO) 0.3 X10'3 (0-0.9); NEUTROPHILS # (AUTO) 10.4 X10'3 (1.8-7.7); NEUTROPHILS % (AUTO) 90.3 % (42-75); PLATELET COUNT 272 X10'3 (140-440); RED BLOOD COUNT 4.29 X10'6 (4.70-6.10); RED CELL DISTRIBUTION WIDTH 14.8 % (11.5-14.5); WHITE BLOOD COUNT 11.5 X10'3 (4.5-11.0)
[2022-01-26 11:03] LABS: BACTERIA,URINE NONE SEEN /HPF (Neg); MUCUS STRANDS NONE SEEN /LPF (Neg); RBC,URINE NONE SEEN /HPF (0-2); SQUAMOUS EPITHELIAL CELL,UR FEW /LPF (FEW); WBC,URINE 0-4 /HPF (0-4)
[2022-01-26 11:13] LABS: ALANINE AMINOTRANSFERASE 30 U/L (12-78); ALBUMIN 3.8 G/DL (3.4-5.0); ALKALINE PHOSPHATASE 143 IU/L (46-116); ASPARTATE AMINO TRANSFERASE 19 U/L (10-37); BILIRUBIN,TOTAL 0.4 MG/DL (0.1-1.0); BLOOD UREA NITROGEN 25 MG/DL (7-18); BUN/CREATININE RATIO 22.5 (5.4-32.0); CALCIUM 9.1 MG/DL (8.5-10.1); CHLORIDE 103 MMOL/L (99-107); CREATININE 1.11 MG/DL (0.60-1.10); GLUCOSE 187 MG/DL (70-104); LIPASE 79 U/L (73-393); POTASSIUM 4.2 MMOL/L (3.5-5.1); SODIUM 139 MMOL/L (135-145); TOTAL PROTEIN 7.7 G/DL (6.4-8.2); eGFR 68 ML/MIN
[2022-01-26 11:21] LABS: ANION GAP 12 (8-16); TOTAL CARBON DIOXIDE 24.2 MMOL/L (24-32)
[2022-01-26] MEDS ORDERED: morphine 10mg/ml inj. IV ONE (11:45)
[2022-01-26] MEDS ORDERED: POLY119P2 PO (12:42)
[2022-01-26] MEDS ORDERED: BISA10SU60 RC (12:42)
[2022-01-26 12:59] VITALS: BP 162/92
--- NOTE | 2022-01-26 13:15 | NUR ---
Pt given and understands d/c instructions. IV d/c'd, catheter was intact. Ambulatory with a steady gait.
[2022-01-26 13:46] LABS: OCCULT BLOOD STOOL POSITIVE (Neg)
== END 2022-01-26 13:18 | disposition home or self-care (01) ==
LOC: ER 10:16
DX: R10.84 Generalized abdominal pain (principal); K59.00 Constipation, unspecified; R11.0 Nausea; K92.1 Melena; I10 Essential (primary) hypertension; J44.9 Chronic obstructive pulmonary disease, unspecified; M10.9 Gout, unspecified; F12.90 Cannabis use, unspecified, uncomplicated; Z98.890 Other specified postprocedural states; Z72.89 Other problems related to lifestyle; Z88.0 Allergy status to penicillin; Z88.8 Allergy status to other drugs, medicaments and biological substances; Z79.899 Other long term (current) drug therapy
CPT/HCPCS: 36415; 71045; 74176; 80053; 81001; 82272; 83605; 83690; 84145; 85025; 93005; 96361; 96374; 96375; 96376; 99285; J2270; J2274; J2405; J7030

== ENCOUNTER 2024-03-14 10:48 | Emergency (ER) | payer BC, MEDICAID ==
[~2024-03-14] VITALS: Ht 172.7 cm; Wt 127.3 kg
[~2024-03-14 10:48] MED LIST changes: -ALLO300T2 PO; +ALLO300T8 PO; +BACL20TA PO; -BACL20TA7 PO; -DILT180C49 PO; +DOCU-391 PO; -FENO160T30 PO; +FURO20TA4 PO; -GABA-530 PO; +GABA600T13 PO; +HYDR25TA4 PO; -HYDR50TA4 PO; -IBUP-1985 PO; -LACT1CAP26 PO; +NIFE-72 PO; -ONDA4TAB12 PO; -PANT40TA54 PO; +TRAZ-251 PO; -ZIPR60CA2 PO; +ZIPR60CA7 PO
[2024-03-14 11:09] VITALS: BP 123/71; PULSE 106; RESP 14; TEMP 98.6; O2SAT 95
== END 2024-03-14 11:46 | disposition home or self-care (01) ==
LOC: ER 10:49
DX: M25.561 Pain in right knee (principal); M25.562 Pain in left knee; I10 Essential (primary) hypertension; J44.9 Chronic obstructive pulmonary disease, unspecified; F12.90 Cannabis use, unspecified, uncomplicated; Z88.0 Allergy status to penicillin; Z88.8 Allergy status to other drugs, medicaments and biological substances; Z79.899 Other long term (current) drug therapy
CPT/HCPCS: 99283

== ENCOUNTER 2024-05-01 21:49 | Emergency (ER) | payer BC, MEDICAID ==
[~2024-05-01] VITALS: Ht 172.7 cm; Wt 108.8 kg
[2024-05-01] MEDS: ketorolac trometh 30MG/ML vial 30 MG/ML VIAL IM ONE (23:09)
--- NOTE | 2024-05-01 23:29 | NUR ---
Verbal order given by Dr. Galan for topical bacitracin ointment to be applied to left hand.
[2024-05-01] MEDS ORDERED: bacitracin ointment unit dose packet TP SCH (23:30)
[2024-05-01] MEDS ORDERED: HYDR-3965 PO (23:44)
[2024-05-02] MEDS: bacitracin ointment unit dose packet TP ONE (00:06)
[2024-05-02 00:07] VITALS: BP 101/49; PULSE 90; RESP 16; TEMP 98.2; O2SAT 97
== END 2024-05-02 00:10 | disposition home or self-care (01) ==
LOC: ER 21:50
DX: M54.50 Low back pain, unspecified (principal); I10 Essential (primary) hypertension; J44.9 Chronic obstructive pulmonary disease, unspecified; F12.90 Cannabis use, unspecified, uncomplicated; Z88.0 Allergy status to penicillin; Z88.8 Allergy status to other drugs, medicaments and biological substances; Z79.899 Other long term (current) drug therapy; Z79.1 Long term (current) use of non-steroidal anti-inflammatories (NSAID)
CPT/HCPCS: 72170; 96372; 99283; J1885